=== PATIENT | male | born 1950 | race Caucasian/White ===

== ENCOUNTER 2020-12-05 15:38 | Outpatient (REF) | payer BC, SELFPAY ==
--- NOTE | ~2020-12-05 | XR_ITS ---
EXAMINATION: XR CERVICAL SPINE CLINICAL INFORMATION: Left neck pain COMPARISON: Previous x-ray chest x-ray September 2009 TECHNIQUE: 3 views of the cervical spine were obtained. FINDINGS: There is exaggerated cervical lordosis. There is slight curvature of the lower cervical spine to the right. Bone alignment is otherwise normal. No fracture or dislocation is seen. There is degenerative spondylosis and degenerative disc disease at C5-C6 and C6-C7. Prevertebral soft tissues are normal. There is soft tissue calcification in the nuchal ligament. There is question of a small 4 mm right apical nodule. This overlies the right anterior first rib and may be related to the bone. XR/XR cervical spine 3V IMPRESSION: Exaggerated cervical lordosis. Degenerative spondylosis and degenerative disc disease at C5-C6 and C6-C7. Question small right apical nodule.
== END 2020-12-05 15:39 | disposition home or self-care (01) ==
LOC: HO.XRAY 15:38
PROVIDERS: PCP Internal Medicine; Visit Provider Internal Medicine
DX: M54.2 Cervicalgia (principal)
CPT/HCPCS: 72040

== ENCOUNTER 2022-05-06 10:29 | Day surgery (SDC) | payer BC, SELFPAY ==
--- NOTE | 2022-05-05 10:52 | P.CONAN_ITS ---
Documented by User: Makayla Chase NP 05/05/22 10:52 HPI - Anesthesia Eval Consult details Narrative: 71yo M for Colonoscopy [facility] Past Medical History Medical History (Updated 05/01/22 @ 08:22 by Bree Veloz RN) BPH (benign prostatic hyperplasia) COPD (chronic obstructive pulmonary disease) GERD (gastroesophageal reflux disease) HTN (hypertension) Surgical History Surgical History (Updated 05/01/22 @ 08:22 by Bree Veloz RN) History of back surgery Hx of colonoscopy Hx of knee surgery Social History Social History Patient Tobacco Use Status: Current everyday Tobacco user Cigarettes Per Day: 8 Use of substances other than those prescribed or required for medical reasons: No Are you DNR?: No Advance Directives: No Advance Directives Information Provided: Yes Meds Allergies Allergy/AdvReac Type Severity Reaction Status Date / Time clarithromycin [Biaxin] Allergy Unknown nausea and Verified 05/01/22 08:23 vomiting Exam Exam Date and Time: May 05, 2022 1052 Assessment and Plan Assessment Anesthesia Assessment: Chart Reviewed Documented by User: Killian Dimas MD 05/06/22 16:51 [facility] Past Medical History Medical History (Updated 05/01/22 @ 08:22 by Bree Veloz RN) BPH (benign prostatic hyperplasia) COPD (chronic obstructive pulmonary disease) GERD (gastroesophageal reflux disease) HTN (hypertension) Functional capacity: independent ambulation Family History Family history of problems with anesthesia: No Surgical History Surgical History (Updated 05/01/22 @ 08:22 by Bree Veloz RN) History of back surgery Hx of colonoscopy Hx of knee surgery History of Problems with Anesthesia: No Social History Social History Patient Tobacco Use Status: Current everyday Tobacco user Cigarettes Per Day: 8 Use of substances other than those prescribed or required for medical reasons: No Are you DNR?: No Advance Directives: No Advance Directives Information Provided: Yes Meds Allergies Allergy/AdvReac Type Severity Reaction Status Date / Time clarithromycin [Biaxin] Allergy Unknown nausea and Verified 05/01/22 08:23 vomiting Exam Airway Mallampati Class: III TM Dist: >3cm Denture: Upper Loose/Missing/Broken Teeth: Yes Heart: S1,S2 Lungs: b/l breath sounds Assessment and Plan Assessment Anesthesia Assessment: Anesthesia Plan Discussed Final Anesthetic Review Family History of Problems with Anesthesia: No History of Problems with Anesthesia: No NPO: Yes ASA Class: II Final Preanesthetic Review: Meds/Allgs Chart Reviewed, Consent Obtained/Reviewed and Anes Risks/Benef Reviewed Patient Risk: Intermediate Procedure Risk: Intermediate Anesthetic Plan Anesthetic Plan: MAC: Disposition: Standard PACU
[2022-05-06 10:59] VITALS: BP 145/76; PULSE 91; RESP 18; TEMP 36.5; O2SAT 98; BMI 25.7
[2022-05-06] MEDS: Lactated Ringers 1,000 ML 100 ML IVCONT (11:11)
--- NOTE | 2022-05-06 11:18 | MHC.SHP ---
Pre-Procedural Eval Section A Date of Service: 05/06/22 The patient is an INPATIENT: No Changes since office visit: No Cold of Flu in the past 2 weeks, No New Medical Problems, No Changes in Medication and No Patient answered all questions The History & Physical has been completed within 30 days and I have reviewed it.: Yes Section B Chief Complaint: screening Allergies: Allergies Allergy/AdvReac Type Severity Reaction Status Date / Time clarithromycin [Biaxin] Allergy Unknown nausea and Verified 05/01/22 08:23 vomiting Plan I have reviewed the history and physical and performed a pertinent physical examination on my patient. No changes have occurred unless specified.
--- NOTE | 2022-05-06 11:57 | P.BOP_ITS ---
Brief Operative Note Date of Service: 05/06/22 Pre-op diagnosis: screening Post-op diagnosis: same Procedure: colonoscopy Surgeon: Levon Cabrera Anesthesia: MAC Was an Card Game Operator used for this Procedure?: No Estimated blood loss (mL): 0 Pathology: none sent Condition: stable Disposition: PACU
[2022-05-06 12:02] VITALS: BP 80/45; PULSE 70; RESP 16; TEMP 36.2; O2SAT 98
[2022-05-06 12:17] VITALS: BP 107/66; PULSE 78; RESP 18; TEMP 36.2; O2SAT 96
--- NOTE | 2022-05-06 22:59 | OP_ITS ---
SURGEON: Levon Cabrera MD INDICATIONS: Colon cancer screening. PREOPERATIVE DIAGNOSIS: POSTOPERATIVE DIAGNOSIS: PROCEDURE PERFORMED: Colonoscopy to the terminal ileum. ESTIMATED BLOOD LOSS: COMPLICATIONS: ANESTHESIA: ASSISTANTS: SPECIMENS: MEDICATIONS: Monitored anesthesia care. DESCRIPTION OF PROCEDURE: History and physical performed. The risks and benefits of the procedure were explained to the patient. Informed consent was obtained. The patient was placed in the left lateral decubitus position. A digital rectal exam was performed and was found to be normal. The Olympus pediatric video colonoscope was introduced into the rectum and advanced to the cecum without difficulty. The cecum was identified by transillumination, palpation, and identification of ileocecal valve. Examination was performed. The scope was removed. He tolerated the procedure well should recovery area in stable condition. FINDINGS: The terminal ileum was normal. The visualized colonic mucosa was normal. The quality of the prep was fair with some liquid stool coating the mucosa throughout the colon. This was washed and suctioned. No polyps were identified, although small flat polyps could have been missed. Retroflexed examination showed small internal hemorrhoids. IMPRESSION: Normal colonoscopy. RECOMMENDATIONS: 1. Follow up as needed. 2. Repeat colonoscopy is recommended in 10 years for average risk individuals. This is optional based on the patient's age. MD LE Huang/AMIEL / [id number]
== END 2022-05-06 12:40 | disposition home or self-care (01) ==
PROVIDERS: PCP Internal Medicine; Visit Provider Internal Medicine Gastroenterology
PROC: 0DJD8ZZ Inspection of Lower Intestinal Tract, Via Natural or Artificial Opening Endoscopic (ICD-10-PCS; CPT 45378; principal; 2022-05-06 11:30)
DX: Z12.11 Encounter for screening for malignant neoplasm of colon (principal); K64.8 Other hemorrhoids; K21.9 Gastro-esophageal reflux disease without esophagitis; N40.0 Benign prostatic hyperplasia without lower urinary tract symptoms; G47.00 Insomnia, unspecified; J44.9 Chronic obstructive pulmonary disease, unspecified; I10 Essential (primary) hypertension; F17.210 Nicotine dependence, cigarettes, uncomplicated; Z88.1 Allergy status to other antibiotic agents; H40.9 Unspecified glaucoma; Z79.899 Other long term (current) drug therapy; Z96.643 Presence of artificial hip joint, bilateral; Z96.651 Presence of right artificial knee joint
CPT/HCPCS: 45378

== ENCOUNTER 2022-07-25 12:18 | Outpatient (REF) | payer BC, SELFPAY ==
--- NOTE | ~2022-07-25 | XR_ITS ---
EXAMINATION: XR CHEST CLINICAL INFORMATION: COPD. Weight loss. COMPARISON: Previous chest x-ray September 2009 TECHNIQUE: 2 views of the chest were obtained. FINDINGS: The cardiac silhouette does not appear enlarged. The thoracic aorta is tortuous. Hilar and mediastinal contours are otherwise unremarkable. There is question of a left base pulmonary nodule measuring 1 cm versus overlapping bone and vascular structures, the left anterior sixth rib. The lungs are otherwise clear. There is no pleural effusion or pneumothorax. There are degenerative changes of the spine. XR/XR chest 2V IMPRESSION: Tortuous thoracic aorta. Question left base pulmonary nodule versus overlapping bone and vascular structures.
--- NOTE | ~2022-07-25 | US_ITS ---
EXAMINATION: NONINVASIVE ASSESSMENT OF THE ARTERIES OF LEFT LOWER EXTREMITY Flako Quinteros MD CLINICAL INFORMATION: Left calf pain TECHNIQUE: Left lower extremity duplex ultrasound was performed with velocity measurements and waveform analysis in the common femoral arteries, profunda femoris arteries, proximal mid and distal superficial femoral arteries, popliteal arteries and tibial vessels. This study was performed only at rest. COMPARISON: CT abdomen pelvis 01/05/2017 FINDINGS: Velocities in cm/sec and phasicity as well as the presence of plaque are reported below. LEFT LEG: Calcified plaque seen in the left common femoral artery. SFA at its origin with reconstitution distally with monophasic flow beyond that level. Monophasic flow is also noted in the common femoral and profunda femoris arteries suggesting inflow disease. Common Femoral: 154 Profunda Femoris: 225 Proximal SFA: Occluded Mid SFA: Occluded Distal SFA: 432 Popliteal: 86 Posterior tibial: 37 Peroneal: 17 US/US arterial duplex LE LT IMPRESSION: Hemodynamically significant left lower extremity disease with question of inflow disease in addition to SFA occlusion. Monophasic flow noted throughout.
== END 2022-07-25 12:19 | disposition home or self-care (01) ==
LOC: HO.US 12:18
PROVIDERS: PCP Internal Medicine; Visit Provider Internal Medicine
DX: M79.662 Pain in left lower leg (principal); J44.9 Chronic obstructive pulmonary disease, unspecified; R63.4 Abnormal weight loss
CPT/HCPCS: 71046; 93926

== ENCOUNTER → 2022-10-07 09:01 | Outpatient (BNVA) | payer BC, SELFPAY | PROVIDERS: PCP Internal Medicine; Visit Provider Surgery Vascular Surgery | DX: Z13.89 Encounter for screening for other disorder (principal) ==

== ENCOUNTER 2022-10-29 06:01 | Day surgery (SDC) | payer BC, SELFPAY ==
[2022-10-28 15:32] VITALS: BMI 25.0
[2022-10-29] VITALS (11 sets, daily range): BP systolic 107–134; BP diastolic 53–75; PULSE 61–90; RESP 16–18; TEMP 36.6–37.1; O2SAT 94–99
[2022-10-29] MEDS: 0.9 % Sodium Chloride 1,000 ML 100 ML IVCONT (06:20)
[2022-10-29 06:32] LABS: MANUAL DIFF FLAG NO
[2022-10-29 06:34] LABS: Basophils Percent Auto 0.7 % (0-2); Eosinophils Absolute Auto 0.3 X10*3/uL (0.0-0.4); Eosinophils Percent Auto 4.8 % (0-4); Hematocrit 39.6 % (42.0-52.0); Imm Gran Abs Auto 0.01 X10*3/uL (0.00-0.03); Imm Gran Pct Auto 0.2 % (0.0-0.4); Lymphocytes Absolute Auto 1.3 X10*3/uL (1.2-4.9); Lymphocytes Percent Auto 21.5 % (20-40); Mean Corpuscular HGB Conc 32.8 g/dl (31.0-36.0); Mean Corpuscular Hemoglobin 29.5 pg (27.0-33.0); Mean Platelet Volume 8.5 fL (9.4-12.4); Monocytes Absolute Auto 0.6 X10*3/uL (0.1-1.2); Monocytes Percent Auto 9.6 % (2-11); Neutrophils Absolute Auto 3.8 x10*3/uL (2.0-8.3); Neutrophils Percent Auto 63.2 % (45-73); Platelet Count 222 X10*3/uL (160-400); Red Cell Distribution Width 14.1 % (11.0-16.0)
[2022-10-29 06:50] LABS: Blood Urea Nitrogen 26 mg/dL (9-16); Estimated Glomerular Filt Rate 45
--- NOTE | 2022-10-29 09:14 | P.OP_ITS ---
Operative Note Operative Note Date of Service: 10/29/22 Narrative: Angiogram report from [facility] Preoperative diagnosis: Atherosclerosis of left lower extremity with activity limiting claudication Postoperative diagnosis: Same Procedure: 1. Ultrasound-guided right common femoral access 2. Aortogram with left lower extremity runoff Surgeon:Adria Albrecht M.D., FACS, RPVI Emulsion Coater:None Anesthesia: Local with moderate conscious sedation. Total intraservice mode rate sedation time was 33 minutes. I monitored the patient's level of consciousness and physiologic status continuously throughout the procedure. Specimens:none Drains:none Estimated blood loss: Less than 10 ml Implant: None Indications: Very pleasant 72-year-old gentleman presents for endovascular intervention. He had noninvasive testing which demonstrated SFA occlusion. He has activity limiting claudication. He now presents for intervention The patient has signed the informed consent after reviewing risks, complications, benefits, and alternatives previously discussed with the patient. The patient was given the opportunity to ask any additional questions or voice any concerns. All questions were answered to the patient's satisfaction. Procedure in detail: Patient was brought to the angiography suite prior to which a time-out was called for patient identification and site verification. Bilateral groins were prepped and draped in the standard surgical fashion. Under ultrasound guidance right common femoral was punctured with micro puncture needle and wire. Subsequently a precision 4 Macanese sheath was then placed. Bentson wire was advanced to the level of the aorta. 4 Macanese Flush catheter was brought up and parked at the level of the renal arteries. Aortogram was then undertaken. Catheter was brought down to the level of the iliac bifurcation. Iliacs were subsequently imaged. Catheter was then brought in up and over to the left side common femoral. Runoff study was then undertaken. No intervention was indicated catheter wire and sheath was removed. 10 minutes of direct pressure was held. Patient tolerated the procedure well. Interpretation of films: 1. Ultrasound demonstrates appropriate femoral puncture. Image of which was saved. 2. Aortogram demonstrates appropriate caliber aorta. Minimal disease. Appropriate take-off of the renals. 3. Iliac images demonstrate no significant disease, some tortuosity had to rotate around the common femorals as he did have prior hip prosthetics. 4. Left Leg Common femoral artery: No significant disease Profundus Femoris: No significant disease very dominant and provides a strong collateral Superficial femoral artery: Total occlusion Popliteal artery (p1,p2,p3): Reconstitutes at the above knee popliteal good flow all the way through P2 segment has a mild stenosis with a good collateral Anterior tibial artery: Patent and dominant Peroneal artery: Patent and diminutive Posterior tibial artery: Patent and dominant Dorsalis pedis/plantar arch: Complete Conclusion: 1. Successful diagnostic angiogram. Unable to perform intervention on total occlusion. If surgery is required he will require femoral to above knee popliteal bypass 2. Anticoagulation status: No change This note is constructed using voice recognition software. While every effort has been made to ensure accuracy, welder setter resistance machine errors may have been included. Thank you for allowing me to participate in the care of your patient. Yours sincerely, Adria Albrecht MD, FACS, R.P.V.I.
== END 2022-10-29 12:53 | disposition home or self-care (01) ==
PROVIDERS: PCP Internal Medicine; Visit Provider Surgery Vascular Surgery
DX: I70.212 Atherosclerosis of native arteries of extremities with intermittent claudication, left leg (principal); M79.662 Pain in left lower leg; R09.89 Other specified symptoms and signs involving the circulatory and respiratory systems; R20.0 Anesthesia of skin; R20.2 Paresthesia of skin; I10 Essential (primary) hypertension; J44.9 Chronic obstructive pulmonary disease, unspecified; F17.210 Nicotine dependence, cigarettes, uncomplicated
CPT/HCPCS: 36246; 36415; 75630; 76937; 82565; 84520; 85025; 99152; 99153; C1769; C1887; J1643; J2250; J3010; Q9967

== ENCOUNTER → 2022-11-13 10:39 | Outpatient (BNVA) | payer BC, SELFPAY | PROVIDERS: PCP Internal Medicine; Visit Provider Surgery Vascular Surgery | DX: Z13.89 Encounter for screening for other disorder (principal) ==

== ENCOUNTER → 2022-11-25 10:19 | Outpatient (BNVA) | payer BC, SELFPAY | PROVIDERS: PCP Internal Medicine; Visit Provider Internal Medicine Pulmonary Disease | DX: Z13.89 Encounter for screening for other disorder (principal) ==

== ENCOUNTER 2022-12-04 07:54 | Outpatient (REF) | payer BC, SELFPAY ==
--- NOTE | 2022-12-04 15:32 | PFT_ITS ---
Forced vital capacity 61%, FEV1 49%, FEV1/FVC ratio is 60. FHX95-22 33% and MVV 46%. Post bronchodilator therapy, there is a slight improvement in MTZ03-77 and MVV. Total lung capacity 84%. Residual volume 133%. Diffusion capacity 55% CONCLUSION: Moderately severe obstructive airway disorder. There is borderline or minimal improvement after bronchodilator therapy. Clinical correlation is recommended. MD DIONY Rea/SO / [id number]
== END 2022-12-04 07:55 | disposition home or self-care (01) ==
LOC: HO.RESP 07:54
PROVIDERS: PCP Internal Medicine; Visit Provider Internal Medicine Pulmonary Disease
DX: Z01.811 Encounter for preprocedural respiratory examination (principal); J44.9 Chronic obstructive pulmonary disease, unspecified
CPT/HCPCS: 94060; 94727; 94729

== ENCOUNTER 2022-12-29 06:07 | Inpatient (IN) | payer MEDICARE, BC, SELFPAY ==
[2022-12-22 11:43] VITALS: BP 137/74; PULSE 78; RESP 16; O2SAT 98; BMI 25.6
--- NOTE | 2022-12-22 12:25 | HO.ANESPROP2 ---
Documented by User: Makayla Chase NP 12/22/22 12:35 HPI - Anesthesia Eval Consult details Narrative: 72yo M for Left Femoral Popliteal Bypass Graft Cardiac cleared Pulmo cleared PMFSH Active Problems Active Problems: All Active Problems (Updated 12/22/22 @ 12:22 by Shefali Griffith RN) PAD (peripheral artery disease) (Acute) Preop pulmonary/respiratory exam (Acute) COPD (chronic obstructive pulmonary disease) (Acute) Past Medical History Medical History (Updated 12/22/22 @ 12:27 by Shefali Griffith RN) BPH (benign prostatic hyperplasia) COPD (chronic obstructive pulmonary disease) GERD (gastroesophageal reflux disease) Glaucoma History of femoral angiogram Family History Family history of problems with anesthesia: No Surgical History Surgical History (Updated 12/29/22 @ 14:41 by Kiran Hernandez MD) History of back surgery Hx of bilateral hip replacements Hx of colonoscopy Hx of knee surgery Hx of total knee replacement Status post right rotator cuff repair History of Problems with Anesthesia: No Social History Social History (Updated 12/22/22 @ 12:15 by Shefali Griffith RN) Household Members: None Housing: Condominium Are you a primary long term care phlebotomist to a significant other at home: No Do you presently have visiting nurse or other home services: No Patient Tobacco Use Status: Current everyday Tobacco user Tobacco use type: Cigarette Cigarettes Per Day: 4 Years Smoked: 50 Smoked in Last 30 Days: Yes Patient Interested in Nicotine Replacement: No Patient Given Instructions on How to Stop Smoking: Yes Date Education Initiated: 12/22/22 Second Hand Smoke Exposure: No Use of substances other than those prescribed or required for medical reasons: No Have you been hit, kicked, punched, or otherwise hurt by someone within the past year? If so, by whom?: No Do you feel safe in your current relationship?: No Current Relationship Is there a partner from a previous relationship who is making you feel unsafe now?: No Spiritual Healthcare Practices: none Taoism Healthcare Practices: none Cultural Healthcare Practices: none Are you DNR?: No Advance Directives: No (will bring dos) Advance Directives Information Provided: No Advance Directives on File: No Do you have thoughts of harming others: None Do you have a plan to hurt others: No Plan Recently lost weight without trying: Yes How much weight loss: 2-13 pounds Eating poorly because of decreased appetite: No Nutrition screen score: 3 Nutrition Risks: No Nutritional Risk Poor oral hygiene: No Narrative Narrative: No recent illnes No CP/SOB Meds Allergies Allergy/AdvReac Type Severity Reaction Status Date / Time No Known Allergies Allergy Verified 12/22/22 12:07 Home Medications Medication Instructions Recorded Confirmed Last Taken Type omeprazole 20 mg capsule,delayed 20 mg PO DAILY 10/07/22 12/19/22 10/28/22 History release tamsulosin 0.4 mg capsule 0.4 mg PO QPM 10/07/22 12/19/22 10/28/22 History trazodone 100 mg tablet 100 mg PO BEDTIME 10/07/22 12/19/22 10/28/22 History dorzolamide 22.3 mg-timolol 6.8 1 drp ophthalmic-Left BID 12/22/22 12/22/22 Unknown History mg/mL eye drops latanoprost 0.005 % eye drops 1 drp ophthalmic (eye) BEDTIME 12/22/22 12/22/22 Unknown History Exam Exam Date and Time: December 22, 2022 1225 Height,Weight and Vital Signs: Height 6 ft 1 in Weight 87.997 kg Last Vital Signs Pulse 78 12/22/22 11:43 Resp 16 12/22/22 11:43 BP 137/74 12/22/22 11:43 Pulse Ox 98 12/22/22 11:43 O2 Del Method 12/22/22 11:43 Narrative Narrative: EKG 11/2027 NSR @ 87 PFT 12/2022 Forced vital capacity 61%, FEV1 49%, FEV1/FVC ratio is 60.? NEN60-69 33% and MVV 46%. Post bronchodilator therapy, there is a slight improvement in IZN10-30 and MVV. Total lung capacity 84%.? Residual volume 133%. Diffusion capacity 55% ? CONCLUSION:? Moderately severe obstructive airway disorder. There is borderline or minimal improvement after bronchodilator therapy. Clinical correlation is recommended. Assessment and Plan Assessment Anesthesia Assessment: Anesthesia Plan Discussed and PAT Visit Final Anesthetic Review Family History of Problems with Anesthesia: No History of Problems with Anesthesia: No Documented by User: Killian Dimas MD 12/29/22 17:35 HPI - Anesthesia Eval Consult details Narrative: 72yo M for Left Femoral Popliteal Bypass Graft Cardiac cleared Pulmo cleared Will give Duo-neb pre-op PMFSH Past Medical History Medical History (Updated 12/22/22 @ 12:27 by Shefali Griffith RN) BPH (benign prostatic hyperplasia) COPD (chronic obstructive pulmonary disease) GERD (gastroesophageal reflux disease) Glaucoma History of femoral angiogram Functional capacity: independent ambulation Surgical History Surgical History (Updated 12/29/22 @ 14:41 by Kiran Hernandez MD) History of back surgery Hx of bilateral hip replacements Hx of colonoscopy Hx of knee surgery Hx of total knee replacement Status post right rotator cuff repair Social History Social History (Updated 12/22/22 @ 12:15 by Shefali Griffith RN) Household Members: None [facility] Are you a primary long term care phlebotomist to a significant other at home: No Do you presently have visiting nurse or other home services: No Patient Tobacco Use Status: Current everyday Tobacco user Tobacco use type: Cigarette Cigarettes Per Day: 4 Years Smoked: 50 Smoked in Last 30 Days: Yes Patient Interested in Nicotine Replacement: No Patient Given Instructions on How to Stop Smoking: Yes Date Education Initiated: 12/22/22 Second Hand Smoke Exposure: No Use of substances other than those prescribed or required for medical reasons: No Have you been hit, kicked, punched, or otherwise hurt by someone within the past year? If so, by whom?: No Do you feel safe in your current relationship?: No Current Relationship Is there a partner from a previous relationship who is making you feel unsafe now?: No Spiritual Healthcare Practices: none Taoism Healthcare Practices: none Cultural Healthcare Practices: none Are you DNR?: No Advance Directives: No (will bring dos) Advance Directives Information Provided: No Advance Directives on File: No Do you have thoughts of harming others: None Do you have a plan to hurt others: No Plan Recently lost weight without trying: Yes How much weight loss: 2-13 pounds Eating poorly because of decreased appetite: No Nutrition screen score: 3 Nutrition Risks: No Nutritional Risk Poor oral hygiene: No Meds Allergies Allergy/AdvReac Type Severity Reaction Status Date / Time No Known Allergies Allergy Verified 12/22/22 12:07 Home Medications Medication Instructions Recorded Confirmed Last Taken Type omeprazole 20 mg capsule,delayed 20 mg PO DAILY 10/07/22 12/19/22 10/28/22 History release tamsulosin 0.4 mg capsule 0.4 mg PO QPM 10/07/22 12/19/22 10/28/22 History trazodone 100 mg tablet 100 mg PO BEDTIME 10/07/22 12/19/22 10/28/22 History dorzolamide 22.3 mg-timolol 6.8 1 drp ophthalmic-Left BID 12/22/22 12/22/22 Unknown History mg/mL eye drops latanoprost 0.005 % eye drops 1 drp ophthalmic (eye) BEDTIME 12/22/22 12/22/22 Unknown History Exam Airway Mallampati Class: III Denture: Upper and Lower Loose/Missing/Broken Teeth: Yes Heart: S1,S2 Lungs: b/l breath sounds Assessment and Plan Assessment Anesthesia Assessment: Chart Reviewed Final Anesthetic Review NPO: Yes ASA Class: III Final Preanesthetic Review: Meds/Allgs Chart Reviewed, Consent Obtained/Reviewed and Anes Risks/Benef Reviewed Patient Risk: Intermediate Procedure Risk: Intermediate Anesthetic Plan Anesthetic Plan: GA Disposition: Inp. Admit - ICU
[2022-12-22 13:30] LABS: Hematocrit 40.9 % (42.0-52.0); Hemoglobin 13.1 g/dl (14.0-18.0); Mean Corpuscular Hemoglobin 29.6 pg (27.0-33.0); Mean Corpuscular Volume 92.5 fL (80.0-98.0); Mean Platelet Volume 9.4 fL (9.4-12.4); Platelet Count 190 X10*3/uL (160-400); Red Blood Count 4.42 X10*6/uL (4.60-5.80); White Blood Count 5.2 X10*3/uL (4.8-10.8)
[2022-12-22 13:39] LABS: Prothrombin Time 11.5 SEC (10.0-13.1)
[2022-12-22 13:42] LABS: Partial Thromboplastin Time 31.1 SEC (26.0-36.4)
[2022-12-22 13:55] LABS: Anion Gap 15 (12-20); Blood Urea Nitrogen 29 mg/dL (9-16); Calcium 9.6 mg/dL (8.4-10.2); Carbon Dioxide 29 mmol/L (22-29); Chloride 102 mmol/L (96-108); Creatinine Clr Calc Pharmacy 50.3; Estimated Glomerular Filt Rate 45; Glucose Random 74 mg/dL (60-115); Sodium 141 mmol/L (135-145)
[2022-12-29] VITALS (20 sets, daily range): BP systolic 103–136; BP diastolic 41–89; PULSE 51–92; RESP 12–18; TEMP 36.1–36.8; O2SAT 91–100
--- OUTSIDE RECORDS SUMMARY | 2022-12-29 06:15 | XMS_ITS ---
Author Name Levon Cabrera Jr Address [address] [place] [address] Organization [facility] Address [address] [place] [address] Care Team Providers Care Hog Ringer Name Role Phone Levon Cabrera Jr Unavailable PROBLEMS Type Condition ICD9-CM Code [id number]-BN Code Onset Dates Condition Status SNOMED Code Problem Encounter for other preprocedural examination Z01.818 Active 745626798 Problem Colon cancer screening Z12.11 Active [id number] ALLERGIES No Known Allergies ENCOUNTERS Encounter Location Date Diagnosis [facility] Outpatient [address] [place] [address] [id number] May, Colon cancer screening Z12.11 and Internal hemorrhoids K64.8 [facility] [address] [place] [phone] Apr, [facility] [address] [place] [phone] Apr, Colon cancer screening Z12.11 and Encounter for other preprocedural examination Z01.818 IMMUNIZATIONS No Known Immunizations SOCIAL HISTORY Qualifiers Date Current Smoker REASON FOR REFERRAL FUNCTIONAL STATUS PLAN OF CARE Activity Details VITAL SIGNS Weight 190 lbs 2022-04-09 Height 73 in 2022-04-09 BMI 25.06 kg/m2 2022-04-09 Temperature 97.8 degrees Fahrenheit Blood pressure systolic 000 mm Hg Blood pressure diastolic 00 mm Hg 2022-04 MEDICATIONS Medication Instructions Dosage Frequency Start Date End Date Duration Status Omeprazole 20 MG 90 Active Tamsulosin HCl 0.4 MG 30 Active traZODone HCl 100 MG 30 Active Latanoprost 0.005 % 56 Active MiraLax (colon prep) 17 GM/SCOOP Orally begin at 5:00 p.m. the day before the procedure mixed with Gatorade or Crystal Light Apr, 1 day Active Combigan 0.2-0.5 % 75 Active PROCEDURES Procedure Date Ordered Result Body Site DOC RSN FOR NOT SCREEN/REC F/U HBP April 09, 2022 Pt scrn tbco id as non user April 09, 2022 DOC MEDS VERIFIED W/PT OR RE April 09, 2022 COLORECTAL CA SCREEN DOC REV April 09, 2022 DIAGNOSTIC COLONOSCOPY May 06, 2022 RESULTS No Results REASON FOR VISIT screening, Please lock office visit note, Patient presents today for a COLON SCREENING Insurance Providers Health Insurance Type Health Plan Insurance Address Health Plan Insurance Phone Health Plan Insurance Name Health Plan Coverage Dates Member ID Patient Relationship to Subscriber Patient Address Patient Phone Patient Name Patient Date of Subscriber ID Subscriber Name Subscriber Date of Group No [employer] [address] [facility] [id number] [employer] self GERARDO OROZCO [id number]
[2022-12-29] MEDS: Lactated Ringers 1,000 ML 100 ML IVCONT (06:29)
[2022-12-29 06:49] LABS: COVID-19 Test Negative (Negative); IDNOW Serial# BCCEAD1C
[2022-12-29 06:50] LABS: Hemoglobin 13.7 g/dl (14.0-18.0); Mean Corpuscular HGB Conc 32.6 g/dl (31.0-36.0); Mean Corpuscular Hemoglobin 29.8 pg (27.0-33.0); Mean Corpuscular Volume 91.3 fL (80.0-98.0); Mean Platelet Volume 8.9 fL (9.4-12.4); Platelet Count 185 X10*3/uL (160-400); Red Cell Distribution Width 14.1 % (11.0-16.0); White Blood Count 5.5 X10*3/uL (4.8-10.8)
[2022-12-29 07:04] LABS: Prothrombin Time 10.9 SEC (10.0-13.1)
[2022-12-29 07:07] LABS: Partial Thromboplastin Time 31.4 SEC (26.0-36.4)
[2022-12-29 07:21] LABS: Anion Gap 11 (12-20); Blood Urea Nitrogen 21 mg/dL (9-16); Calcium 9.3 mg/dL (8.4-10.2); Carbon Dioxide 28 mmol/L (22-29); Chloride 106 mmol/L (96-108); Creatinine Clr Calc Pharmacy 54.6; Estimated Glomerular Filt Rate 50; Glucose Random 106 mg/dL (60-115); Potassium 4.2 mmol/L (3.3-5.1); Sodium 141 mmol/L (135-145)
--- NOTE | 2022-12-29 07:21 | PHA.MEDREC ---
Pharmacy Consult ? Medication Reconciliation Pharmacy has reviewed the medication reconciliation completed by nursing.
--- NOTE | 2022-12-29 07:40 | MHC.SHP ---
Pre-Procedural Eval Section A Date of Service: 12/29/22 Section B Chief Complaint: Postop Details of Present Illness: activity limiting claudicant Relevant Family History (Specify if Yes): No Relevant Social History: Tobacco Use Medical History: Significant History Allergies: Allergies Allergy/AdvReac Type Severity Reaction Status Date / Time No Known Allergies Allergy Verified 12/22/22 12:07 Review of Systems Sugical H&P ROS: Negative: Constitution, Cardiovascular, Respiratory and Musculoskeletal Exam Surgical H&P Exam: Normal: HEENT, Normal: Heart, Normal: Lungs, Normal: Abdomen, Normal: Skin and Normal: Neurological and Significant Findings: Extremities (dp signals bilat) Plan Diagnosis/Plan: Unchanged I have reviewed the history and physical and performed a pertinent physical examination on my patient. No changes have occurred unless specified. Time Spent With Patient Time: Total time managing care of this patient today ____ minutes.
--- NOTE | 2022-12-29 11:21 | W.PM.OPN ---
Operative Note Operative Note Date of Service: 12/29/22 Narrative: Operative note by [facility] Preoperative diagnosis:Left leg atherosclerotic disease with activity limiting claudication Postoperative diagnosis: same Procedure:1. left femoral endarterectomy with remote endarterectomy of profundus femoral 2. left femoral to above knee popliteal bypass 3. evacuation of distal thrombus Surgeon:Adria Albrecht M.D. Health Policy Manager: Dr. Colon Anesthesia: general Specimens: 1 Drains: none Estimated blood loss: 300 mL Indications: very pleasant 72-year-old gentleman with a history peripheral vascular disease was known to have a total occlusion on diagnostic angiogram. He now presents for fem-pop bypass. The patient has signed the informed consent after reviewing risks, complications, benefits, and alternatives previously discussed with the patient. The patient was given the opportunity to ask any additional questions or voice any concerns. All questions were answered to the patient's satisfaction. Procedure in detail: Patient was brought to the operating room prior to which a time-out was called for patient identification site verification. Left leg was prepped and draped in standard surgical fashion. First we made a longitudinal incision over the common femoral artery just at the level of the inguinal ligament. We dissected down to the common femoral profundus and SFA. These were encircled with silastic loops. We then did an above knee popliteal cutdown. This was done between the stories in vastus medialis. We went through the fashion was able to identify the popliteal artery under Doppler guidance. Once this was identified we encircled this with silastic loops as well. We then did a tunnel with an aortic clamp. And passed a umbilical tape through this tunnel. At this time we administered 5000 units of systemic heparin. After 5 minutes of circulation time We clamped off the common femoral artery. Once in we notice significant atherosclerotic plaque. We did a common femoral endarterectomy and we actually had to do remote endarterectomy of the profundus femorals to get good backbleeding. Once this was accomplishednwe then anastomosed a Buckner Propaten 6 x 50 graft. The proximal and was trimmed down appropriately and we circumferentially anastomosed this with a Buckner CV 5 suture. We flushed through the graft itself. Adequate hemostasis was achieved snow was then placed. We then brought the graft through the previously created tunnel. Once in appropriate position we then once again trimmed the graft. we then performed the popliteal arteriotomy. Thrombus was noted within. This was subsequently evacuated with right angles. We then flushed this area clean. We did have good back bleeding. We then circumferentially anastomosed in a similar manner the graft which had been trimmed down with a CV 6 Buckner suture. Prior to closure this was flushed clean. We then closed. Adequate hemostasis was achieved with interrupted 6 0 Prolene sutures. Once this was accomplished to seal sealant was then placed. Deep layer was reapproximated using 2 0 Polysorb superficial layer with 3-0 poly Sorb by skin with skin clips. Local was instilled prior to complete closure. Sterile dressings were applied. At the end of the case sponge needle instrument counts were correct. Patient tolerated the procedure well. Returned to recovery with stable vitals. This note is constructed using voice recognition software. While every effort has been made to ensure accuracy, user interface artist errors may have been included. Thank you for allowing me to participate in the care of your patient. Yours sincerely, Adria Albrecht MD, FACS, R.P.V.I.
[2022-12-29] MEDS: 0.9 % Sodium Chloride 1,000 ML 80 ML IVCONT ×2 (12:10→23:35)
[2022-12-29] MEDS: ceFAZolin Sodium/Dextrose,Iso 2 GM/50 ML PIGGYBACK IV (13:00)
[2022-12-29] MEDS: 0.9 % Sodium Chloride Flush 3 ML SYRINGE IVFLUSH ×2 (13:00→23:47)
[2022-12-29] MEDS: Morphine Sulfate 2 MG/ML CARTRIDGE IVPUSH (13:04)
[2022-12-29] MEDS: oxyCODONE HCl Immed Release 5 MG TABLET PO ×2 (13:42→19:51)
--- NOTE | 2022-12-29 14:37 | P.CONCC_ITS ---
History of Present Illness Data of Consult Service Date: 12/29/22 Requesting physician: Adria Albrecht Primary Care Provider: Bobby Deleon MD [facility] Reason for consult: status post femoral to popliteal bypass surgery 72-year-old former smoker with underlying COPD with peripheral vascular disease and progressive claudication now status post uneventful femoral popliteal bypass on the left with a 1+ palpable dorsalis pedis pulse on the left side with good skin color and no complication in normal sinus rhythm with EKG showing no evidence of ST-T abnormality and bedside echo showing globally normal systolic wall motion with 60% ejection fraction and no primary valve or pericardial disease without shortness of breath no wheezing Review of Systems Review of Systems: Yes all other systems are reviewed and are negative [facility] Past Medical History Medical History (Updated 12/22/22 @ 12:27 by Shefali Griffith RN) BPH (benign prostatic hyperplasia) COPD (chronic obstructive pulmonary disease) GERD (gastroesophageal reflux disease) Glaucoma History of femoral angiogram Functional capacity: independent ambulation Surgical History Surgical History (Updated 12/29/22 @ 14:41 by Kiran Hernandez MD) History of back surgery Hx of bilateral hip replacements Hx of colonoscopy Hx of knee surgery Hx of total knee replacement Status post right rotator cuff repair Social History Social History (Updated 12/22/22 @ 12:15 by Shefali Griffith RN) Household Members: None Housing: Condominium Are you a primary hospice patient care secretary to a significant other at home: No Do you presently have visiting nurse or other home services: No Patient Tobacco Use Status: Current everyday Tobacco user Tobacco use type: Cigarette Cigarettes Per Day: 4 Years Smoked: 50 Smoked in Last 30 Days: Yes Patient Interested in Nicotine Replacement: No Patient Given Instructions on How to Stop Smoking: Yes Date Education Initiated: 12/22/22 Second Hand Smoke Exposure: No Use of substances other than those prescribed or required for medical reasons: No Have you been hit, kicked, punched, or otherwise hurt by someone within the past year? If so, by whom?: No Do you feel safe in your current relationship?: No Current Relationship Is there a partner from a previous relationship who is making you feel unsafe now?: No Spiritual Healthcare Practices: none Jain Healthcare Practices: none Cultural Healthcare Practices: none Are you DNR?: No Advance Directives: No (will bring dos) Advance Directives Information Provided: No Advance Directives on File: No Do you have thoughts of harming others: None Do you have a plan to hurt others: No Plan Recently lost weight without trying: Yes How much weight loss: 2-13 pounds Eating poorly because of decreased appetite: No Nutrition screen score: 3 Nutrition Risks: No Nutritional Risk Poor oral hygiene: No Meds Allergies Allergy/AdvReac Type Severity Reaction Status Date / Time No Known Allergies Allergy Verified 12/22/22 12:07 Active Medications: Current Medications Acetaminophen (Acetaminophen 325 Mg Tablet) 650 mg PO Q6H PRN PRN Reason: Pain, Mild (Pain Scale 1-3) Dorzolamide/Timolol (Dorzolamide/Timolo 2.23%/0.68% 10 Ml Drbtl) 1 drop EYE- LEFT BID [facility] Sodium Chloride (Ns) 1,000 mls @ 80 mls/hr IVCONT .[id number] [facility] Last Admin: 12/29/22 12:10 Dose: 80 mls/hr Latanoprost (Latanoprost 0.005 % Ophth Rachell 2.5 Ml Drops) 1 drop EYE-BOTH BEDTIME [facility] Morphine Sulfate (Morphine Sulfate 2 Mg/Ml Cartridge) 2 mg IVPUSH Q4H PRN; Protocol PRN Reason: Pain, Severe (Pain Scale 7-10) Last Admin: 12/29/22 13:04 Dose: 2 mg Omeprazole (Omeprazole 20 Mg Capsule.Dr) 20 mg PO DAILY [facility] Oxycodone HCl (Oxycodone Hcl Immed Release 5 Mg Tablet) 5 mg PO Q4H PRN PRN Reason: Pain, Moderate (Pain Scale 4-6 Last Admin: 12/29/22 13:42 Dose: 5 mg Sodium Chloride (0.9 % Sodium Chloride Flush 3 Ml Syringe) 3 ml IVFLUSH QSHIFT [facility] Last Admin: 12/29/22 13:00 Dose: 3 ml Tamsulosin HCl (Tamsulosin Hcl 0.4 Mg Capsule) 0.4 mg PO BEDTIME [facility] Trazodone HCl (Trazodone Hcl 100 Mg Tablet) 100 mg PO BEDTIME [facility] Home Medications Medication Instructions Recorded Confirmed Last Taken Type omeprazole 20 mg capsule,delayed 20 mg PO DAILY 10/07/22 12/19/22 10/28/22 History release tamsulosin 0.4 mg capsule 0.4 mg PO QPM 10/07/22 12/19/22 10/28/22 History trazodone 100 mg tablet 100 mg PO BEDTIME 10/07/22 12/19/22 10/28/22 History dorzolamide 22.3 mg-timolol 6.8 1 drp ophthalmic-Left BID 12/22/22 12/22/22 Unknown History mg/mL eye drops latanoprost 0.005 % eye drops 1 drp ophthalmic (eye) BEDTIME 12/22/22 12/22/22 Unknown History Physical Exam Vital Signs: Vital Signs: Last Vital Signs Temp 97.0 F 12/29/22 11:45 Pulse 57 12/29/22 14:00 Resp 16 12/29/22 14:00 BP 126/56 L 12/29/22 14:00 Pulse Ox 94 12/29/22 14:00 O2 Del Method Nasal Cannula 12/29/22 14:00 O2 Flow Rate 2 12/29/22 14:00 BMI result Body Mass Index 25.6 awake and alert without complaint vital signs stable in sinus rhythm bedside echo with class 1 LV function chest without adventitious sounds good skin color and palpable dorsalis pedis pulse on the left side abdomen benign with no organomegaly Results Labs 12/29/22 06:39 12/29/22 06:39 Labs: Short CBC 12/29/22 Range/Units 06:39 WBC 5.5 (4.8-10.8) X10*3/uL Hgb 13.7 L (14.0-18.0) g/dl Hct 42.0 (42.0-52.0) % Plt Count 185 (160-400) X10*3/uL BMP 12/29/22 06:39 Sodium 141 Potassium 4.2 Chloride 106 Carbon Dioxide 28 BUN 21 H Creatinine 1.40 Calcium 9.3 Assessment and Plan (1) PAD (peripheral artery disease): Status: Acute (2) COPD (chronic obstructive pulmonary disease): Status: Acute (3) S/P femoral-popliteal bypass surgery: Status: Acute Plan arterial line remains in and simple observation at this point no intervention is required Time Spent With Patient Time: Total time managing care of this patient today 35____ minutes.
[2022-12-29] MEDS: Latanoprost 0.005 % Ophth Sol 2.5 ML DROPS 1 DROP EYE-BOTH (20:54)
[2022-12-29] MEDS: Tamsulosin HCL 0.4 MG CAPSULE PO (20:54)
[2022-12-29] MEDS: traZODone HCL 100 MG TABLET PO (20:54)
[2022-12-29] MEDS: Dorzolamide/Timolo 2.23%/0.68% 10 ML DRBTL 1 DROP EYE-LEFT (20:54)
[2022-12-30] VITALS (16 sets, daily range): BP systolic 102–135; BP diastolic 39–71; PULSE 47–87; RESP 12–22; TEMP 36.6–37.1; O2SAT 92–98; BMI 27.7
[2022-12-30] MEDS: oxyCODONE HCl Immed Release 5 MG TABLET PO ×3 (02:13→20:46)
[2022-12-30 04:49] LABS: MANUAL DIFF FLAG NO
[2022-12-30 04:54] LABS: Basophils Percent Auto 0.1 % (0-2); Eosinophils Percent Auto 0.3 % (0-4); Hemoglobin 10.6 g/dl (14.0-18.0); Imm Gran Abs Auto 0.04 X10*3/uL (0.00-0.03); Imm Gran Pct Auto 0.4 % (0.0-0.4); Lymphocytes Percent Auto 9.4 % (20-40); Mean Corpuscular HGB Conc 33.1 g/dl (31.0-36.0); Mean Corpuscular Hemoglobin 30.1 pg (27.0-33.0); Mean Corpuscular Volume 90.9 fL (80.0-98.0); Mean Platelet Volume 9.1 fL (9.4-12.4); Monocytes Absolute Auto 0.7 X10*3/uL (0.1-1.2); Monocytes Percent Auto 6.9 % (2-11); Neutrophils Percent Auto 82.9 % (45-73); Platelet Count 140 X10*3/uL (160-400); Red Blood Count 3.52 X10*6/uL (4.60-5.80); White Blood Count 10.8 X10*3/uL (4.8-10.8)
[2022-12-30 05:19] LABS: Anion Gap 11 (12-20); Blood Urea Nitrogen 23 mg/dL (9-16); Calcium 8.4 mg/dL (8.4-10.2); Carbon Dioxide 25 mmol/L (22-29); Chloride 106 mmol/L (96-108); Creatinine Clr Calc Pharmacy 65.4; Estimated Glomerular Filt Rate > 60; Glucose Random 119 mg/dL (60-115); Potassium 4.2 mmol/L (3.3-5.1); Sodium 138 mmol/L (135-145)
[2022-12-30] MEDS: Omeprazole 20 MG CAPSULE.DR PO (08:35)
[2022-12-30] MEDS: 0.9 % Sodium Chloride Flush 3 ML SYRINGE IVFLUSH (08:35)
--- NOTE | 2022-12-30 09:36 | HO.VASCPN ---
Subjective Subjective Date of Service: 12/30/22 Patient reports: no new complaints and feels better Interval history: In 72-year-old gentleman status post left-sided fem-pop bypass. Appears to be doing relatively well. No events overnight. Pain appears to be well controlled. He now presents routine postop follow-up. Physical Exam Vital Signs: Vital Signs: Last Vital Signs Temp 98 F 12/30/22 05:00 Pulse 72 12/30/22 09:00 Resp 17 12/30/22 09:00 BP 117/43 L 12/30/22 09:00 Pulse Ox 94 12/30/22 09:00 O2 Del Method Room Air 12/30/22 09:00 O2 Flow Rate 2 12/29/22 19:00 BMI result Body Mass Index 27.7 Const: General: cooperative, healthy appearing and no acute distress Orientation/consciousness: oriented to person, oriented to place and oriented to time HEENT: Head: Yes normal to inspection Neck: Carotids: no bruits Chest: Chest palpation & inspection: normal inspection of the chest Resp: Effort & Inspection: normal respiratory effort and able to speak in complete sentences Auscultation: clear to auscultation bilaterally Cardio: Other: Palpable left DP Rate: regular rate Heart sounds: S1 normal heart sound present and S2 normal heart sound present GI: Inspection: Yes normal to inspection Skin: General skin exam: no rashes or lesions noted Wounds: no wounds Neuro: General: oriented to person, oriented to place, oriented to time and CN's II-XI intact bilaterally Extrem: General: Yes normal to inspection, Yes full ROM and Yes no clubbing, cyanosis or edema Psych: Appearance: grossly normal and well kempt Speech and movement: Normal speech and movement present Affect: normal affect Progress Note: A&P Assessment and plan (1) S/P femoral-popliteal bypass surgery: Status: Acute Assessment and Plan: Stable status post fem-pop bypass. Will start subQ heparin. Will be out of bed to chair. BRANDYN A-[place] and Gloria. Stable for transfer out of the ICU Time Spent With Patient Time: Total time managing care of this patient today ____ minutes. Procedures Date of Service Date of Service: 12/30/22 Quality Stroke Does the patient have a stroke diagnosis?: No VTE Prior VTE?: No VTE Risk Level:: Surgical - moderate VTE Device Contraindication: N/A - Device Ordered VTE Drug Contraindication: N/A - Med Ordered
[2022-12-30] MEDS: 0.9 % Sodium Chloride 1,000 ML 40 ML IVCONT (11:22)
[2022-12-30] MEDS: Aspirin Enteric Coated 81 MG TABLET.DR PO (11:24)
[2022-12-30] MEDS: Heparin Sodium,Porcine 5,000 UNIT/ML VIAL 5000 UNIT SUBCUT (11:24)
[2022-12-30] MEDS: Dorzolamide/Timolo 2.23%/0.68% 10 ML DRBTL 1 DROP EYE-LEFT ×2 (11:25→22:13)
--- NOTE | 2022-12-30 14:18 | MHC.CM.PN ---
Met with pt to discuss d/c planning needs: pt resides alone, has no services or DME and is independent w/all care needs. Dtr / HCP can transport to home when ready. HCP on file, IMM in chart: Vax / boosted UTD. CM to follow for any changes in d/c plan.
--- NOTE | 2022-12-30 15:32 | HO.POSTANES ---
Post Anesthesia Evaluation Post Anesthesia Evaluation Vital Signs: Vital Signs Temp Pulse Resp BP Pulse Ox O2 Del Method 12/30/22 11:06 95 Room Air 12/30/22 12:00 72 15 113/52 L 12/30/22 11:00 65 14 135/71 96 Room Air 12/30/22 10:00 67 14 124/42 L 95 Room Air 12/30/22 09:00 72 17 117/43 L 94 Room Air 12/30/22 08:00 59 22 H 110/41 L 94 Room Air 12/30/22 07:00 70 18 120/53 L 97 Room Air 12/30/22 06:00 54 16 107/40 L 96 Room Air 12/30/22 05:00 98 F 56 14 117/47 L 96 Room Air 12/30/22 04:00 66 16 123/51 L 94 Room Air Anesthesia: General Endotracheal-GETA Mental Status: Awake Pain Control: Satisfactory Nausea/Vomiting: None Hydration: Adequate Anesthesia-Related Issues: No Anes. Related Issues
[2022-12-30] MEDS: Tamsulosin HCL 0.4 MG CAPSULE PO (20:42)
[2022-12-30] MEDS: traZODone HCL 100 MG TABLET PO (20:42)
[2022-12-30] MEDS: Latanoprost 0.005 % Ophth Sol 2.5 ML DROPS 1 DROP EYE-BOTH (22:13)
[2022-12-31] VITALS (8 sets, daily range): BP systolic 97–145; BP diastolic 52–70; PULSE 76–97; RESP 18–20; TEMP 34.4–37.3; O2SAT 92–95
[2022-12-31] MEDS: Heparin Sodium,Porcine 5,000 UNIT/ML VIAL 5000 UNIT SUBCUT ×3 (00:35→17:39)
[2022-12-31] MEDS: Aspirin Enteric Coated 81 MG TABLET.DR PO (08:11)
[2022-12-31] MEDS: 0.9 % Sodium Chloride Flush 3 ML SYRINGE IVFLUSH ×2 (08:11→21:12)
[2022-12-31] MEDS: Dorzolamide/Timolo 2.23%/0.68% 10 ML DRBTL 1 DROP EYE-LEFT ×2 (08:11→21:08)
[2022-12-31] MEDS: Omeprazole 20 MG CAPSULE.DR PO (08:11)
--- NOTE | 2022-12-31 10:47 | HO.VASCPN ---
Subjective Subjective Date of Service: 12/31/22 Patient reports: no new complaints and feels better Interval history: Patient seen and examined. No significant events overnight. Doing well on a floor bed. Still some pain and discomfort on the left leg. He does feel a little unsteady. He is now for postoperative follow-up. Physical Exam Vital Signs: Vital Signs: Last Vital Signs Temp 94 F L 12/31/22 07:46 Pulse 97 12/31/22 07:46 Resp 18 12/31/22 07:46 BP 115/59 L 12/31/22 07:46 Pulse Ox 92 12/31/22 07:46 O2 Del Method Room Air 12/31/22 04:00 O2 Flow Rate 2 12/29/22 19:00 BMI result Body Mass Index 27.7 Const: General: cooperative, healthy appearing and no acute distress Orientation/consciousness: oriented to person, oriented to place and oriented to time HEENT: Head: Yes normal to inspection Neck: Carotids: no bruits Chest: Chest palpation & inspection: normal inspection of the chest Resp: Effort & Inspection: normal respiratory effort and able to speak in complete sentences Auscultation: clear to auscultation bilaterally Cardio: Other: Left side palpable DP Rate: regular rate Heart sounds: S1 normal heart sound present and S2 normal heart sound present GI: Inspection: Yes normal to inspection Skin: General skin exam: no rashes or lesions noted Wounds: no wounds Neuro: General: oriented to person, oriented to place, oriented to time and CN's II-XI intact bilaterally Extrem: General: Yes normal to inspection, Yes full ROM and Yes no clubbing, cyanosis or edema Psych: Appearance: grossly normal and well kempt Speech and movement: Normal speech and movement present Affect: normal affect Progress Note: A&P Assessment and plan (1) S/P femoral-popliteal bypass surgery: Status: Acute Assessment and Plan: In short patient is doing extremely well status post fem-pop bypass. We will get him out of bed to chair today. In addition we will have Physical therapy assess. Should he be stable and have enough strength would anticipate discharge tomorrow. Time Spent With Patient Time: Total time managing care of this patient today ____ minutes. Procedures Date of Service Date of Service: 12/31/22 Quality Stroke Does the patient have a stroke diagnosis?: No VTE Prior VTE?: No VTE Risk Level:: Surgical - moderate VTE Device Contraindication: N/A - Device Ordered VTE Drug Contraindication: N/A - Med Ordered
[2022-12-31] MEDS: oxyCODONE HCl Immed Release 5 MG TABLET PO ×2 (13:05→21:05)
[2022-12-31] MEDS: Acetaminophen 325 MG TABLET 650 MG PO (13:06)
--- NOTE | 2022-12-31 13:47 | MHC.CM.PN ---
EMR REVIEWED. P.T. IS RECOMMENDING ACUTE REHAB. REFERRALS SENT AND AWAITING RESPONSES.
[2022-12-31] MEDS: traZODone HCL 100 MG TABLET PO (21:05)
[2022-12-31] MEDS: Tamsulosin HCL 0.4 MG CAPSULE PO (21:06)
[2022-12-31] MEDS: Latanoprost 0.005 % Ophth Sol 2.5 ML DROPS 1 DROP EYE-BOTH (21:07)
[2023-01-01] MEDS: Heparin Sodium,Porcine 5,000 UNIT/ML VIAL 5000 UNIT SUBCUT ×2 (02:39→08:06)
[2023-01-01 04:00] VITALS: BP 111/58; PULSE 82; RESP 20; TEMP 37.2; O2SAT 98
[2023-01-01 07:38] VITALS: BP 100/57; PULSE 85; RESP 20; TEMP 37.1; O2SAT 92
[2023-01-01] MEDS: Acetaminophen 325 MG TABLET 650 MG PO (07:57)
[2023-01-01] MEDS: Omeprazole 20 MG CAPSULE.DR PO (07:59)
[2023-01-01] MEDS: 0.9 % Sodium Chloride Flush 3 ML SYRINGE IVFLUSH (07:59)
[2023-01-01] MEDS: Aspirin Enteric Coated 81 MG TABLET.DR PO (07:59)
[2023-01-01] MEDS: Dorzolamide/Timolo 2.23%/0.68% 10 ML DRBTL 1 DROP EYE-LEFT (08:06)
--- NOTE | 2023-01-01 08:28 | MHC.CM.PN ---
Addendum entered by Chelsea Razo 01/01/23 12:57: CM RECEIVED A MESSAGE FROM [facility] WHO IS ALSO OFFERING A BED, HOWEVER AFTER DISCUSSION WITH PT, [facility] IS PREFERRED FACILITY Original Note: CM RECEIVED A MESSAGE FROM PTS DAUGHTER/HCP, NEO REQUESTING A RETURN CALL AT HER WORK NUMBER [phone] TO DISCUSS PTS DC PLAN. EWELINA CALLED NEO AND INFORMED HER ACUTE REHAB HAS BEEN RECOMMENDED AND AT THIS TIME [facility] IS OFFERING A BED SHE IS AWARE PT MAY DC TODAY AND HOPES THAT HE CAN BE TRANSFERRED EARLIER IN THE DAY SO THAT SHE CAN GO STRAIGHT TO [facility] AFTER LEAVING WORK IN [place]. EWELINA INFORMED HER AN ATTEMPT WOULD BE MADE TO DC PT BY 1300 HOURS HOWEVER THIS MAY CHANGE PENDING MD UPDATES. EWELINA WILL CALL HER BACK IF PLAN CHANGES/PT IS NOT DC TODAY.
[2023-01-01 11:00] VITALS: O2SAT 92
[2023-01-01 11:40] VITALS: BP 99/54; PULSE 81; RESP 20; TEMP 36.8; O2SAT 93
--- NOTE | 2023-01-01 12:32 | PM.DS ---
DS: Providers Provider Date of Service: 01/01/23 Date of admission: 12/29/22 06:07 Primary care physician: Bobby Deleon MD DS: Diagnosis Discharge Diagnosis (1) S/P femoral-popliteal bypass surgery: Status: Acute DS: Summary Hospital Course Hospital Course: Pt. underwent fem-pop. Was observed in ICU for one night. Doing much better on floor. Some weakness. Was seen by PT and now for transfer to be rehab. Has palp DP Time Spent with Patient Time attestation: Total time managing care of this patient today ____ minutes. Discharge coordination time: Greater than 30 minutes Quality: Safe Use of Opioids Does Pt have an Active Cancer Diagnosis on the Problem List?: No Quality: Stroke Does the patient have a stroke diagnosis?: No Physical Exam Vital Signs: Vital Signs: Last Vital Signs Temp 98.3 F 01/01/23 11:40 Pulse 81 01/01/23 11:40 Resp 20 01/01/23 11:40 BP 99/54 L 01/01/23 11:40 Pulse Ox 93 01/01/23 11:40 O2 Del Method Room Air 01/01/23 11:40 O2 Flow Rate 2 12/29/22 19:00 BMI result Body Mass Index 27.7 Const: General: cooperative, healthy appearing and no acute distress Orientation/consciousness: oriented to person, oriented to place and oriented to time HEENT: Head: Yes normal to inspection Neck: Carotids: no bruits Chest: Chest palpation & inspection: normal inspection of the chest Resp: Effort & Inspection: normal respiratory effort and able to speak in complete sentences Auscultation: clear to auscultation bilaterally Cardio: Rate: regular rate Heart sounds: S1 normal heart sound present and S2 normal heart sound present GI: Inspection: Yes normal to inspection Skin: Other: incision well healed General skin exam: no rashes or lesions noted Wounds: no wounds Neuro: General: oriented to person, oriented to place, oriented to time and CN's II-XI intact bilaterally Extrem: General: Yes normal to inspection, Yes full ROM and Yes no clubbing, cyanosis or edema Psych: Appearance: grossly normal and well kempt Speech and movement: Normal speech and movement present Affect: normal affect DS: Data Data Completed and Pending Completed studies during hospitalization [Text1]: Pending at discharge 12/29/22 09:55 Surgical [PTH] Routine Discharge Plan Discharge Anticipated Discharge Date/Time: 01/01/23 12:27 Patient Disposition: Xfer Inpatient Rehab Fac Discharge Diagnosis: s/p fem pop bypass Referrals: Bobby Deleon MD [Primary Care Provider] - 1 Week Discharge Medications: New oxycodone-acetaminophen [Percocet] 5-325 mg tablet 1 tab PO Q8H PRN (Reason: pain) Qty: 10 0RF Rx Instructions: Partial Fill upon patient request. Continued latanoprost 0.005 % drops 1 drp ophthalmic (eye) BEDTIME Patient Comments: one drop each eye at bedtime dorzolamide-timolol 22.3-6.8 mg/mL Drops 1 drp ophthalmic-Left BID tamsulosin 0.4 mg capsule 0.4 mg PO QPM trazodone 100 mg tablet 100 mg PO BEDTIME omeprazole 20 mg capsule,delayed release(DR/EC) 20 mg PO DAILY Patient Comments: not taken daily, usually only every 3-4 days Discharge Orders: Discharge Order (Routine); Ordered 01/01/23 Ordered By: Adria Albrecht Diet: Advance to usual diet Activity on Discharge: As tolerated Stand Alone Forms: Patient Portal Discharge page Activity Restrictions/Additional Instructions: Cover incisions with dry dressings may shower as needed Full weight bearing Care Plan Goals: Walk better Health Concerns: PAD Plan of Treatment: surveilence f/u Assessment: s/ fem pop bvpass
[2023-01-01 12:58] LABS: COVID-19 Test Negative (Negative); IDNOW Serial# 08D9AD1C
--- NOTE | 2023-01-01 13:04 | PC.NURSE ---
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 Surgical site dressings intact. Pt due for discharge today, report called to receiving facility. Pt updated on plan. Safety precautions remain in place, call hernandez within reach.
== END 2023-01-01 15:27 | DRG 254 ==
LOC: HO.SSSA 06:14 → HO.ICU 10:39 → HO.IMC 12-30 13:38
PROVIDERS: Nurse Practitioner; Admitting Provider Surgery Vascular Surgery; PCP Internal Medicine; Visit Provider Surgery Vascular Surgery
PROC: 041L0ZL Bypass Left Femoral Artery to Popliteal Artery, Open Approach (ICD-10-PCS; principal; 2022-12-29 07:30)
DX: I70.212 Atherosclerosis of native arteries of extremities with intermittent claudication, left leg (principal); N40.0 Benign prostatic hyperplasia without lower urinary tract symptoms; J44.9 Chronic obstructive pulmonary disease, unspecified; K21.9 Gastro-esophageal reflux disease without esophagitis; F17.210 Nicotine dependence, cigarettes, uncomplicated; Z20.822 Contact with and (suspected) exposure to COVID-19; Z71.6 Tobacco abuse counseling; Z79.899 Other long term (current) drug therapy
CPT/HCPCS: 36415; 80048; 85025; 85027; 85610; 85730; 86850; 86900; 86901; 87635; 88304; 88311; 97162; C1758; C1768; J0690; J1100; J1170; J1643; J2250; J2270; J2370; J2405; J2795; J3010

== ENCOUNTER → 2023-01-13 09:56 | Outpatient (BNVA) | payer BC, SELFPAY | PROVIDERS: PCP Internal Medicine; Visit Provider Surgery Vascular Surgery | DX: I73.9 Peripheral vascular disease, unspecified (principal); Z95.828 Presence of other vascular implants and grafts | CPT/HCPCS: 99212 ==

== ENCOUNTER 2023-02-13 13:18 | Outpatient (REF) | payer BC, SELFPAY ==
--- NOTE | ~2023-02-13 | US_ITS ---
EXAMINATION: ARTERIAL DUPLEX BILATERAL LEGS CLINICAL INFORMATION: Peripheral vascular disease. COMPARISON: 07/25/2022. TECHNIQUE: Duplex Doppler of the bilateral lower extremity arterial systems was performed. FINDINGS: RIGHT: Common femoral: PSV 136 cm/s. Triphasic waveform. Deep femoral: PSV 129 cm/s. Triphasic waveform. Proximal superficial femoral: PSV 88 cm/s. Triphasic waveform. Mid superficial femoral: PSV 112 cm/s. Triphasic waveform. Distal superficial femoral: PSV 86 cm/s. Triphasic waveform. Popliteal: PSV 79 cm/s. Biphasic waveform. Posterior tibial: PSV 105 cm/s. Triphasic waveform. Peroneal: PSV 67 cm/s. Triphasic waveform. LEFT: Common femoral: PSV 119 cm/s. High flow monophasic waveform. Deep femoral: PSV 42 cm/s. Triphasic waveform. Proximal superficial femoral: Occluded. Mid superficial femoral: Occluded. Distal superficial femoral: Occluded. Femoral graft inflow: PSV 119 cm/s. Monophasic waveform. Proximal anastomosis: PSV 51 cm/s. Monophasic waveform. Proximal graft: Occluded. Mid graft: Occluded. Distal graft: Occluded. Distal anastomosis: Occluded. Popliteal: PSV 38 cm/s. Monophasic waveform. Posterior tibial: PSV 32 cm/s. Monophasic waveform. Peroneal: PSV 28 cm/s. Monophasic waveform. There is a 2.9 x 1.7 x 2.2 cm fluid collection with internal debris in the left groin. There is no internal Doppler flow. US/US arterial duplex LE BI IMPRESSION: Occluded left [place] superficial femoral artery. Occluded left femoral bypass graft. 2.9 cm avascular mildly complex fluid collection in the left groin. This may be a seroma, resolving hematoma, or resolving thrombosed pseudoaneurysm. No evidence of patent pseudoaneurysm. The technologist called the results to Mouna in Dr. Albrecht's office at [phone] 02/13/2023. We were advised not to perform ankle-brachial indices.
== END 2023-02-13 13:19 | disposition home or self-care (01) ==
LOC: HO.US 13:18
PROVIDERS: PCP Internal Medicine; Visit Provider Surgery Vascular Surgery
DX: I70.213 Atherosclerosis of native arteries of extremities with intermittent claudication, bilateral legs (principal)
CPT/HCPCS: 93925

== ENCOUNTER → 2023-02-16 10:22 | Outpatient (BNVA) | payer MEDICARE, BC, SELFPAY | PROVIDERS: PCP Internal Medicine; Visit Provider Surgery Vascular Surgery | DX: I73.9 Peripheral vascular disease, unspecified (principal) | CPT/HCPCS: 99212 ==

== ENCOUNTER 2023-02-17 11:01 | Inpatient (IN) | payer MEDICARE, BC, SELFPAY ==
[2023-02-17] VITALS (17 sets, daily range): BP systolic 111–147; BP diastolic 53–99; PULSE 55–91; RESP 13–23; TEMP 36.6–37.4; O2SAT 92–99; BMI 25.6; BMI 26.9
--- OUTSIDE RECORDS SUMMARY | 2023-02-17 06:08 | XMS_ITS ---
Author Name Levon Cabrera Jr Address [address] [place] [address] Organization [facility] Address [address] [place] [address] Care Team Providers Care Shipping Track Supervisor Name Role Phone Levon Cabrera Jr Unavailable [phone] PROBLEMS Type Condition ICD9-CM Code [id number] Code Onset Dates Condition Status SNOMED Code Problem Encounter for other preprocedural examination Z01.818 Active 518039994 Problem Colon cancer screening Z12.11 Active [id number] ALLERGIES No Known Allergies ENCOUNTERS Encounter Location Date Diagnosis [facility] [address] [place] [address] [id number] May, Colon cancer screening Z12.11 and Internal hemorrhoids K64.8 [facility] [address] [place] [id number] Apr, [facility] [address] [place] [id number] Apr, Colon cancer screening Z12.11 and Encounter [...] [employer] [place] [address] [facility] [address] [employer] [place] self GERARDO OROZCO [id number]
[2023-02-17] MEDS: 0.9 % Sodium Chloride 1,000 ML 100 ML IVCONT ×2 (06:38→16:26)
[2023-02-17 06:45] LABS: MANUAL DIFF FLAG NO
[2023-02-17 06:47] LABS: Basophils Percent Auto 0.5 % (0-2); Eosinophils Absolute Auto 0.2 X10*3/uL (0.0-0.4); Eosinophils Percent Auto 3.9 % (0-4); Hematocrit 38.9 % (42.0-52.0); Hemoglobin 12.7 g/dl (14.0-18.0); Imm Gran Abs Auto 0.02 X10*3/uL (0.00-0.03); Imm Gran Pct Auto 0.3 % (0.0-0.4); Lymphocytes Absolute Auto 0.9 X10*3/uL (1.2-4.9); Lymphocytes Percent Auto 15.9 % (20-40); Mean Corpuscular HGB Conc 32.6 g/dl (31.0-36.0); Mean Corpuscular Hemoglobin 29.7 pg (27.0-33.0); Mean Corpuscular Volume 91.1 fL (80.0-98.0); Mean Platelet Volume 8.5 fL (9.4-12.4); Monocytes Absolute Auto 0.5 X10*3/uL (0.1-1.2); Monocytes Percent Auto 8.5 % (2-11); Neutrophils Absolute Auto 4.2 x10*3/uL (2.0-8.3); Neutrophils Percent Auto 70.9 % (45-73); Platelet Count 179 X10*3/uL (160-400); Red Blood Count 4.27 X10*6/uL (4.60-5.80); Red Cell Distribution Width 14.2 % (11.0-16.0); White Blood Count 5.9 X10*3/uL (4.8-10.8)
[2023-02-17 06:54] LABS: Prothrombin Time 11.4 SEC (10.0-13.1)
[2023-02-17 06:56] LABS: Partial Thromboplastin Time 32.6 SEC (26.0-36.4)
[2023-02-17 07:14] LABS: Anion Gap 13 (12-20); Blood Urea Nitrogen 27 mg/dL (9-16); Calcium 9.3 mg/dL (8.4-10.2); Carbon Dioxide 27 mmol/L (22-29); Chloride 105 mmol/L (96-108); Creatinine Clr Calc Pharmacy 51.3; Estimated Glomerular Filt Rate 46; Glucose Random 100 mg/dL (60-115); Potassium 4.5 mmol/L (3.3-5.1); Sodium 140 mmol/L (135-145)
[2023-02-17] MEDS: Lidocaine HCl 1 % 20 ML VIAL 10 ML SUBCUT (08:59)
[2023-02-17] MEDS: Alteplase Cath Clear 5 MG in 0.9 % Sodium Chloride 495 ML 50 MG INTRAPLEUR ×2 (09:00→17:41)
[2023-02-17] MEDS: Heparin Sodium,Porcine/1/2NS 25,000 UNIT/250 ML IV.SOLN 5 UNIT INTRAARTCO (09:00)
--- NOTE | 2023-02-17 09:48 | W.PM.OPN ---
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 Ultrasound-guided right common femoral access 2. Aortogram with left lower extremity runoff 3. Insertion of thrombolysis catheter Surgeon:Adria Albrecht M.D., FACS, RPVI Head Athletic Trainer:None Anesthesia: Local with moderate conscious sedation. Total intraservice moderate sedation time was 61 minutes. I monitored the patient's level of consciousness and physiologic status continuously throughout the procedure. Specimens:none Drains:none Estimated blood loss: Less than 10 ml Implant: none Indications: 72-year-old gentleman with prior history of left lower extremity fem-pop bypass. The patient has signed the informed consent after reviewing risks, complications, benefits, and alternatives previously discussed with the patient. The patient was given the opportunity to ask any additional questions or voice any concerns. All questions were answered to the patient's satisfaction. Procedure in detail: Patient was brought to the angiography suite prior to which a time-out was called for patient identification and site verification. Bilateral groins were prepped and draped in the standard surgical fashion. Under ultrasound guidance right common femoral was punctured with micro puncture needle and wire. Subsequently a precision 4 Angolan sheath was then placed. KLab wire was advanced to the level of the aorta. 4 Angolan Flush catheter was brought up and parked at the level of the renal arteries. Aortogram was then undertaken. Catheter was brought down to the level of the iliac bifurcation. Iliacs were subsequently imaged. Catheter was then brought in up and over to the left side SFA. Runoff study was then undertaken. They occluded fem-pop bypass was identified. We were able to advance an 035 glidewire Advantage across this. Once across we administered 3000 units of systemic heparin. We then placed a short 6 Angolan sheath. We were able to traverse the entire length of the graft with a sizing catheter. We did confirmed true lumen entry. Once this was across we E advanced a up and over 6 Angolan Balkin catheter. We then inserted a Mainstream EnergyNamara 50 cm multi side-hole catheter. We confirmed appropriate positioning. Once this was in appropriate position through these side sheath we administered heparin and 500 units an hour and through the main catheter tPA was being infused at 0.5 mg per hour. Sterile dressing was applied. Patient tolerated the procedure well Interpretation of films: 1. Ultrasound demonstrates appropriate femoral puncture. Image of which was saved. 2. Aortogram demonstrates appropriate caliber aorta. Minimal disease. Appropriate take-off of the renals. 3. Iliac images demonstrate no significant disease some mild tortuosity 4. Left Leg Common femoral artery: No significant disease Profundus Femoris: No significant disease Fem-pop bypass was occluded Popliteal did reconstitute Conclusion: 1. Successful placement of thrombolysis catheter 2. Anticoagulation status: No change for [place] follow-up tomorrow This note is constructed using voice recognition software. While every effort has been made to ensure accuracy, horticultural specialty grower inside errors may have been included. Thank you for allowing me to participate in the care of your patient. Yours sincerely, Adria Albrecht MD, FACS, R.P.V.I.
--- OUTSIDE RECORDS SUMMARY | 2023-02-17 11:03 | XMS_ITS ---
Author Name Levon Cabrera Jr Address [address] [place] [id number] Organization [facility] Address [address] [place] [address] Care Team Providers Care Glazier Apprentice Name Role Phone Levon Cabrera Jr Unavailable PROBLEMS ALLERGIES No Known Allergies ENCOUNTERS IMMUNIZATIONS No Known Immunizations SOCIAL HISTORY REASON FOR REFERRAL FUNCTIONAL STATUS PLAN OF CARE VITAL SIGNS MEDICATIONS PROCEDURES RESULTS No Results REASON FOR VISIT Insurance Providers
[2023-02-17 13:23] LABS: Fibrinogen 609 MG/DL (259-690)
--- NOTE | 2023-02-17 14:42 | PC.NURSE ---
Admit received from PACU at approx noon to 259. Patient alert and oriented. Denies pain. Issues initially with heparin drip running into right fem catheter. Dr Albrecht came to bedside at approx 1240 and flushed line. Heparin & TPA running without issue. pulses confirmed via doppler. Vitals stable. Denies pain or tingling to lower extremities. Right groin dressing reinforced from PACU. Plan to keep heparin & alteplase drip running for 24 hours (started at approx 0900). Then go back for procedure with Dr albrecht tomorrow morning at approx 0900. Tolerated diet for lunch. [address] Albrecht.
--- NOTE | 2023-02-17 14:43 | P.HPCC_ITS ---
History of Present Illness Date of Service: 02/17/23 Chief Complaint: Status post placement of thrombolysis catheters for occluded left fem-pop 72-year-old gentleman with underlying history of COPD, hypertension, BPH, pet, status post left fem-pop bypass on 12/29/2022, now postop day 0 after an elective placement of thrombolysis catheters for occluded left fem-pop with thrombolytics running, being monitored in the intensive care unit. Review of Systems Constitutional: Constitutional: Denies daytime sleepiness, Denies excessive sweating, Denies fatigue, Denies fever(s), Denies lethargy, Denies malaise, Denies night sweats, Denies snoring and Denies weight loss Eyes: Eyes: Denies blurry vision ENT: Denies nasal congestion, Denies post nasal drip, Denies sinus pain, Denies sinus pressure and Denies other ( Thrush) Cardiovascular: Cardiovascular: Denies chest pain, Denies pedal edema, Denies dyspnea, Denies orthopnea and Denies paroxysmal nocturnal dyspnea Respiratory: Respiratory: Denies cough, Denies hemoptysis, Denies excessive phlegm production, Denies dyspnea and Denies snoring Gastrointestinal: Gastrointestinal: Denies abdominal pain and Denies heartburn Integumentary/Breasts: Skin/Breast: Denies rash Neurologic: Denies memory loss and Denies seizure-like activity Psychiatric: Psychiatric: Denies abnormal sleep pattern, Denies anxiety and Denies memory loss Endocrine: Endocrine: Denies excessive sweating, Denies fatigue and Denies heat intolerance Hematologic/Lymphatic: Hematologic/Lymphatic: Denies easy bruising PMFSH Past Medical History Medical History BPH (benign prostatic hyperplasia) COPD (chronic obstructive pulmonary disease) GERD (gastroesophageal reflux disease) Glaucoma History of femoral angiogram Surgical History Surgical History History of back surgery Hx of bilateral hip replacements Hx of colonoscopy Hx of knee surgery Hx of total knee replacement Status post right rotator cuff repair Social History Social History Household Members: None Housing: Condominium Are you a primary healthcare representative to a significant other at home: No Do you presently have visiting nurse or other home services: No Patient Tobacco Use Status: Former Tobacco user Tobacco use type: Cigarette Cigarettes Per Day: 4 Years Smoked: 50 Second Hand Smoke Exposure: No Use of substances other than those prescribed or required for medical reasons: No Have you been hit, kicked, punched, or otherwise hurt by someone within the past year? If so, by whom?: No Do you feel safe in your current relationship?: No Current Relationship Is there a partner from a previous relationship who is making you feel unsafe now?: No Are you made to feel afraid or neglected: No Spiritual Healthcare Practices: NO ISSUES Latter Day Healthcare Practices: NO ISSUES Cultural Healthcare Practices: NO ISSUES Advance Directives: No Advance Directives Information Provided: Yes Do you have thoughts of harming others: None Do you have a plan to hurt others: No Plan Recently lost weight without trying: No Nutrition Risks: No Nutritional Risk Poor oral hygiene: No service: No Current occupational status: unemployed Meds Allergies Allergy/AdvReac Type Severity Reaction Status Date / Time No Known Allergies Allergy Verified 02/16/23 10:32 Active Medications: Current Medications Acetaminophen (Acetaminophen 325 Mg Tablet) 650 mg PO Q6H PRN PRN Reason: Pain, Mild (Pain Scale 1-3) Sodium Chloride (Ns) 1,000 mls @ 100 mls/hr IVCONT .Q10H [facility] Last Admin: 02/17/23 06:38 Dose: 100 mls/hr Alteplase, Recombinant 5 mg/ (Sodium Chloride) 500 mls @ 50 mls/hr INTRAPLEUR .Q10H [facility] Stop: 02/18/23 09:00 Last Admin: 02/17/23 09:00 Dose: 0.5 mg/hr, 50 mls/hr Heparin Sodium/Sodium Chloride (Heparin Sodium,Porcine/1/2ns) 25,000 unit in 250 mls @ 5 mls/hr INTRAARTCO .Q24H [facility] Last Admin: 02/17/23 09:00 Dose: 500 unit/hr, 5 mls/hr Morphine Sulfate (Morphine Sulfate 2 Mg/Ml Cartridge) 2 mg IVPUSH Q4H PRN; Protocol PRN Reason: Pain, Severe (Pain Scale 7-10) Oxycodone HCl (Oxycodone Hcl Immed Release 5 Mg Tablet) 5 mg PO Q4H PRN PRN Reason: Pain, Moderate(Pain Scale 4-6) Sodium Chloride (0.9 % Sodium Chloride Flush 3 Ml Syringe) [facility] Medications Medication Instructions Recorded Confirmed Last Taken Type omeprazole 20 mg capsule,delayed 20 mg PO DAILY 10/07/22 02/17/23 10/28/22 History release tamsulosin 0.4 mg capsule 0.4 mg PO QPM 10/07/22 02/17/23 10/28/22 History trazodone 100 mg tablet 100 mg PO BEDTIME 10/07/22 02/17/23 10/28/22 History dorzolamide 22.3 mg-timolol 6.8 1 drp ophthalmic-Left BID 12/22/22 02/17/23 Unknown History mg/mL eye drops latanoprost 0.005 % eye drops 1 drp ophthalmic (eye) BEDTIME 12/22/22 02/17/23 Unknown History Physical Exam Vital Signs: Vital Signs: Last Vital Signs Temp 98.3 F 02/17/23 11:20 Pulse 55 02/17/23 14:00 Resp 13 02/17/23 14:00 BP 111/59 L 02/17/23 14:00 Pulse Ox 93 02/17/23 14:00 O2 Del Method Room Air 02/17/23 14:00 BMI result Body Mass Index 25.6 Const: General: no acute distress and alert Nutritional Appearance: not obese Orientation/consciousness: Other orientation findings ( oriented) HEENT: Head: Yes atraumatic Eyes: General: appearance normal, both eyes and all related structures Sclerae: sclerae normal EOM: EOMs intact bilaterally Neck: Neck: Yes supple Lymphatic: no lymphadenopathy noted Resp: Effort & Inspection: normal respiratory effort and no use of accessory muscles Auscultation: clear to auscultation bilaterally Cardio: Rate: regular rate Rhythm: regular rhythm Heart sounds: no gall ops, no murmurs and no rubs GI: Palpation (GI): Soft to palpation and Other GI palpation findings present ( nontender) Skin: General skin exam: other ( warm) Rashes: no rashes Extrem: General: No clubbing, No cyanosis and Yes other ( Right femoral access site with no hematoma) Results Labs 02/17/23 06:36 02/17/23 06:36 Labs: Laboratory Results - last 24 hr 02/17/23 02/17/23 02/17/23 06:36 06:36 06:36 MCV 91.1 MCH 29.7 MCHC 32.6 RDW 14.2 Plt Count 179 D MPV 8.5 L Immature Gran % (Auto) 0.3 Neut % (Auto) 70.9 Lymph % (Auto) 15.9 L [place] % (Auto) 8.5 Eos % (Auto) 3.9 Baso % (Auto) 0.5 Lymph # (Auto) 0.9 L [place] # (Auto) 0.5 Eos # (Auto) 0.2 Baso # (Auto) 0.0 Abs Immat Gran (auto) 0.02 Absolute Neuts (auto) 4.2 Absolute Nucleated RBC 0.000 Nucleated RBC % (auto) 0.0 PT 11.4 INR 1.0 APTT 32.6 Fibrinogen Anion Gap 13 Estim Creat Clear Calc 51.3 Estimated GFR 46 Random Glucose 100 Calcium 9.3 D 02/17/23 13:10 MCV MCH MCHC RDW Plt Count MPV Immature Gran % (Auto) Neut % (Auto) Lymph % (Auto) [place] % (Auto) Eos % (Auto) Baso % (Auto) Lymph # (Auto) [place] # (Auto) Eos # (Auto) Baso # (Auto) Abs Immat Gran (auto) Absolute Neuts (auto) Absolute Nucleated RBC Nucleated RBC % (auto) PT INR APTT Fibrinogen 609 Anion Gap Estim Creat Clear Calc Estimated GFR Random Glucose Calcium Assessment and Plan (1) S/P femoral-popliteal bypass surgery: Status: Acute (2) PAD (peripheral artery disease): Status: Acute (3) COPD (chronic obstructive pulmonary disease): Status: Acute Plan Assessment: 72-year-old gentleman postop day 0 after an elective placement of thrombolysis catheters for occluded left fem-pop with tPA/heparin running Plan: Neuro: No acute issues. Cardiovascular: postop day 0 after an elective placement of thrombolysis catheters for occluded left fem-pop with tPA/heparin running. Vascular surgery service care appreciated. Planned for another angiogram in a.m.. Pulmonary: No acute issues. Renal: No acute issues. Endo: No acute issues. GI: No acute issues. ID: No acute issues Heme/Onc: No acute issues. Psych: No acute issues. Miscellaneous: No acute issues. Prophylaxis: Heparin Diet: per vascular surgery Time Spent With Patient Time: Total time managing care of this patient today ____ minutes.
[2023-02-17] MEDS: 0.9 % Sodium Chloride Flush 3 ML SYRINGE IVFLUSH (16:26)
[2023-02-17 17:26] LABS: Fibrinogen 606 MG/DL (259-690)
[2023-02-17 17:28] LABS: Partial Thromboplastin Time 31.4 SEC (26.0-36.4)
[2023-02-17] MEDS: Tamsulosin HCL 0.4 MG CAPSULE PO (20:48)
[2023-02-17] MEDS: traZODone HCL 100 MG TABLET PO (20:48)
[2023-02-18] VITALS (24 sets, daily range): BP systolic 104–148; BP diastolic 57–78; PULSE 71–96; RESP 13–26; TEMP 36.1–37.1; O2SAT 91–97; BMI 26.9; BMI 27.3
[2023-02-18] MEDS: 0.9 % Sodium Chloride 1,000 ML 100 ML IVCONT ×2 (01:46→17:26)
[2023-02-18] MEDS: Alteplase Cath Clear 5 MG in 0.9 % Sodium Chloride 495 ML 50 MG INTRAPLEUR (02:31)
[2023-02-18 05:02] LABS: VBG Base Excess 6.2 mmol/L; VBG HCO3 30 mmol/L (22-26); VBG pCO2 43 mmHg; VBG pH 7.45 (7.32-7.43); VBG pO2 52 mmHg
[2023-02-18 05:16] LABS: MANUAL DIFF FLAG NO
[2023-02-18 05:26] LABS: Basophils Percent Auto 0.3 % (0-2); Eosinophils Absolute Auto 0.1 X10*3/uL (0.0-0.4); Eosinophils Percent Auto 1.9 % (0-4); Hematocrit 36.1 % (42.0-52.0); Hemoglobin 11.7 g/dl (14.0-18.0); Imm Gran Abs Auto 0.02 X10*3/uL (0.00-0.03); Imm Gran Pct Auto 0.3 % (0.0-0.4); Lymphocytes Percent Auto 15.4 % (20-40); Mean Corpuscular HGB Conc 32.4 g/dl (31.0-36.0); Mean Corpuscular Hemoglobin 29.2 pg (27.0-33.0); Mean Platelet Volume 9.1 fL (9.4-12.4); Monocytes Absolute Auto 0.7 X10*3/uL (0.1-1.2); Monocytes Percent Auto 10.3 % (2-11); Neutrophils Absolute Auto 4.8 x10*3/uL (2.0-8.3); Neutrophils Percent Auto 71.8 % (45-73); Platelet Count 158 X10*3/uL (160-400); Red Blood Count 4.01 X10*6/uL (4.60-5.80); White Blood Count 6.7 X10*3/uL (4.8-10.8)
[2023-02-18 05:32] LABS: Prothrombin Time 11.7 SEC (10.0-13.1)
[2023-02-18 05:43] LABS: Albumin Level 3.2 g/dL (3.5-5.0); Anion Gap 11 (12-20); Blood Urea Nitrogen 17 mg/dL (9-16); Calcium 8.6 mg/dL (8.4-10.2); Carbon Dioxide 25 mmol/L (22-29); Chloride 109 mmol/L (96-108); Creatinine Clr Calc Pharmacy 64.3; Estimated Glomerular Filt Rate > 60; Glucose Random 96 mg/dL (60-115); Magnesium 1.7 mg/dL (1.6-2.6); Potassium 4.2 mmol/L (3.3-5.1); Sodium 141 mmol/L (135-145)
[2023-02-18 07:09] LABS: Venous Blood Gas Refer to POC result
--- NOTE | 2023-02-18 07:16 | PC.NURSE ---
Late Entry: Patient a&ox3 pupils uneven per baseline speech clear ate 100% pm meal. Angio cath remains in right fem dsg D&I. Altaplase and heparin infusing w/o diff. + palpable pulses to right leg and + Doppler pulses to left leg. Patient denies pain. Continue to monitor.
--- NOTE | 2023-02-18 09:54 | MHC.CM.PN ---
CM unable to meet with patient- returned to OR. Will attempt at later time.
--- NOTE | 2023-02-18 11:20 | PM.CCPN ---
Subjective Subjective Date of Service: 02/18/23 Interval History: 72-year-old gentleman with underlying history of COPD, hypertension, BPH, pet, status post left fem-pop bypass on 12/29/2022, now postop day 1 after an elective placement of thrombolysis catheters for occluded left fem-pop with thrombolytics running, being monitored in the intensive care unit. No events overnight. Critical Care Time (minutes): 0 Physical Exam Vital Signs: Vital Signs: Last Vital Signs Temp 97.3 F 02/18/23 07:00 Pulse 79 02/18/23 09:00 Resp 18 02/18/23 09:00 BP 129/78 02/18/23 09:00 Pulse Ox 93 02/18/23 09:00 O2 Del Method Room Air 02/18/23 11:00 BMI result Body Mass Index 26.9 Const: General: no acute distress, alert and awake Eyes: Sclerae: sclerae normal EOM: EOMs intact bilaterally Neck: Neck: Yes no lymphadenopathy, Yes trachea midline and Yes supple Resp: Effort & Inspection: normal respiratory effort and no respiratory distress Auscultation: clear to auscultation bilaterally Cardio: Rate: regular rate Rhythm: regular rhythm Heart sounds: no gallops, no murmurs and no rubs GI: Palpation (GI): Soft to palpation and Other GI palpation findings present ( Nontender) Auscultation: normal bowel sounds Extrem: General: No clubbing, No cyanosis and Yes other ( Right femoral access site without hematoma) Objective Data Labs 02/18/23 04:58 02/18/23 04:58 Labs: Laboratory Results - last 24 hr 02/17/23 02/17/23 02/18/23 13:10 16:56 04:54 WBC RBC Hgb Hct MCV MCH MCHC RDW Plt Count MPV Immature Gran % (Auto) Neut % (Auto) Lymph % (Auto) [place] % (Auto) Eos % (Auto) Baso % (Auto) Lymph # (Auto) [place] # (Auto) Eos # (Auto) Baso # (Auto) Abs Immat Gran (auto) Absolute Neuts (auto) Absolute Nucleated RBC Nucleated RBC % (auto) PT INR APTT 31.4 Fibrinogen 609 606 VBG pH 7.45 H VBG pCO2 43 VBG pO2 52 VBG HCO3 30 H VBG O2 Saturation 85.0 VBG Base Excess 6.2 Sodium Potassium Chloride Carbon Dioxide Anion Gap BUN Creatinine Estim Creat Clear Calc Estimated GFR Random Glucose Calcium Phosphorus Magnesium Albumin 02/18/23 02/18/23 02/18/23 04:58 04:58 04:58 WBC 6.7 RBC 4.01 L Hgb 11.7 L Hct 36.1 L MCV 90.0 MCH 29.2 MCHC 32.4 RDW 14.0 Plt Count 158 L MPV 9.1 L Immature Gran % (Auto) 0.3 Neut % (Auto) 71.8 Lymph % (Auto) 15.4 L [place] % (Auto) 10.3 Eos % (Auto) 1.9 Baso % (Auto) 0.3 Lymph # (Auto) 1.0 L [place] # (Auto) 0.7 Eos # (Auto) 0.1 Baso # (Auto) 0.0 Abs Immat Gran (auto) 0.02 Absolute Neuts (auto) 4.8 Absolute Nucleated RBC 0.000 Nucleated RBC % (auto) 0.0 PT 11.7 INR 1.0 APTT Fibrinogen VBG pH VBG pCO2 VBG pO2 VBG HCO3 VBG O2 Saturation VBG Base Excess Sodium 141 Potassium 4.2 Chloride 109 H Carbon Dioxide 25 Anion Gap 11 L BUN 17 H Creatinine 1.19 Estim Creat Clear Calc 64.3 Estimated GFR > 60 Random Glucose 96 Calcium 8.6 D Phosphorus 3.0 Magnesium 1.7 Albumin 3.2 L Progress Note: A&P Assessment and plan (1) S/P femoral-popliteal bypass surgery: Status: Acute (2) PAD (peripheral artery disease): Status: Acute (3) COPD (chronic obstructive pulmonary disease): Status: Acute Plan Assessment: 72-year-old gentleman postop day 1 after an elective placement of thrombolysis catheters for occluded left fem-pop with tPA/heparin running Plan: Neuro: No acute issues. Cardiovascular: postop day 1 after an elective placement of thrombolysis catheters for occluded left fem-pop with tPA/heparin running. Vascular surgery service care appreciated. Angiogram today. Pulmonary: No acute issues. Renal: No acute issues. Endo: No acute issues. GI: No acute issues. ID: No acute issues Heme/Onc: No acute issues. Psych: No acute issues. Miscellaneous: No acute issues. Prophylaxis: Heparin Diet: per vascular surgery Quality Stroke Does the patient have a stroke diagnosis?: No VTE Prior VTE?: No VTE Risk Level:: Medical - moderate - high VTE Device Contraindication: Treatment Not Indicated VTE Drug Contraindication: N/A - Med Ordered
--- NOTE | 2023-02-18 12:04 | P.OP_ITS ---
Operative Note Operative Note Date of Service: 02/18/23 Narrative: Angiogram report from [facility] Preoperative diagnosis: Atherosclerosis of left lower extremity with occluded fem-pop bypass Postoperative diagnosis: Same Procedure: 1. Thrombolysis angiogram follow-up imaging 2. Mechanical aspiration thrombectomy of common femoral and popliteal 3. Plasty of common femoral 4. Plasty of popliteal artery Surgeon:Adria Albrecht M.D., FACS, RPVI Executive Chef:None Anesthesia: Local with moderate conscious sedation. Total intraservice moderate sedation time was 95 minutes. I monitored the patient's level of consciousness and physiologic status continuously throughout the procedure. Specimens:none Drains:none Estimated blood loss: Less than 10 ml Implant: Medtronic Impact DCB 6 x 40 and 5 x 120 Indications: Very pleasant 72-year-old gentleman with a prior history of fem- pop bypass. It acutely occluded. Thrombolysis catheter was placed yesterday. He is now for follow-up. The patient has signed the informed consent after reviewing risks, complications, benefits, and alternatives previously discussed with the patient. The patient was given the opportunity to ask any additional questions or voice any concerns. All questions were answered to the patient's satisfaction. Please note this was an acute occlusion of the graft and he was an emergent procedure which required use of specialty quit Min inclusive of a Bard Aspirex catheter Procedure in detail: Patient was brought to the angiography suite prior to which a time-out was called for patient identification and site verification. Bilateral groins were prepped and draped in the standard surgical fashion. The right femoral Cr[place] Pepito catheter was removed over a 035 glidewire Advantage. Once this was accomplished we exchanged out the bulk in sheath for 6 [place]ian up [place] destination sheath. At this time 3000 units of systemic heparin was administered. Please note at 1/2 hour intervals an additional 1000 units of heparin was administered for a total of 5000 units of heparin given intraprocedure. Once this was accomplished we recognize there was residual thrombus at the proximal portion of the graft and distal near the popliteal anastomosis. We then exchanged out for a 018 wire. Over this we used a Bard aspiratex mechanical aspiration thrombectomy system. This was a 6 [place] system on I 135 shaft. We 1st addressed the more proximal thrombosis. We made multiple unidirectional passes approximately 4 cm in length. Multiple small bites were taken to remove the clot. In a similar fashion we turned our attention to the distal anastomosis. We did multiple unidirectional passes. With small bites to resolve clot. Once this was all accomplished completion angiogram demonstrated reasonable results. There was concern at the distal aspect of popliteal stenosis. We then turned our attention to the popliteal in to the distal graft. We plasty this with a 5 x 100 balloon. Subsequent to this we then plasty did this with a 5 x 120 drug coated balloon. This was brought into position in under 3 minutes and insufflated for a total of 3 minutes in duration. In a similar fashion we turned our attention more proximally to the proximal anastomosis which appeared to have thrombus in a stenosis as well. We plasty this area with a 6 x 20 balloon initially. We subsequently used a 6 x 40 drug coated balloon. This was brought into position in under 3 minutes and insufflated for a total of 3 minutes in duration. Once this was all accomplished completion angiogram demonstrated excellent result. We removed catheter wire. We brought the sheath back to the ipsilateral side. We did a angiogram that demonstrated appropriate puncture. StarClose closure device was deployed. Adequate hemostasis was achieved. Patient was then transferred to recovery with stable vitals. Interpretation of films: 1. Aortogram demonstrates appropriate caliber aorta. Minimal disease. Appropriate take-off of the renals. 2. Iliac images demonstrate no significant disease 4. Left Leg Common femoral artery: No significant disease Profundus Femoris: No significant disease Superficial femoral artery: [place] occluded; fem-pop bypass graft initially demonstrate proximal and distal thrombus with stenosis. Completion demonstrated excellent flow through the proximal and distal anastomosis. Popliteal artery (p1,p2,p3): Multiple moderate stenosis throughout the pop liteal Anterior tibial artery: No significant disease Peroneal artery: Occludes proximal 3rd Posterior tibial artery: No significant disease Dorsalis pedis/plantar arch: Incomplete Conclusion: 1. Successful thrombolysis and plasty of bypass graft. 2. Anticoagulation status: The patient will be placed on aspirin and Eliquis for long-term anticoagulation. This note is constructed using voice recognition software. While every effort has been made to ensure accuracy, environmental field technician errors may have been included. Thank you for allowing me to participate in the care of your patient. Yours sincerely, Adria Albrecht MD, FACS, R.P.V.I.
--- NOTE | 2023-02-18 12:38 | PC.NURSE ---
Pt's IV Heparin and IV Alteplase paused per Dr. Albrecht's request at 0905 and 0900 respectively. Pt's catheter and dressing over it CDI. Pt brought down to the IR at approximately 0930 with NS infusing at 100cc/hr. Pt recovering in PACU and plan to downgrade to Med Surg after. Daughter called and updated.
[2023-02-18] MEDS: Heparin Sodium,Porcine/1/2NS 25,000 UNIT/250 ML IV.SOLN 10 UNIT IVCONT (12:47)
[2023-02-18 14:57] LABS: PTT Heparin Drip 86.5 SEC (53-77.9)
--- NOTE | 2023-02-18 19:59 | PC.NURSE ---
pedal pulses palpable bilaterally
--- NOTE | 2023-02-18 21:07 | PC.NURSE ---
right groin demabond drsg CDI,no redness,no swelling,no bleeding noted
[2023-02-18] MEDS: traZODone HCL 100 MG TABLET PO (21:13)
[2023-02-18] MEDS: Tamsulosin HCL 0.4 MG CAPSULE PO (21:13)
[2023-02-19] VITALS (9 sets, daily range): BP systolic 92–139; BP diastolic 49–68; PULSE 65–102; RESP 16–20; TEMP 36–37.2; O2SAT 92–96; BMI 22.1
[2023-02-19 01:25] LABS: PTT Heparin Drip 85.6 SEC (53-77.9)
[2023-02-19] MEDS: 0.9 % Sodium Chloride 1,000 ML 100 ML IVCONT (05:13)
[2023-02-19 08:06] LABS: MANUAL DIFF FLAG NO
[2023-02-19 08:09] LABS: Basophils Percent Auto 0.5 % (0-2); Eosinophils Absolute Auto 0.1 X10*3/uL (0.0-0.4); Eosinophils Percent Auto 2.2 % (0-4); Hematocrit 28.8 % (42.0-52.0); Hemoglobin 9.5 g/dl (14.0-18.0); Imm Gran Abs Auto 0.02 X10*3/uL (0.00-0.03); Imm Gran Pct Auto 0.3 % (0.0-0.4); Lymphocytes Percent Auto 16.8 % (20-40); Mean Corpuscular Hemoglobin 30.1 pg (27.0-33.0); Mean Corpuscular Volume 91.1 fL (80.0-98.0); Monocytes Absolute Auto 0.6 X10*3/uL (0.1-1.2); Monocytes Percent Auto 10.8 % (2-11); Neutrophils Absolute Auto 4.1 x10*3/uL (2.0-8.3); Neutrophils Percent Auto 69.4 % (45-73); Platelet Count 157 X10*3/uL (160-400); Red Blood Count 3.16 X10*6/uL (4.60-5.80); Red Cell Distribution Width 14.1 % (11.0-16.0); White Blood Count 5.9 X10*3/uL (4.8-10.8)
[2023-02-19 08:37] LABS: Albumin Level 2.9 g/dL (3.5-5.0); Anion Gap 9 (12-20); Blood Urea Nitrogen 16 mg/dL (9-16); Calcium 8.4 mg/dL (8.4-10.2); Carbon Dioxide 28 mmol/L (22-29); Chloride 107 mmol/L (96-108); Estimated Glomerular Filt Rate 54; Glucose Random 106 mg/dL (60-115); Magnesium 1.7 mg/dL (1.6-2.6); Phosphorus 3.3 mg/dL (2.7-4.5); Potassium 4.2 mmol/L (3.3-5.1); Sodium 140 mmol/L (135-145)
[2023-02-19] MEDS: oxyCODONE HCl Immed Release 5 MG TABLET PO ×2 (08:55→18:28)
--- NOTE | 2023-02-19 09:34 | MHC.CM.PN ---
Addendum entered by Jasmin Ferguson 02/19/23 09:42: +HCP ON FILE AND VERIFIED Original Note: [facility] DELIVERED PT LIVES ALONE IN A [facility]. INDEPENDENT AT BASELINE. +HCP, COPY REQUESTED + COVID VAX X3 PCP DR. DIAZ DP: HOME, NO SERVICES ANTICIPATED. DAUGHTER WILL TRANSPORT AT DC. CM WILL CONTINUE TO FOLLOW FOR ANY CHANGE IN PLAN
[2023-02-19] MEDS: Morphine Sulfate 4 MG/ML CARTRIDGE IVPUSH ×2 (10:59→16:43)
--- NOTE | 2023-02-19 11:03 | HO.VASCPN ---
Subjective Subjective Date of Service: 02/19/23 Patient reports: no new complaints and feels better Interval history: Patient is postop day 1 status post thrombolysis. Patient complains of left leg pain. Overall motor and sensation intact and reports that he is leg does feel warmer. He is just concerned that his hip and knee have been a source of discomfort for him. Tolerating a diet. Currently on a heparin drip. Physical Exam Vital Signs: Vital Signs: Last Vital Signs Temp 97.6 F 02/19/23 08:00 Pulse 90 02/19/23 08:00 Resp 18 02/19/23 08:00 BP 120/58 L 02/19/23 08:00 Pulse Ox 92 02/19/23 08:00 O2 Del Method Room Air 02/19/23 08:00 BMI result Body Mass Index 22.1 Const: General: cooperative, healthy appearing and no acute distress Orientation/consciousness: oriented to person, oriented to place and oriented to time HEENT: Head: Yes normal to inspection Neck: Carotids: no bruits Chest: Chest palpation & inspection: normal inspection of the chest Resp: Effort & Inspection: normal respiratory effort and able to speak in complete sentences Auscultation: clear to auscultation bilaterally Cardio: Other: Palpable left DP Rate: regular rate Heart sounds: S1 normal heart sound present and S2 normal heart sound present Peripheral pulses: dorsalis pedis present GI: Inspection: Yes normal to inspection Skin: General skin exam: no rashes or lesions noted Wounds: no wounds Neuro: General: oriented to person, oriented to place, oriented to time and CN's II-XI intact bilaterally Extrem: General: Yes normal to inspection, Yes full ROM and Yes no clubbing, cyanosis or edema Psych: Appearance: grossly normal and well kempt Speech and movement: Normal speech and movement present Affect: normal affect Progress Note: A&P Assessment and plan (1) PAD (peripheral artery disease): Status: Acute Assessment and Plan: Patient is status post thrombolysis of left fem-pop bypass. It is functioning and patent and he has a palpable pulse. Concern here is that he has left thigh and knee pain. Will start physical therapy. Eventually will transition heparin to Eliquis. Will require inpatient hospital stay until ambulatory. Will obtain hospitalists evaluation as well. Time Spent With Patient Time: Total time managing care of this patient today ____ minutes. Procedures Date of Service Date of Service: 02/19/23 Quality Stroke Does the patient have a stroke diagnosis?: No VTE Prior VTE?: No VTE Risk Level:: Medical - moderate - high VTE Device Contraindication: Treatment Not Indicated VTE Drug Contraindication: N/A - Med Ordered
[2023-02-19] MEDS: Aspirin 81 MG TAB.CHEW PO (11:39)
--- NOTE | 2023-02-19 11:44 | P.CONHOSP_ITS ---
patient with urinary symptoms including urgency, frequency, dysuria as well as found to have an episode of hypotension, will start him on IV antibiotics, patient was also given 2 L of IV fluids, follow cultures History of Present Illness Data of Consult Service Date: 02/19/23 Primary Care Provider: Bobby Deleon MD [facility] Reason for consult: Medical management Patient is a 72-year-old male with a PMH significant for COPD, HTN, BPH, PAD s/p left fem-pop bypass on 12/29/2022, currently admitted to the hospital on postop day 1 after an elective placement of thrombolysis catheters for occluded left fe m-pop. Patient was initially in the ICU being monitored while being treated with tPA/heparin thrombolytics. Hospitalist consult for medical management. Patient currently complaining of inability to urinate despite the urge. Patient states that he had been urinating normally up until 11:00 o'clock this morning when his pain medication was changed from oxycodone to morphine. Patient notes that he has felt the urge to urinate but and able to produce more than a few drops after starting morphine. Patient has since been moved back to oxycodone. Patient with a history of BPH on tamsulosin, says he has not experienced something similar before. Patient otherwise not experiencing any acute medical complaints. Says pain in his left leg is currently well managed. Denies numbness or tingling in extremities. No fever, chills, nausea, vomiting, diarrhea, abdominal pain. Denies chest pain/pressure, palpitations. No shortness of breath. Denies headache, vision changes. Review of Systems Review of Systems: Urinary retention Mild left leg pain No other acute medical complaints at this time Yes all other systems are reviewed and are negative [facility] Medical History BPH (benign prostatic hyperplasia) COPD (chronic obstructive pulmonary disease) GERD (gastroesophageal reflux disease) Glaucoma History of femoral angiogram Surgical History History of back surgery Hx of bilateral hip replacements Hx of colonoscopy Hx of knee surgery Hx of total knee replacement Status post right rotator cuff repair Social History Household Members: None Housing: Condominium Are you a primary caretaker resort to a significant other at home: No Do you presently have visiting nurse or other home services: No Patient Tobacco Use Status: Former Tobacco user Tobacco use type: Cigarette Cigarettes Per Day: 4 Years Smoked: 50 Second Hand Smoke Exposure: No Use of substances other than those prescribed or required for medical reasons: No Currently Displaying Signs/Symptoms of Drug Intoxication Withdrawal: No Have you been hit, kicked, punched, or otherwise hurt by someone within the past year? If so, by whom?: No Do you feel safe in your current relationship?: No Current Relationship Is there a partner from a previous relationship who is making you feel unsafe now?: No Are you made to feel afraid or neglected: No Spiritual Healthcare Practices: NO ISSUES Adventism Healthcare Practices: NO ISSUES Cultural Healthcare Practices: NO ISSUES Advance Directives: No Advance Directives Information Provided: Yes Do you have thoughts of harming others: None Do you have a plan to hurt others: No Plan Recently lost weight without trying: No Nutrition Risks: No Nutritional Risk Poor oral hygiene: No service: No Current occupational status: unemployed Meds Allergies Allergy/AdvReac Type Severity Reaction Status Date / Time No Known Allergies Allergy Verified 02/16/23 10:32 Active Medications: Current Medications Acetaminophen (Acetaminophen 325 Mg Tablet) 650 mg PO Q6H PRN PRN Reason: Pain, Mild (Pain Scale 1-3) Aspirin (Aspirin 81 Mg Tab.Chew) 81 mg PO DAILY [facility] Last Admin: 02/19/23 11:39 Dose: 81 mg Heparin Sodium (Porcine) (Heparin Sodium,Porcine 5,000 Unit/Ml Vial) 3,800 unit 40 unit/kg (3800 unit) IVPUSH PROTOCOL BOLUS PRN; Protocol PRN Reason: 40 unit/kg - Heparin Protocol Heparin Sodium (Porcine) (Heparin Sodium,Porcine 5,000 Unit/Ml Vial) 7,500 unit 80 unit/kg (7500 unit) IVPUSH PROTOCOL BOLUS PRN; Protocol PRN Reason: 80 unit/kg - Heparin Protocol Heparin Sodium/Sodium Chloride (Heparin Sodium,Porcine/1/2ns) 25,000 unit in 250 mls @ 0 mls/hr IVCONT .Q0M [facility]; Protocol Last Titration: 02/19/23 08:47 Dose: 8.65 units/kg/hr, 8.12 mls/hr Morphine Sulfate (Morphine Sulfate 4 Mg/Ml Cartridge) 4 mg IVPUSH Q2H PRN; Protocol PRN Reason: Pain, Severe (Pain Scale 7-10) Last Admin: 02/19/23 10:59 Dose: 4 mg Oxycodone HCl (Oxycodone Hcl Immed Release 5 Mg Tablet) 5 mg PO Q4H PRN PRN Reason: Pain, Moderate(Pain Scale 4-6) Last Admin: 02/19/23 08:55 Dose: 5 mg Sodium Chloride (0.9 % Sodium Chloride Flush 3 Ml Syringe) 3 ml IVFLUSH QSHIFT [facility] Last Admin: 02/19/23 07:34 Dose: Not Given Tamsulosin HCl (Tamsulosin Hcl 0.4 Mg Capsule) 0.4 mg PO BEDTIME [facility] Last Admin: 02/18/23 21:13 Dose: 0.4 mg Trazodone HCl (Trazodone Hcl 100 Mg Tablet) 100 mg PO BEDTIME [facility] Last Admin: 02/18/23 21:13 Dose: 100 mg Home Medications Medication Instructions Recorded Confirmed Last Taken Type omeprazole 20 mg capsule,delayed 20 mg PO DAILY 10/07/22 02/17/23 10/28/22 History release tamsulosin 0.4 mg capsule 0.4 mg PO QPM 10/07/22 02/17/23 10/28/22 History trazodone 100 mg tablet 100 mg PO BEDTIME 10/07/22 02/17/23 10/28/22 History dorzolamide 22.3 mg-timolol 6.8 1 drp ophthalmic-Left BID 12/22/22 02/17/23 Unknown History mg/mL eye drops latanoprost 0.005 % eye drops 1 drp ophthalmic (eye) BEDTIME 12/22/22 02/17/23 Unknown History Physical Exam Vital Signs and Narrative: Vital Signs: Last Vital Signs Temp 97.6 F 02/19/23 08:00 Pulse 90 02/19/23 08:00 Resp 18 02/19/23 08:00 BP 120/58 L 02/19/23 08:00 Pulse Ox 92 02/19/23 08:00 O2 Del Method Room Air 02/19/23 08:00 BMI result Body Mass Index 22.1 General: AOx3, no acute distress Resp: CTA bilaterally CVS: S1, S2, RRR, pedal pulses intact bilaterally GI: +BS, NT, no distention Skin: No rash Neuro: Cranial nerves II-XII grossly intact bilaterally. Motor grossly intact bilaterally. Sensation to light touch intact bilaterally of lower extremities Extremities: No edema Psych: Appropriate affect Results Labs 02/19/23 07:43 02/19/23 07:43 Labs: Laboratory Results - last 24 hr 02/18/23 02/18/23 02/19/23 14:37 19:03 01:08 MCV MCH MCHC RDW Plt Count MPV Immature Gran % (Auto) Neut % (Auto) Lymph % (Auto) [place] % (Auto) Eos % (Auto) Baso % (Auto) Lymph # (Auto) [place] # (Auto) Eos # (Auto) Baso # (Auto) Abs Immat Gran (auto) Absolute Neuts (auto) Absolute Nucleated RBC Nucleated RBC % (auto) aPTT Heparin Protocol 86.5 H 71.0 85.6 H D Anion Gap Estim Creat Clear Calc Estimated GFR Random Glucose Calcium Phosphorus Magnesium Albumin 02/19/23 02/19/23 02/19/23 07:43 07:43 07:43 MCV 91.1 MCH 30.1 MCHC 33.0 RDW 14.1 Plt Count 157 L MPV 9.0 L Immature Gran % (Auto) 0.3 Neut % (Auto) 69.4 Lymph % (Auto) 16.8 L [place] % (Auto) 10.8 Eos % (Auto) 2.2 Baso % (Auto) 0.5 Lymph # (Auto) 1.0 L [place] # (Auto) 0.6 Eos # (Auto) 0.1 Baso # (Auto) 0.0 Abs Immat Gran (auto) 0.02 Absolute Neuts (auto) 4.1 Absolute Nucleated RBC 0.000 Nucleated RBC % (auto) 0.0 aPTT Heparin Protocol 63.0 D Anion Gap 9 L Estim Creat Clear Calc 56.0 Estimated GFR 54 Random Glucose 106 Calcium 8.4 Phosphorus 3.3 Magnesium 1.7 Albumin 2.9 L Assessment and Plan (1) S/P femoral-popliteal bypass surgery: Status: Acute (2) PAD (peripheral artery disease): Status: Acute Plan Patient is a 72-year-old male with a PMH significant for COPD, HTN, BPH, PAD s/p left fem-pop bypass on 12/29/2022, currently admitted to the hospital on postop day 1 after an elective placement of thrombolysis catheters for occluded left fem-pop. Patient was initially in the ICU being monitored while being treated with tPA/heparin thrombolytics. Hospitalist consult for medical management. Catheter directed thrombolysis Plan as per vascular surgery Urinary retention Patient complaining of inability to fully empty his bladder since 11:00 when his pain management was switched to morphine Morphine induced vs postsurgical complication Morphine has been stopped and patient placed back on oxycodone Bladder scan per shift Straight catheterization if bladder scan shows >350 ml UA to check for UTI BPH Continue tamsulosin GERD Continue omeprazole Glaucoma Continue home eye drops Thank you for allowing us to participate in the care of this patient. Will continue to follow at this time. Please let us know if there are any acute complaints or questions. Time Spent With Patient Time: Total time managing care of this patient today ____ minutes.
[2023-02-19] MEDS: Heparin Sodium,Porcine/1/2NS 25,000 UNIT/250 ML IV.SOLN 8.12 UNIT IVCONT (13:36)
[2023-02-19 14:39] LABS: PTT Heparin Drip 55.4 SEC (53-77.9)
[2023-02-19] MEDS: 0.9 % Sodium Chloride Flush 3 ML SYRINGE IVFLUSH (16:43)
[2023-02-19] MEDS: Acetaminophen 325 MG TABLET 650 MG PO (18:29)
[2023-02-19] MEDS: Tamsulosin HCL 0.4 MG CAPSULE PO (21:06)
[2023-02-19] MEDS: traZODone HCL 100 MG TABLET PO (21:06)
[2023-02-20] VITALS (11 sets, daily range): BP systolic 90–124; BP diastolic 46–63; PULSE 100–115; RESP 16–20; TEMP 36.4–38.1; O2SAT 92–99; BMI 26.9
--- NOTE | 2023-02-20 05:13 | PC.NURSE ---
As reported by previous RN, pt has been having difficulty initiating urine, no abdl distention noted, cold towel applied to lower abd, faucet put on, med given, instructed pt to try to void, later voided 200ml with relief, and has been voiding in urinal throughout the night, post void bladder scan at 5am done= 64 ml.
[2023-02-20] MEDS: Aspirin 81 MG TAB.CHEW PO (07:56)
[2023-02-20] MEDS: oxyCODONE HCl Immed Release 5 MG TABLET PO ×3 (08:28→18:12)
[2023-02-20 08:30] LABS: Appearance Urine Cloudy; Color Urine Dark Yellow; Glucose Urine UA Negative (Negative); Leukocyte Esterase Urine Moderate (2+) (Negative); Nitrite Urine Positive (Negative); PH 5.5 (5.0-9.0); UMIC TRIGGER UA YES; Urine Blood Negative (Negative); Urine Ketones Negative (Negative); Urine Protein Negative (Neg-Trace)
[2023-02-20 08:48] LABS: Bacteria Urine 4+ (None Seen); RBC Urine 0-2 /HPF (0-2); WBC Urine >50 /HPF (0-5)
[2023-02-20 08:49] LABS: Hyaline Casts Urine 0-2 /LPF (0-2)
--- NOTE | 2023-02-20 09:36 | HO.VASCPN ---
Subjective Subjective Date of Service: 02/20/23 Patient reports: no new complaints and still having pain Interval history: 72-year-old gentleman status post thrombolysis of fem-pop bypass graft. Appears to be doing relatively the same. Continues to complain of pain especially in the hip and knee. Has been tolerating heparin GTT. Urinary retention appears to have resolved. He is voiding freely. Physical Exam Vital Signs: Vital Signs: Last Vital Signs Temp 99.8 F 02/20/23 07:01 Pulse 100 02/20/23 07:01 Resp 20 02/20/23 07:01 BP 124/55 L 02/20/23 07:01 Pulse Ox 95 02/20/23 07:01 O2 Del Method Room Air 02/20/23 07:01 BMI result Body Mass Index 26.9 Const: General: cooperative, healthy appearing and no acute distress Orientation/consciousness: oriented to person, oriented to place and oriented to time HEENT: Head: Yes normal to inspection Neck: Carotids: no bruits Chest: Chest palpation & inspection: normal inspection of the chest Resp: Effort & Inspection: normal respiratory effort and able to speak in complete sentences Auscultation: clear to auscultation bilaterally Cardio: Other: Left leg palpable dorsalis pedis pulse Rate: regular rate Heart sounds: S1 normal heart sound present and S2 normal heart sound present GI: Inspection: Yes normal to inspection Skin: General skin exam: no rashes or lesions noted Wounds: no wounds Neuro: General: oriented to person, oriented to place, oriented to time and CN's II-XI intact bilaterally Extrem: General: Yes normal to inspection, Yes full ROM and Yes no clubbing, cyanosis or edema Psych: Appearance: grossly normal and well kempt Speech and movement: Normal speech and movement present Affect: normal affect Progress Note: A&P Assessment and plan (1) PAD (peripheral artery disease): Status: Acute Assessment and Plan: In short patient is doing relatively well status post thrombolysis. I do believe that he does have some musculoskeletal issues. He has seen physical therapy and they are recommending short-term acute rehab. This was discussed with case management and would be stable to be discharged as early as today. Heparin was converted over to Eliquis. Continue pain control and stable to be discharged Time Spent With Patient Time: Total time managing care of this patient today ____ minutes. Procedures Date of Service Date of Service: 02/20/23 Quality Stroke Does the patient have a stroke diagnosis?: No VTE Prior VTE?: No VTE Risk Level:: Medical - moderate - high VTE Device Contraindication: Treatment Not Indicated VTE Drug Contraindication: N/A - Med Ordered
[2023-02-20] MEDS: Apixaban 2.5 MG TABLET PO ×2 (10:50→21:08)
[2023-02-20] MEDS: polyethylene glycoL 3350 17 GM POWD.PACK PO (10:51)
--- NOTE | 2023-02-20 12:24 | MHC.CM.PN ---
pt declined by [facility] dr conley notified abd will sebnd pt home on thu w/vna
--- NOTE | 2023-02-20 12:30 | MHC.CM.PN ---
dr mata narcotic scrip placed in pts medical record
[2023-02-20] MEDS: Acetaminophen 325 MG TABLET 650 MG PO ×2 (13:51→21:08)
[2023-02-20 14:35] LABS: PTT Heparin Drip 30.7 SEC (53-77.9)
[2023-02-20] MEDS: 0.9 % Sodium Chloride Flush 3 ML SYRINGE IVFLUSH ×2 (15:11→22:26)
[2023-02-20] MEDS: Tamsulosin HCL 0.4 MG CAPSULE PO (21:07)
[2023-02-20] MEDS: traZODone HCL 100 MG TABLET PO (21:08)
--- NOTE | 2023-02-20 22:36 | P.PNIM_ITS ---
Subjective Subjective Date of Service: 02/20/23 <ELBA Luciano - Last Filed: 02/20/23 23:04> 02/21/23 <Sona Vázquez MD - Last Filed: 02/21/23 13:18> Interval History: No acute issues overnight Patient was able to freely to void without assistance of straight cath after switching from morphine to oxy Pain has been overall well controlled. Patient has been out of bed and ambulating with PT. Patient was set to be discharged today to short-term rehab, however was denied admission since patient left AMA from rehab last time <ELBA Luciano L ast Filed: 02/20/23 23:04> Review of Systems Continued left knee and hip pain Denies chest pain/pressure, palpitations No fever, chills, nausea, vomiting, diarrhea, abdominal pain No shortness of breath No signs of urinary retention <ELBA Luciano Last Filed: 02/20/23 23:04> Review of Systems: Yes all other systems are reviewed and are negative <ELBA Luciano Last Filed: 02/20/23 23:04> Physical Exam Vital Signs: Vital Signs: Last Vital Signs Temp 98.5 F 02/20/23 22:30 Pulse 100 02/20/23 20:00 Resp 18 02/20/23 21:09 BP 119/63 02/20/23 20:00 Pulse Ox 99 02/20/23 20:00 O2 Del Method Room Air 02/20/23 20:00 BMI result Body Mass Index 26.9 <ELBA Luciano Last Filed: 02/20/23 23:04> General: AOx3, no acute distress Resp: CTA bilaterally CVS: S1, S2, RRR GI: +BS, NT, no distention Skin: No rash Neuro: Cranial nerves II-XII grossly intact bilaterally. Motor grossly intact bilaterally Extremities: No edema Psych: Appropriate affect <ELBA Luciano Last Filed: 02/20/23 23:04> Objective Data Active Medications Acetaminophen (Acetaminophen 325 Mg Tablet) 650 mg PO Q6H PRN PRN Reason: Pain, Mild (Pain Scale 1-3) Last Admin: 02/20/23 21:08 Dose: 650 mg Documented By: NATALY Apixaban (Apixaban 2.5 Mg Tablet) 2.5 mg PO BID [facility] Last Admin: 02/20/23 21:08 Dose: 2.5 mg Documented By: NATALY Aspirin (Aspirin 81 Mg Tab.Chew) 81 mg PO DAILY [facility] Last Admin: 02/20/23 07:56 Dose: 81 mg Documented By: ANABEL Morphine Sulfate (Morphine Sulfate 4 Mg/Ml Cartridge) 4 mg IVPUSH Q2H PRN; Protocol PRN Reason: Pain, Severe (Pain Scale 7-10) Last Admin: 02/19/23 16:43 Dose: 4 mg Documented By: SANDY Oxycodone HCl (Oxycodone Hcl Immed Release 5 Mg Tablet) 5 mg PO Q4H PRN PRN Reason: Pain, Moderate(Pain Scale 4-6) Last Admin: 02/20/23 18:12 Dose: 5 mg Documented By: ANABEL Polyethylene Glycol (Polyethylene Glycol 3350 17 Gm Powd.Pack) 17 gm PO DAILY [facility] Last Admin: 02/20/23 10:51 Dose: 17 gm Documented By: ANABEL Sodium Chloride (0.9 % Sodium Chloride Flush 3 Ml Syringe) 3 ml IVFLUSH QSHIFT [facility] Last Admin: 02/20/23 22:26 Dose: 3 ml Documented By: NATALY Tamsulosin HCl (Tamsulosin Hcl 0.4 Mg Capsule) 0.4 mg PO BEDTIME [facility] Last Admin: 02/20/23 21:07 Dose: 0.4 mg Documented By: NATALY Trazodone HCl (Trazodone Hcl 100 Mg Tablet) 100 mg PO BEDTIME [facility] Last Admin: 02/20/23 21:08 Dose: 100 mg Documented By: NATALY <ELBA Luciano - Last Filed: 02/20/23 23:04> Labs CBC & Chem 7: 02/19/23 07:43 02/19/23 07:43 <ELBA Luciano - Last Filed: 02/20/23 23:04> Labs: Laboratory Results - last 24 hr 02/20/23 02/20/23 05:15 14:11 aPTT Heparin Protocol 30.7 L D Urine Color Dark Yellow Urine Appearance Cloudy Urine pH 5.5 Ur Specific [place] 1.020 Urine Protein Negative Urine Glucose (UA) Negative Urine Ketones Negative Urine Blood Negative Urine Nitrite Positive H Ur Leukocyte Esterase Moderate (2+) H Urine RBC 0-2 Urine WBC >50 Ur Squamous Epith Cells 3-5 Urine Bacteria 4+ Hyaline Casts 0-2 <ELBA Luciano Last Filed: 02/20/23 23:04> Assessment and Plan (1) S/P femoral-popliteal bypass surgery: Status: Acute <ELBA Luciano - Last Filed: 02/20/23 23:04> (2) PAD (peripheral artery disease): Status: Acute <ELBA Luciano - Last Filed: 02/20/23 23:04> Assessment and Plan: Patient is a 72-year-old male with a PMH significant for COPD, HTN, BPH, PAD s/p left fem-pop bypass on 12/29/2022, currently admitted to the hospital on postop day 1 after an elective placement of thrombolysis catheters for occluded left fem-pop.? Patient was initially in the ICU being monitored while being treated with tPA/heparin thrombolytics.? Catheter directed thrombolysis Plan as per vascular surgery Urinary retention Patient no longer complaining of inability to fully empty his bladder Pt has been able to freely void since last night Continue oxycodone Cancel bladder scan and straight catherterization orders UTI Pt's UA came back positive for UTI Will treat with ceftriaxone, started 02/20/2023 Follow cultures BPH Continue tamsulosin GERD Continue omeprazole Glaucoma Continue home eye drops <ELBA Luciano Last Filed: 02/20/23 23:04> Time Spent With Patient Time: Total time managing care of this patient today ____ minutes. <ELBA Luciano Last Filed: 02/20/23 23:04> Quality Stroke Does the patient have a stroke diagnosis?: No <ELBA Luciano Last Filed: 02/20/23 23:04> VTE Prior VTE?: No <ELBA Luciano Last Filed: 02/20/23 23:04> VTE Risk Level:: Medical - moderate - high <ELBA Luciano Last Filed: 02/20/23 23:04> VTE Device Contraindication: Treatment Not Indicated <ELBA Luciano Last Filed: 02/20/23 23:04> VTE Drug Contraindication: N/A - Med Ordered <ELBA Luciano - Last Filed: 02/20/23 23:04>
[2023-02-21] VITALS (11 sets, daily range): BP systolic 88–136; BP diastolic 42–75; PULSE 78–107; RESP 16–18; TEMP 36.1–37.7; O2SAT 92–100; BMI 21.5
[2023-02-21] MEDS: SODIUM CHLORIDE 2772 ML IV (00:06)
[2023-02-21] MEDS: cefTRIAXone sodium 1 GM in 0.9 % Sodium Chloride 50 ML IV ×2 (00:54→23:01)
[2023-02-21 00:56] LABS: Lactic Acid 0.7 mmol/L (0.5-2.0)
[2023-02-21] MEDS: 0.9 % Sodium Chloride 1,000 ML 999 ML IV ×2 (02:04→22:10)
[2023-02-21] MEDS: oxyCODONE HCl Immed Release 5 MG TABLET PO ×3 (03:55→18:12)
[2023-02-21] MEDS: 0.9 % Sodium Chloride Flush 3 ML SYRINGE IVFLUSH ×3 (08:54→20:59)
[2023-02-21] MEDS: Aspirin 81 MG TAB.CHEW PO (08:54)
[2023-02-21] MEDS: Apixaban 2.5 MG TABLET PO ×2 (08:54→20:59)
--- NOTE | 2023-02-21 19:38 | P.PNIM_ITS ---
patient found to be hypotensive, possibly secondary to dehydration versus sepsis less likely, patient does have a UTI which is being treated with ceftriaxone, patient given fluids with appropriate elevation of his BP. Patient lactic acid is normal. Will continue to follow Subjective Subjective Date of Service: 02/21/23 Interval History: Patient experienced some hypotension with BP of 86/46 last night around 23:30. Lactic acid was 0.7. Patient was placed in slight Trendelenburg and given IVF infusion of of 30 mg/kg. Patient's BP has since improved. Patient says he has experienced some lightheadedness and dizziness with standing Patient says he has been freely voiding during the day, but complains of feeling like he has not fully emptied his bladder at night Patient has not been out of his room yet but has been out of bed to his chair Still experiencing pain and swelling in left thigh knee and calf Review of Systems Lightheadedness and dizziness with standing Urinary retention at night Pain and swelling in left thigh knee and calf Denies fever, chills, nausea, vomiting, abdominal pain No chest pain/pressure, palpitations No shortness of breath Denies numbness or tingling in lower leg extremities Review of Systems: Yes all other systems are reviewed and are negative Physical Exam Vital Signs: Vital Signs: Last Vital Signs Temp 97 F 02/21/23 16:00 Pulse 78 02/21/23 16:00 Resp 18 02/21/23 16:00 BP 130/72 02/21/23 16:00 Pulse Ox 97 02/21/23 16:00 O2 Del Method Room Air 02/21/23 16:00 BMI result Body Mass Index 21.5 General: AOx3, no acute distress Resp: CTA bilaterally CVS: S1, S2, RRR GI: +BS, NT, no distention Skin: No rash Neuro: Cranial nerves II-XII grossly intact bilaterally. Motor grossly intact bilaterally. Sensation to lower extremities intact bilaterally Extremities: Mild swelling and tenderness to left leg from thigh to calf Psych: Appropriate affect Objective Data Active Medications Acetaminophen (Acetaminophen 325 Mg Tablet) 650 mg PO Q6H PRN PRN Reason: Pain, Mild (Pain Scale 1-3) Last Admin: 02/20/23 21:08 Dose: 650 mg Documented By: NATALY Apixaban (Apixaban 2.5 Mg Tablet) 2.5 mg PO BID [facility] Last Admin: 02/21/23 08:54 Dose: 2.5 mg Documented By: ESTELA Aspirin (Aspirin 81 Mg Tab.Chew) 81 mg PO DAILY [facility] Last Admin: 02/21/23 08:54 Dose: 81 mg Documented By: ESTELA Ceftriaxone Sodium 1 gm/ (Sodium Chloride) 50 mls @ 100 mls/hr IV Q24H [facility] Last Infusion: 02/21/23 01:00 Dose: 0 mls/hr Documented By: NATALY Morphine Sulfate (Morphine Sulfate 4 Mg/Ml Cartridge) 4 mg IVPUSH Q2H PRN; Protocol PRN Reason: Pain, Severe (Pain Scale 7-10) Last Admin: 02/19/23 16:43 Dose: 4 mg Documented By: SANDY Oxycodone HCl (Oxycodone Hcl Immed Release 5 Mg Tablet) 5 mg PO Q4H PRN PRN Reason: Pain, Moderate(Pain Scale 4-6) Last Admin: 02/21/23 18:12 Dose: 5 mg Documented By: ESTELA Phenazopyridine HCl (Phenazopyridine Hcl 200 Mg Tablet) 200 mg PO TID PRN PRN Reason: urinary tract infection sympto Stop: 02/23/23 06:11 Polyethylene Glycol (Polyethylene Glycol 3350 17 Gm Powd.Pack) 17 gm PO DAILY [facility] Last Admin: 02/21/23 08:59 Dose: Not Given Documented By: ESTELA Non-Admin Reason: Patient Refused Sodium Chloride (0.9 % Sodium Chloride Flush 3 Ml Syringe) 3 ml IVFLUSH QSHIFT [facility] Last Admin: 02/21/23 15:31 Dose: 3 ml Documented By: ESTELA Tamsulosin HCl (Tamsulosin Hcl 0.4 Mg Capsule) 0.4 mg PO BEDTIME [facility] Last Admin: 02/20/23 21:07 Dose: 0.4 mg Documented By: NATALY Trazodone HCl (Trazodone Hcl 100 Mg Tablet) 100 mg PO BEDTIME [facility] Last Admin: 02/20/23 21:08 Dose: 100 mg Documented By: NATALY Labs 02/19/23 07:43 02/19/23 07:43 Labs: Laboratory Results - last 24 hr 02/21/23 00:21 Lactic Acid 0.7 Assessment and Plan (1) S/P femoral-popliteal bypass surgery: Status: Acute (2) UTI (urinary tract infection): Status: Acute (3) Hypotension: Status: Acute Plan Patient is a 72-year-old male with a PMH significant for COPD, HTN, BPH, PAD s/p left fem-pop bypass on 12/29/2022, currently admitted to the hospital on postop day 1 after an elective placement of thrombolysis catheters for occluded left fem-pop.? Patient was initially in the ICU being monitored while being treated with tPA/heparin thrombolytics.?Patient was set to be discharged on Thursday to short-term rehab, however was denied admission since patient left AMA from rehab last time.? Catheter directed thrombolysis Plan as per vascular surgery Hypotension Pt's BP was 86/46 last night around 23:30 Pt complains of some lightheadedness and dizziness with standing Lactic acid was 0.7 Patient was placed in slight Trendelenburg and given IVF infusion of of 30 mg/kg BP improved, now 130/72 Continue close monitoring BP UTI Pt's UA positive for UTI Continue ceftriaxone, started 02/20/2023 Follow cultures Urinary retention Pt initially complained of morphine-induced urinary retention which resolved with switching to oxycodone Patient now complaining of inability to fully empty his bladder during the night; pt able to freely void during the day Last bladder scan showed very little content Likely secondary the UTI Continue oxycodone BPH Continue tamsulosin GERD Continue omeprazole Glaucoma Continue home eye drops Time Spent With Patient Time: Total time managing care of this patient today ____ minutes. Quality Stroke Does the patient have a stroke diagnosis?: No VTE Prior VTE?: No VTE Risk Level:: Medical - moderate - high VTE Device Contraindication: Treatment Not Indicated VTE Drug Contraindication: N/A - Med Ordered
[2023-02-21] MEDS: Tamsulosin HCL 0.4 MG CAPSULE PO (20:59)
[2023-02-21] MEDS: traZODone HCL 100 MG TABLET PO (21:01)
[2023-02-21 22:26] LABS: Lactic Acid 0.5 mmol/L (0.5-2.0)
[2023-02-22] VITALS (14 sets, daily range): BP systolic 104–139; BP diastolic 50–65; PULSE 93–104; RESP 14–18; TEMP 36.1–37.9; O2SAT 94–98; BMI 21.5
[2023-02-22] MEDS: polyethylene glycoL 3350 17 GM POWD.PACK PO (07:58)
[2023-02-22] MEDS: Aspirin 81 MG TAB.CHEW PO (07:58)
[2023-02-22] MEDS: Apixaban 2.5 MG TABLET PO ×2 (07:58→20:28)
[2023-02-22] MEDS: 0.9 % Sodium Chloride Flush 3 ML SYRINGE IVFLUSH ×2 (08:03→20:29)
[2023-02-22 09:17] LABS: Mean Corpuscular HGB Conc 32.4 g/dl (31.0-36.0); Mean Corpuscular Hemoglobin 29.1 pg (27.0-33.0); Mean Corpuscular Volume 89.9 fL (80.0-98.0); Mean Platelet Volume 8.9 fL (9.4-12.4); Platelet Count 147 X10*3/uL (160-400); Red Blood Count 2.27 X10*6/uL (4.60-5.80); Red Cell Distribution Width 13.9 % (11.0-16.0); White Blood Count 7.4 X10*3/uL (4.8-10.8)
[2023-02-22 09:20] LABS: Hematocrit 20.4 % (42.0-52.0)
[2023-02-22 09:30] LABS: Hemoglobin 6.6 g/dl (14.0-18.0)
[2023-02-22 09:47] LABS: Immature Retic Fraction 20.9 % (2.3-13.4); Retic HGB Equivalent 28.2 pg (30.0-35.0); Reticulocyte Percent 2.3 % (0.5-1.8)
[2023-02-22 10:33] LABS: Anion Gap 10 (12-20); Blood Urea Nitrogen 16 mg/dL (9-16); Calcium 8.4 mg/dL (8.4-10.2); Carbon Dioxide 28 mmol/L (22-29); Chloride 104 mmol/L (96-108); Creatinine Clr Calc Pharmacy 55.4; Estimated Glomerular Filt Rate 55; Glucose Random 129 mg/dL (60-115); Lactate Dehydrogenase 102 U/L (118-273); Potassium 4.2 mmol/L (3.3-5.1); Sodium 138 mmol/L (135-145)
--- NOTE | 2023-02-22 12:23 | P.PNIM_ITS ---
Subjective Subjective Date of Service: 02/22/23 Interval History: Patient was again hypotensive last night and received 1 L IVF Patient continues to have some lightheadedness and dizziness with standing Labs this morning showed H&H of 6.6/20.4, for received 2 units of PRBC Patient has still not been out of his room, but promises to push himself today and will try to walk in the hallway Pain currently well controlled Patient no longer complaining of urinary tension, was able to void freely last night Review of Systems Lightheadedness and dizziness with standing Swelling in left thigh knee and calf with minor pain No longer complaining of urinary retention Denies fever, chills, nausea, vomiting, abdominal pain No chest pain/pressure, palpitations No shortness of breath Denies numbness or tingling in lower leg extremities Physical Exam Vital Signs: Vital Signs: Last Vital Signs Temp 98.3 F 02/22/23 12:07 Pulse 98 02/22/23 12:07 Resp 16 02/22/23 12:07 BP 118/56 L 02/22/23 12:07 Pulse Ox 97 02/22/23 08:00 O2 Del Method Room Air 02/22/23 08:00 BMI result Body Mass Index 21.5 General: AOx3, no acute distress Resp: CTA bilaterally CVS: S1, S2, RRR GI: +BS, NT, no distention Skin: No rash Neuro: Cranial nerves II-XII grossly intact bilaterally. Motor grossly intact bilaterally Extremities: Minor swelling and warmth of left leg from thigh to calf. No ecchymosis or obviously palpable hematoma. Mild tenderness to palpation. Psych: Appropriate affect Objective Data Active Medications Acetaminophen (Acetaminophen 325 Mg Tablet) 650 mg PO Q6H PRN PRN Reason: Pain, Mild (Pain Scale 1-3) Last Admin: 02/20/23 21:08 Dose: 650 mg Documented By: OZORALB Apixaban (Apixaban 2.5 Mg Tablet) 2.5 mg PO BID [facility] Aspirin (Aspirin 81 Mg Tab.Chew) 81 mg PO DAILY [facility] Last Admin: 02/22/23 07:58 Dose: 81 mg Documented By: ANDRENM Ceftriaxone Sodium 1 gm/ (Sodium Chloride) 50 mls @ 100 mls/hr IV Q24H [facility] Last Infusion: 02/22/23 00:19 Dose: 0 mls/hr Documented By: NATALY Morphine Sulfate (Morphine Sulfate 4 Mg/Ml Cartridge) 4 mg IVPUSH Q2H PRN; Protocol PRN Reason: Pain, Severe (Pain Scale 7-10) Last Admin: 02/19/23 16:43 Dose: 4 mg Documented By: SANDY Phenazopyridine HCl (Phenazopyridine Hcl 200 Mg Tablet) 200 mg PO TID PRN PRN Reason: urinary tract infection sympto Stop: 02/23/23 06:11 Polyethylene Glycol (Polyethylene Glycol 3350 17 Gm Powd.Pack) 17 gm PO DAILY [facility] Last Admin: 02/22/23 07:58 Dose: 17 gm Documented By: ESTELA Sodium Chloride (0.9 % Sodium Chloride Flush 3 Ml Syringe) 3 ml IVFLUSH QSHIFT [facility] Last Admin: 02/22/23 08:03 Dose: 3 ml Documented By: ESTELA Tamsulosin HCl (Tamsulosin Hcl 0.4 Mg Capsule) 0.4 mg PO BEDTIME [facility] Last Admin: 02/21/23 20:59 Dose: 0.4 mg Documented By: NATALY Trazodone HCl (Trazodone Hcl 100 Mg Tablet) 100 mg PO BEDTIME [facility] Last Admin: 02/21/23 21:01 Dose: 100 mg Documented By: NATALY Labs 02/22/23 09:09 02/22/23 09:09 Labs: Laboratory Results - last 24 hr 02/21/23 02/22/23 02/22/23 22:06 09:09 09:09 MCV 89.9 MCH 29.1 MCHC 32.4 RDW 13.9 Plt Count 147 L MPV 8.9 L Absolute Nucleated RBC 0.000 Nucleated RBC % (auto) 0.0 Absolute Retic 0.050 Percent Retic 2.3 H Immature Retic Fraction 20.9 H Retic Hgb Equivalent 28.2 L Anion Gap 10 L Estim Creat Clear Calc 55.4 Estimated GFR 55 Random Glucose 129 H Lactic Acid 0.5 Calcium 8.4 Lactate Dehydrogenase 102 L Blood Type Antibody Screen BETTE, Polyspecific Positive BETTE Work-up Crossmatch 02/22/23 02/22/23 10:04 10:04 MCV MCH MCHC RDW Plt Count MPV Absolute Nucleated RBC Nucleated RBC % (auto) Absolute Retic Percent Retic Immature Retic Fraction Retic Hgb Equivalent Anion Gap Estim Creat Clear Calc Estimated GFR Random Glucose Lactic Acid Calcium Lactate Dehydrogenase Blood Type O Positive Antibody Screen NEGATIVE BETTE, Polyspecific NEGATIVE Positive BETTE Work-up TNP Crossmatch See Detail Microbiology Microbiology Results: Microbiology 02/21/23 Unknown Urine Culture - Preliminary Urine clean catch - Clean Catch Midstream Gram negative rae 02/21/23 00:21 Blood Culture - Preliminary Blood - Venous No growth after 24 hours. 02/21/23 00:21 Blood Culture - Preliminary Blood - Venous No growth after 24 hours. Assessment and Plan (1) Hypotension: Status: Acute (2) UTI (urinary tract infection): Status: Acute (3) S/P femoral-popliteal bypass surgery: Status: Acute (4) Anemia: Status: Acute Plan Patient is a 72-year-old male with a PMH significant for COPD, HTN, BPH, PAD s/p left fem-pop bypass on 12/29/2022, currently admitted to the hospital on postop day 1 after an elective placement of thrombolysis catheters for occluded left fem-pop.? Patient was initially in the ICU being monitored while being treated with tPA/heparin thrombolytics.?Patient was set to be discharged on Thursday02/20/2023 to short-term rehab, however was denied admission since patient left AMA from rehab last time.? Catheter directed thrombolysis Plan as per vascular surgery Anemia H&H of 6.6/20.4, down from 9.5/28.8 on 02/19/23 Patient has been hypotensive, complaining of some lightheadedness and dizziness with standing Physical exam relatively benign: some swelling and warmth in left leg from thigh to calf, but no ecchymosis for obviously palpable hematoma Most likely secondary to thrombolysis, per vascular surgery Patient will be transfused 2 units of PRBC Continue aspirin, Eliquis, per vascular surgery Follow CBC Hypotension Pt's BP was as low as 92/42 last night Pt complains of some lightheadedness and dizziness with standing Lactic acid was 0.5 Patient was given 1L IVF and will be receiving 2 units PRBC Continue close monitoring of BP UTI Pt's UA positive for UTI, positive for Gram-negative rods >100,000 Continue ceftriaxone, started 02/20/2023 Follow cultures Urinary retention, resovled Pt initially complained of morphine-induced urinary retention which resolved with switching to oxycodone Patient then complained of urinary retention during the night Pt no longer complaining of urinary retention, was able to void freely all night Likely secondary to UTI Continue oxycodone, ceftriaxone Bladder scan as necessary BPH Continue tamsulosin GERD Continue omeprazole Glaucoma Continue home eye drops Time Spent With Patient Time: Total time managing care of this patient today ____ minutes. Quality Stroke Does the patient have a stroke diagnosis?: No VTE Prior VTE?: No VTE Risk Level:: Medical - moderate - high VTE Device Contraindication: Treatment Not Indicated VTE Drug Contraindication: N/A - Med Ordered
[2023-02-22] MEDS: oxyCODONE HCl Immed Release 5 MG TABLET PO (20:28)
[2023-02-22] MEDS: Tamsulosin HCL 0.4 MG CAPSULE PO (20:28)
[2023-02-22] MEDS: traZODone HCL 100 MG TABLET PO (20:29)
[2023-02-22] MEDS: Dorzolamide/Timolo 2.23%/0.68% 10 ML DRBTL 1 DROP EYE-LEFT (20:29)
[2023-02-22] MEDS: Latanoprost 0.005 % Ophth Sol 2.5 ML DROPS 1 DROP EYE-BOTH (20:29)
[2023-02-22] MEDS: cefTRIAXone sodium 1 GM in 0.9 % Sodium Chloride 50 ML IV (23:54)
[2023-02-23 04:00] VITALS: BP 116/59; PULSE 89; RESP 14; TEMP 37.1; O2SAT 92
[2023-02-23 06:00] VITALS: BMI 21.6
[2023-02-23] MEDS: Omeprazole 20 MG CAPSULE.DR PO (06:20)
[2023-02-23 07:40] LABS: MANUAL DIFF FLAG NO
[2023-02-23 07:41] LABS: Basophils Percent Auto 0.2 % (0-2); Eosinophils Absolute Auto 0.2 X10*3/uL (0.0-0.4); Eosinophils Percent Auto 2.5 % (0-4); Hematocrit 27.4 % (42.0-52.0); Hemoglobin 9.3 g/dl (14.0-18.0); Imm Gran Abs Auto 0.03 X10*3/uL (0.00-0.03); Imm Gran Pct Auto 0.4 % (0.0-0.4); Lymphocytes Absolute Auto 0.8 X10*3/uL (1.2-4.9); Mean Corpuscular HGB Conc 33.9 g/dl (31.0-36.0); Mean Corpuscular Volume 88.4 fL (80.0-98.0); Mean Platelet Volume 8.6 fL (9.4-12.4); Monocytes Absolute Auto 0.8 X10*3/uL (0.1-1.2); Monocytes Percent Auto 9.5 % (2-11); Neutrophils Absolute Auto 6.4 x10*3/uL (2.0-8.3); Neutrophils Percent Auto 77.4 % (45-73); Platelet Count 186 X10*3/uL (160-400); Red Cell Distribution Width 14.1 % (11.0-16.0); White Blood Count 8.3 X10*3/uL (4.8-10.8)
[2023-02-23 07:48] VITALS: BP 119/59; PULSE 92; RESP 16; TEMP 36.9; O2SAT 92
--- NOTE | 2023-02-23 08:46 | W.MHC.F2F ---
Service Date Service Date: 02/23/23 Encounter Date of encounter: 02/23/23 Reasons for Services Signs and symptoms assessed: Patient is status post thrombolysis of fem-pop bypass. He has prior hip and knee issues. He has difficulty ambulating with steady gait. Will require home PT. He has full weight-bearing status. Reason for physical therapy: home safety and mobility and restore joint function Overseeing Care: Adria Albrecht Homebound: Leaving the home is medically contraindicated at this time without the asist of a device and/or another person due th the listed conditions above and below. Reason homebound: unsteady gait / fall risk and leg weakness Certification: Based on the above findings, I certify that this patient is confined to the home and needs intermittent senior care care, physical therapy and/or speech therapy, or continues to need occupational therapy. The patient is under my care, and I have initiated the establishment of the plan of care. The patient will be followed by a physician who will periodically review the plan of care. Time Spent With Patient Time: Total time managing care of this patient today __30__ minutes.
--- NOTE | 2023-02-23 08:48 | P.DS_ITS ---
DS: Providers Provider Date of Service: 02/23/23 Date of admission: 02/17/23 11:01 Primary care physician: Bobby Deleon MD Consults: 02/19/23 11:09 Consult to Hospitalist Routine Comment: Consulting Provider: Hospitalist Reason For Exam: Medical management DS: Diagnosis Discharge Diagnosis (1) Hypotension: Status: Acute (2) UTI (urinary tract infection): Status: Acute (3) S/P femoral-popliteal bypass surgery: Status: Acute (4) Anemia: Status: Acute DS: Summary Hospital Course Hospital Course: Patient had undergone fem-pop bypass nearly 2 months ago. He subsequently occluded the fem-pop bypass and was brought in for thrombolysis. He underwent thrombolytics with no post procedure issues in terms of his vascular status. [facility] Subsequent to that he had difficulty urinating and it was found that he did have a urinary tract infection and was treated for that. In addition he developed hip and knee joint stiffness. He had actually signed out rehab facility in the past and was unable to go back to acute rehab. He was observed in the hospital until it was thought he was be safe at home. He was sent home with home physical therapy via [facility]. At the time of discharge he had a palpable dorsalis pedis pulse. Time Spent with Patient Time attestation: Total time managing care of this patient today ____ minutes. Discharge coordination time: Greater than 30 minutes Quality: Safe Use of Opioids Does Pt have an Active Cancer Diagnosis on the Problem List?: No Quality: Stroke Does the patient have a stroke diagnosis?: No Physical Exam Vital Signs: Vital Signs: Last Vital Signs Temp 98.4 F 02/23/23 07:48 Pulse 92 02/23/23 07:48 Resp 16 02/23/23 07:48 BP 119/59 L 02/23/23 07:48 Pulse Ox 92 02/23/23 07:48 O2 Del Method Room Air 02/23/23 07:48 BMI result Body Mass Index 21.6 Const: General: cooperative, healthy appearing and no acute distress Orientation/consciousness: oriented to person, oriented to place and oriented to time HEENT: Head: Yes normal to inspection Neck: Carotids: no bruits Chest: Chest palpation & inspection: normal inspection of the chest Resp: Effort & Inspection: normal respiratory effort and able to speak in complete sentences Auscultation: clear to auscultation bilaterally Cardio: Other: Palpable left dorsalis pedis pulse Rate: regular rate Heart sounds: S1 normal heart sound present and S2 normal heart sound present GI: Inspection: Yes normal to inspection Skin: General skin exam: no rashes or lesions noted Wounds: no wounds Neuro: General: oriented to person, oriented to place, oriented to time and CN's II-XI intact bilaterally Extrem: General: Yes normal to inspection, Yes full ROM and Yes no clubbing, cyanosis or edema Psych: Appearance: grossly normal and well kempt Speech and movement: Normal speech and movement present Affect: normal affect DS: Data Data Completed and Pending Completed studies during hospitalization [Text1]: Procedures Bypass Left Femoral Artery to Popliteal Artery, Open Approach (12/29/22) Extirpation of Matter from Left Femoral Artery, Open Approach (12/29/22) Supplement Left Femoral Artery with Synthetic Substitute, Open Approach (12/29/22) Labs on day of discharge: Laboratory Results - last 24 hr 02/22/23 02/22/23 02/22/23 09:09 09:09 10:04 WBC 7.4 RBC 2.27 L D Hgb 6.6 L* D Hct 20.4 L* D MCV 89.9 MCH 29.1 MCHC 32.4 RDW 13.9 Plt Count 147 L MPV 8.9 L Immature Gran % (Auto) Neut % (Auto) Lymph % (Auto) Travis % (Auto) Eos % (Auto) Baso % (Auto) Lymph # (Auto) Travis # (Auto) Eos # (Auto) Baso # (Auto) Abs Immat Gran (auto) Absolute Neuts (auto) Absolute Nucleated RBC 0.000 Nucleated RBC % (auto) 0.0 Absolute Retic 0.050 Percent Retic 2.3 H Immature Retic Fraction 20.9 H Retic Hgb Equivalent 28.2 L Sodium 138 Potassium 4.2 Chloride 104 Carbon Dioxide 28 Anion Gap 10 L BUN 16 Creatinine 1.28 Estim Creat Clear Calc 55.4 Estimated GFR 55 Random Glucose 129 H Calcium 8.4 Lactate Dehydrogenase 102 L Blood Type O Positive Antibody Screen NEGATIVE BETTE, Polyspecific Positive BETTE Work-up Crossmatch See Detail 02/22/23 02/23/23 10:04 07:34 WBC 8.3 RBC 3.10 L D Hgb 9.3 L D Hct 27.4 L D MCV 88.4 MCH 30.0 MCHC 33.9 RDW 14.1 Plt Count 186 D MPV 8.6 L Immature Gran % (Auto) 0.4 Neut % (Auto) 77.4 H Lymph % (Auto) 10.0 L Travis % (Auto) 9.5 Eos % (Auto) 2.5 Baso % (Auto) 0.2 Lymph # (Auto) 0.8 L Travis # (Auto) 0.8 Eos # (Auto) 0.2 Baso # (Auto) 0.0 Abs Immat Gran (auto) 0.03 Absolute Neuts (auto) 6.4 Absolute Nucleated RBC 0.000 Nucleated RBC % (auto) 0.0 Absolute Retic Percent Retic Immature Retic Fraction Retic Hgb Equivalent Sodium Potassium Chloride Carbon Dioxide Anion Gap BUN Creatinine Estim Creat Clear Calc Estimated GFR Random Glucose Calcium Lactate Dehydrogenase Blood Type Antibody Screen BETTE, Polyspecific NEGATIVE Positive BETTE Work-up TNP Crossmatch Preliminary micro results at discharge 02/21/23 00:21 Blood Culture - Preliminary Blood - Venous No growth after 48 hours. 02/21/23 00:21 Blood Culture - Preliminary Blood - Venous No growth after 48 hours. Discharge Plan Discharge Anticipated Discharge Date/Time: 02/23/23 08:50 Patient Disposition: Home Health Service Discharge Diagnosis: Status post thrombolysis of fem-pop bypass Referrals: [facility] [Other] - 1 Week Bobby Deleon MD [Primary Care Provider] - 1 Week Discharge Medications: New Eliquis 2.5 mg tablet 2.5 mg PO BID Qty: 60 0RF levofloxacin 250 mg tablet 250 mg PO DAILY Qty: 3 0RF oxycodone-acetaminophen [Percocet] 5-325 mg tablet 1 tab PO Q8H PRN (Reason: pain) Qty: 20 0RF Rx Instructions: Partial Fill upon patient request. Continued latanoprost 0.005 % drops 1 drp ophthalmic (eye) BEDTIME Patient Comments: one drop each eye at bedtime dorzolamide-timolol 22.3-6.8 mg/mL Drops 1 drp ophthalmic-Left BID tamsulosin 0.4 mg capsule 0.4 mg PO QPM trazodone 100 mg tablet 100 mg PO BEDTIME omeprazole 20 mg capsule,delayed release(DR/EC) 20 mg PO DAILY Patient Comments: not taken daily, usually only every 3-4 days Discharge Orders: Discharge Order (Routine); Ordered 02/23/23 Ordered By: Adria Albrecht Diet: Advance to usual diet Activity on Discharge: As tolerated Stand Alone Forms: Patient Portal Discharge page Activity Restrictions/Additional Instructions: Skin glue was used and you may shower as early as tomorrow. Take it easy today and you may ambulate around the house. Within 24 hours you can resume normal activity You may climb a flight of stairs as tolerated Do not lift anything heavier than a gallon of milk. See Dr. Albrecht in follow-up in approximately 2 weeks time. You should already have an appointment if not please call my office at [phone] Please take Eliquis twice daily Percocet was prescribed for pain medication as needed. If not needed you can use Tylenol Please take levofloxacin for 3 additional days for your urinary tract infection Care Plan Goals: Ambulate better Health Concerns: Occluded fem-pop bypass - now open after thrombolysis. Plan of Treatment: Surveillance follow-up of bypass Assessment: Status post thrombolysis of fem-pop bypass
[2023-02-23] MEDS: Dorzolamide/Timolo 2.23%/0.68% 10 ML DRBTL 1 DROP EYE-LEFT (09:17)
[2023-02-23] MEDS: polyethylene glycoL 3350 17 GM POWD.PACK PO (09:17)
[2023-02-23] MEDS: Apixaban 2.5 MG TABLET PO (09:17)
[2023-02-23] MEDS: Aspirin 81 MG TAB.CHEW PO (09:17)
[2023-02-23] MEDS: 0.9 % Sodium Chloride Flush 3 ML SYRINGE IVFLUSH (09:17)
[2023-02-23 11:30] VITALS: BP 130/60; PULSE 79; RESP 15; TEMP 37.4; O2SAT 93
[2023-02-23 12:33] LABS: COVID-19 Test Negative (Negative); IDNOW Serial# 6674DD1D
--- NOTE | 2023-02-23 13:07 | PC.NURSE ---
Went to take patients IV out. Daughter at bedside, states he did not get lunch or washed up today. Educated I would have these two concerns addressed. SALES MANAGEMENT TRAINEE stated patient refused to get washed up when offered today. Will wash up before discharge. bookkeeping service sales agent stated he refused lunch, will obtain order.
[2023-02-24 11:48] LABS: Haptoglobin 346 mg/dL (43-212)
== END 2023-02-23 14:07 | disposition skilled nursing facility (03) | DRG 253 ==
LOC: HO.SSSA 11:02 → HO.ICU 11:02 → HO.S3 02-18 13:26
PROVIDERS: Hospitalist; Internal Medicine; Internal Medicine Pulmonary Disease; Student in an Organized Health Care Education/Training Program; Admitting Provider Surgery Vascular Surgery; PCP Internal Medicine; Visit Provider Surgery Vascular Surgery
PROC: 3E05317 Introduction of Other Thrombolytic into Peripheral Artery, Percutaneous Approach (ICD-10-PCS; principal; 2023-02-17 07:30)
PROC: 047 Lower Arteries, Dilation (ICD-10-PCS; principal; 2023-02-18 09:10)
DX: T82.392A Other mechanical complication of femoral arterial graft (bypass), initial encounter (principal); N39.0 Urinary tract infection, site not specified; N40.0 Benign prostatic hyperplasia without lower urinary tract symptoms; I70.302 Unspecified atherosclerosis of unspecified type of bypass graft(s) of the extremities, left leg; K21.9 Gastro-esophageal reflux disease without esophagitis; R33.0 Drug induced retention of urine; T40.2X5A Adverse effect of other opioids, initial encounter; H40.9 Unspecified glaucoma; I95.81 Postprocedural hypotension; Y83.8 Other surgical procedures as the cause of abnormal reaction of the patient, or of later complication, without mention of misadventure at the time of the procedure; Y71.1 Therapeutic (nonsurgical) and rehabilitative cardiovascular devices associated with adverse incidents; J44.9 Chronic obstructive pulmonary disease, unspecified; Z20.822 Contact with and (suspected) exposure to COVID-19; Z87.891 Personal history of nicotine dependence; Z79.899 Other long term (current) drug therapy
CPT/HCPCS: 36415; 37184; 37214; 37224; 75898; 76937; 80048; 81001; 82040; 82803; 83010; 83605; 83615; 83735; 84100; 85025; 85027; 85045; 85384; 85610; 85730; 86850; 86880; 86900; 86901; 86923; 87040; 87086; 87088; 87186; 87635; 97162; 99152; 99153; 99212; C1725; C1751; C1757; C1760; C1769; C1887; C1894; J0696; J1643; J2250; J2270; J2997; J3010; P9016; Q9967

== ENCOUNTER → 2023-03-12 15:19 | Outpatient (BNVA) | payer BC, SELFPAY | PROVIDERS: PCP Internal Medicine; Visit Provider Surgery Vascular Surgery ==

== ENCOUNTER 2023-04-15 10:48 | Outpatient (REF) | payer BC, SELFPAY ==
[2023-04-15 13:35] LABS: MANUAL DIFF FLAG NO
[2023-04-15 14:13] LABS: Alanine Aminotransferase 11 U/L (0-40); Albumin Level 3.8 g/dL (3.5-5.0); Alkaline Phosphatase 90 U/L (39-117); Anion Gap 11 (12-20); Aspartate Amino Transferase 15 U/L (5-37); Basophils Percent Auto 0.7 % (0-2); Bilirubin Total 0.5 mg/dL (0.0-1.0); Blood Urea Nitrogen 22 mg/dL (9-16); Calcium 10.3 mg/dL (8.4-10.2); Carbon Dioxide 28 mmol/L (22-29); Chloride 105 mmol/L (96-108); Eosinophils Absolute Auto 0.3 X10*3/uL (0.0-0.4); Eosinophils Percent Auto 4.4 % (0-4); Estimated Glomerular Filt Rate 50; Glucose Random 100 mg/dL (60-115); Hematocrit 41.6 % (42.0-52.0); Hemoglobin 13.3 g/dl (14.0-18.0); Imm Gran Abs Auto 0.02 X10*3/uL (0.00-0.03); Imm Gran Pct Auto 0.3 % (0.0-0.4); Iron 75 mcg/dL (45-160); Lymphocytes Absolute Auto 1.2 X10*3/uL (1.2-4.9); Lymphocytes Percent Auto 19.9 % (20-40); Mean Corpuscular Hemoglobin 29.4 pg (27.0-33.0); Mean Corpuscular Volume 91.8 fL (80.0-98.0); Mean Platelet Volume 9.9 fL (9.4-12.4); Monocytes Absolute Auto 0.5 X10*3/uL (0.1-1.2); Monocytes Percent Auto 9.1 % (2-11); Neutrophils Absolute Auto 3.9 x10*3/uL (2.0-8.3); Neutrophils Percent Auto 65.6 % (45-73); Percent Iron Saturation 36 % (15-50); Platelet Count 173 X10*3/uL (160-400); Potassium 4.3 mmol/L (3.3-5.1); Red Blood Count 4.53 X10*6/uL (4.60-5.80); Red Cell Distribution Width 14.6 % (11.0-16.0); Sodium 140 mmol/L (135-145); Total Iron Binding Capacity 208 mcg/dL (228-428); Total Protein 7.1 g/dL (6.5-8.0); Unsaturated Iron Binding 133 ug/dL; White Blood Count 5.9 X10*3/uL (4.8-10.8)
== END 2023-04-15 10:49 | disposition home or self-care (01) ==
LOC: HO.10HDL 10:48
PROVIDERS: Visit Provider Internal Medicine
DX: D64.9 Anemia, unspecified (principal); J44.9 Chronic obstructive pulmonary disease, unspecified; I73.9 Peripheral vascular disease, unspecified
CPT/HCPCS: 36415; 80053; 83540; 85025

== ENCOUNTER 2023-06-16 13:46 | Outpatient (REF) | payer BC, SELFPAY ==
--- NOTE | ~2023-06-16 | US_ITS ---
EXAMINATION: ARTERIAL DUPLEX LEFT LEG CLINICAL INFORMATION: Peripheral vascular disease with suspected left bypass graft occlusion. COMPARISON: Arterial duplex 02/13/2023. TECHNIQUE: Duplex Doppler of the left lower extremity arterial system was performed. FINDINGS: LEFT: Common femoral: PSV 116 cm/s. Physiologic monophasic waveform. Deep femoral: PSV 123 cm/s. Triphasic waveform. Proximal superficial femoral: Chronically occluded. Mid superficial femoral: Chronically occluded Distal superficial femoral: Chronically occluded. Femoral graft inflow: PSV 119 cm/s. Biphasic waveform. Proximal anastomosis: PSV 51 cm/s. Abnormal waveform consistent with distal occlusion. Proximal graft: Occluded. Mid graft: Occluded. Distal graft: Occluded. Distal anastomosis: Occluded. Popliteal: PSV 89 cm/s. Monophasic waveform. Posterior tibial: PSV 17 cm/s. Monophasic waveform. Peroneal: PSV 26 cm/s. Monophasic waveform. Anterior tibial: 17 cm/s. Monophasic waveform. US/US arterial duplex LE LT IMPRESSION: Occluded ho-chunk SFA. Occluded bypass graft. Monophasic waveforms in the popliteal, posterior tibial, anterior tibial and peroneal arteries.
== END 2023-06-16 13:47 | disposition home or self-care (01) ==
LOC: HO.US 13:46
PROVIDERS: PCP Internal Medicine; Visit Provider Surgery Vascular Surgery
DX: I73.9 Peripheral vascular disease, unspecified (principal)
CPT/HCPCS: 93926

== ENCOUNTER 2023-06-16 14:35 | Outpatient (AMB) | payer BC, SELFPAY ==
--- NOTE | 2023-06-16 14:35 | A.OFFVIS_ITS ---
Intake Vital Signs 06/16/23 14:36 Height 6 ft 1 in Weight 163 lb BMI 21.5 Intake Visit Reasons: Leg Check Intake Note: Add-on for leg pain similar to when pt had an occlusion s/p Left fem-pop bypass 12/25 and redo 02/17/23 and thrombectomy 02/18/23. Pt states he walks daily and when walking today had left leg pain, was sent for urgent Arterial US of Left LE 06/16/23 Accompanied by: Self / Same As Patient Allergies morphine Adverse Reaction (Unknown, Verified 06/16/23 14:38) Unknown HPI Leg Check HPI Details Very pleasant 72-year-old gentleman presents for follow-up regarding peripheral vascular disease. Had prior fem-pop bypass dating back to 12/29/2022. He had been doing fairly well with that. On February 17 he presented back with an occlusion. He underwent subsequent thrombolysis in opening. He had been doing well until 2 days ago. He had been out golfing and felt a tightening of his left lower extremity. It felt like it was the occlusion he had prior. He call the office in subsequently underwent any emergent ultrasound. He now presents to us for vascular follow-up. [facility] Medical History History of femoral angiogram Glaucoma BPH (benign prostatic hyperplasia) GERD (gastroesophageal reflux disease) COPD (chronic obstructive pulmonary disease) Surgical History Hx of total knee replacement Hx of bilateral hip replacements Status post right rotator cuff repair Hx of knee surgery History of back surgery Hx of colonoscopy Social History Household Members: None Housing: Condominium Are you a primary career services officer to a significant other at home: No Do you presently have visiting nurse or other home services: No Patient Tobacco Use Status: Former Tobacco user Tobacco use type: Cigarette Cigarettes Per Day: 4 Years Smoked: 50 Second Hand Smoke Exposure: No service: No Current occupational status: unemployed Review of Systems Const All systems reviewed & are unremarkable except as noted in HPI and below Reports no additional complaints ENT Reports Normal hearing present Card Denies chest pain, Denies chest pain at rest, Denies chest pain with activity and Denies pedal edema Resp Denies cough GI Denies abdominal pain Musc Denies abnormal gait, Denies muscle cramps and Denies radiating pain into limb Skin/Breast Denies skin ulcer and Denies wounds Neuro Reports Normal hearing present and Denies abnormal gait Psych Reports no additional complaints Physical Exam Vital Signs: BMI result Body Mass Index 21.5 Const General: cooperative, healthy appearing and comfortable Orientation/consciousness: oriented to person, oriented to place and oriented to time HEENT Head: Yes normal to inspection Neck Neck: Yes normal visual inspection Carotids: no bruits Chest Chest palpation & inspection: normal inspection of the chest Resp Effort & Inspection: normal respiratory effort and able to speak in complete sentences Auscultation: clear to auscultation bilaterally, no crackles, no rales, no rhonchi and no wheezes Cardio Other: Bilateral DP signals, motor and sensation intact in bilateral lower extremities Rate: regular rate Rhythm: regular rhythm Heart sounds: S1 normal heart sound present and S2 normal heart sound present Bruits: no carotid bruits Peripheral pulses: Peripheral pulses 2+ throughout GI Inspection: Yes normal to inspection Skin Wounds: no wounds Hair: normal Neuro General: oriented to person, oriented to place and oriented to time Cranial nerves: Yes CN's II-XII intact bilaterally and Yes Normal hearing present Cognition (Neuro): normal cognition Motor exam (neuro): 5/5 motor strength present throughout Extrem Other: venous exam: No significant superficial varicosities or spider telangiectasias, minimal edema General: No clubbing, No cyanosis and No edema Psych Appearance: grossly normal Mental Status: mental status grossly normal Speech and movement: Normal speech and movement present Results Reviewed Results Reviewed: Ultrasound reviewed and preliminary report demonstrates occlusion Assessment & Plan Assessment & Plan (1) PAD (peripheral artery disease): Comment: 12/29/2022 - left femoral to above knee popliteal bypass 02/18/2023 - left lower extremity thrombolysis Code(s): I73.9 - Peripheral vascular disease, unspecified Plan: In short patient has occluded fem-pop bypass. This is the 2nd time and has gone on to occlude. I do believe he has significant behind knee popliteal disease which was evident last time. He will need a new bypass. This was discussed in detail with the patient. He would like to hold off. He was anxious and eager to go on vacation down to [place]. I did feel that it was safe for him to go on the trip P does know of his occlusion. We will revisit this when he returns from his vacation. Thank you for allowing us to assist in his care. If there are any questions or concerns please do not hesitate to contact us. Orders: Orders US arterial duplex LE BI 3 Months I73.9 - Peripheral vascular disease, unspecified Coding Level of Care Code Est Pt Level 4 (64209) Diagnoses PAD (peripheral artery disease) I73.9
[2023-06-16 14:36] VITALS: BMI 21.5
== END 2023-06-16 15:00 | disposition home or self-care (01) ==
PROVIDERS: PCP Internal Medicine; Visit Provider Surgery Vascular Surgery
DX: I73.9 Peripheral vascular disease, unspecified (principal)
CPT/HCPCS: 99214

== ENCOUNTER 2023-12-17 08:42 | Outpatient (REF) | payer BC, SELFPAY ==
--- NOTE | 2023-12-17 08:46 | EMG_ITS ---
Right tibial and peroneal motor studies were performed. Right superficial peroneal, sural, and median and lateral plantar sensory studies were performed. Tibial H-reflex was obtained and needle examination was performed. 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 There was no evidence of acute radiculopathy. MD JAUN Escoto/SO / [id number]
== END 2023-12-17 08:43 | disposition home or self-care (01) ==
LOC: HO.NEURO 08:42
PROVIDERS: PCP Internal Medicine; Visit Provider Internal Medicine
DX: G60.9 Hereditary and idiopathic neuropathy, unspecified (principal); R20.0 Anesthesia of skin
CPT/HCPCS: 95886; 95910

== ENCOUNTER 2024-11-03 11:43 | Outpatient (REF) | payer BC, SELFPAY ==
[2024-11-03 12:03] LABS: MANUAL DIFF FLAG NO
[2024-11-03 12:18] LABS: Basophils Percent Auto 0.7 % (0-2); Eosinophils Absolute Auto 0.1 X10*3/uL (0.0-0.4); Eosinophils Percent Auto 2.4 % (0-4); Hematocrit 40.2 % (42.0-52.0); Hemoglobin 13.1 g/dl (14.0-18.0); Imm Gran Abs Auto 0.01 X10*3/uL (0.00-0.03); Imm Gran Pct Auto 0.2 % (0.0-0.4); Lymphocytes Absolute Auto 1.4 X10*3/uL (1.2-4.9); Lymphocytes Percent Auto 23.5 % (20-40); Mean Corpuscular HGB Conc 32.6 g/dl (31.0-36.0); Mean Corpuscular Hemoglobin 29.5 pg (27.0-33.0); Mean Corpuscular Volume 90.5 fL (80.0-98.0); Monocytes Absolute Auto 0.5 X10*3/uL (0.1-1.2); Monocytes Percent Auto 8.3 % (2-11); Neutrophils Absolute Auto 3.9 x10*3/uL (2.0-8.3); Neutrophils Percent Auto 64.9 % (45-73); Platelet Count 201 X10*3/uL (160-400); Red Blood Count 4.44 X10*6/uL (4.60-5.80); Red Cell Distribution Width 14.6 % (11.0-16.0); White Blood Count 5.9 X10*3/uL (4.8-10.8)
[2024-11-03 13:06] LABS: Alanine Aminotransferase 12 U/L (0-40); Albumin Level 4.1 g/dL (3.5-5.0); Alkaline Phosphatase 79 U/L (39-117); Anion Gap 11 (12-20); Aspartate Amino Transferase 23 U/L (5-37); Bilirubin Total 0.5 mg/dL (0.0-1.0); Blood Urea Nitrogen 22 mg/dL (9-16); Calcium 9.3 mg/dL (8.4-10.2); Carbon Dioxide 28 mmol/L (22-29); Chloride 105 mmol/L (96-108); Estimated Glomerular Filt Rate > 60; Glucose Random 91 mg/dL (60-115); Potassium 3.8 mmol/L (3.3-5.1); Sodium 140 mmol/L (135-145); Total Protein 7.7 g/dL (6.5-8.0)
--- OUTSIDE RECORDS SUMMARY | 2024-11-03 15:38 | XMS_ITS | Encounter Summary ---
Author Name [facility] [place] [facility] [place] Address [address] [place] [address] Care Team Providers Care Projector Operator Name Role Phone ESTELLA JUNIOR Primary Care Provider Unavailabl e Insurance Providers: All historical and current Section Date Range: From patient's date of to the date document was created. This section includes the names of all active insurance providers for the patient. Insurance Provider Type of Coverage Plan Name Start of Policy Coverage End of Policy Coverage Group Number Member ID Insurance Provider's Telephone Number Policy Hilario's Name Patient's Relationship to Policy Hilario BCBS [place] F[place] PREFERRED PROVIDER ORGANIZAT ION (PPO) PSHB BASIC SELF Oct 05, 2024 [id number] PAM, GERARDO PATIENT MEDICARE (WNR) MEDICARE (M) PART A Jun 05, 2016 PART A [id number] PAM, GERARDO PATIENT MEDICARE (WNR) MEDICARE (M) PART A Jun 05, 2016 PART A [id number] GERARDO OROZCO PATIENT Selected Encounter This section includes the information on record at [place] for the Encounter. Date/Time Encounter Type Encounter Description Reason Provider Source February 08, 2024 09:47 AM QNHP OL DIG ASSMT&MGMT 21+ PULMONARY/CHEST ICD-10-CM Z12.2 Encntr screen for malignant neoplasm of respiratory organs ИВАН MARIE IHDom Encounter Template Text not used by [place] Assessments - Encounter Diagnoses This section includes the primary and secondary diagnoses documented for the Encounter. Date/Time Primary/Secondary Diagnosis Diagnosis Name Provider Source February 08, 2024 09:55 AM PRIMARY Encntr screen for malignant neoplasm of respiratory organs ИВАН MARIE [place] [facility] [place] [facility] Plan of Treatment: Future Appointments (+ 6 months) and Future Tests (+/- 45 days) The Plan of Treatment section includes future care activities for the patient from all [place] treatmentfacilities. This section includes future appointments and future orders which are active, pending or scheduled. Future Appointments This section includes appointments that were scheduled to occur 6 months from the date of the Encounter, up to a maximum of 20 appointments. The data comes from all [place] treatment facilities. Appointment Date/Time Appointment Type Appointme nt Facility Name February 09, 2024 01:00 PM [facility] Aug 01, 2024 08:30 AM AMBULATORY - MEDICINE [facility] Social History: Smoking Status (Most current) and Tobacco Use (All prior to encounter date) This section includes the most current, and the historical, smoking and tobacco- related health factors from the [place] facility where the Encounter took place. Current Smoking Status This section includes the most current smoking, or tobacco-related health factor, from the [place] facility where the Encounter took place. Date/Time Current Smoking Status Comment Teri ity Aug 06, 2023 08:50 AM VA-TOBACCO DOESNT USE WI 30 MIN [facility] Tobacco Use History This section includes a history of the smoking, or tobacco-related health factors, that were collected on or before the date of the Encounter. The data comes from the [place] facility where the Encounter took place. Date/Time Smoking Status/Tobacco Use Comment F acility Aug 06, 2023 08:50 AM VA-TOBACCO USE 30 YEARS OR MORE [place] [facility] [place] [facility] Aug 06, 2023 08:50 AM VA-TOBACCO USE ADVICE [place] [facility] [place] [facility] Aug 06, 2023 08:50 AM VA-TOBACCO USE ELECTRICAL TROUBLESHOOTER NO [place] [facility] [place] [facility] Aug 06, 2023 08:50 AM VA-TOBACCO USE MED NO [place] [facility] [place] [facility] Aug 06, 2023 08:50 AM VA-TOBACCO USER SOME DAYS [facility] Radiology Reports: +/- 30 days of the encounter Radiology Reports For cases when an order for radiology services may have been completed prior to the date of the Encounter, the report list includes the Radiology Reports that were completed up to 30 days before dateof the Encounter. For cases when an order for radiology services may have been completed after the date of the Encounter, the report list also includes the Radiology Reports that were completed up to30 days after date of the Encounter. The data comes from all [place] treatment facilities. Date/Time Radiology Report Provider Source February 09, 2024 01:16 PM LDCT LUNG CANCER SCREENING: GERARDO OROZCO Neris [id number] -[id number] M Exm Date: FEBRUARY 09, 2024@13:16 Req Phys: ESTELLA JUNIOR Loc: CWM/NO/LCS CHART CONSULT (Req' Img Loc: NHM/CT Service: Unknown [facility] , (Case [id number] COMPLETE) LDCT LUNG CANCER SCREENING (CT Detailed) CPT:98367 Reason for Study: Lung Cancer Screening Clinical History: 51 TPY Quit 2022 Medical Hx: Emphysema, GERD, CKD, hx of malignant basal cell neoplasm of skin. Family hx malignancy: Sister survivor of Breast cancer. Comparison: CT Thorax 01/29/23, 01/29/22, 12/24/20 Report Status: Verified Date Reported: FEBRUARY 09, 2024 Date Verified: FEBRUARY 09, 2024 Building Architectural Designer E-Sig:/ES/LENCHO WALTON JR Report: Study: Lung cancer screening CT of the chest. Provided History: Lung cancer screening. Comparison: CT scan of the chest from January 29, 2023, January 29, 2022 and December 24, 2020. Technique: 1 mm lung algorithm and 3 mm soft tissue algorithm axial reconstructions from the lung apices through the lung bases without the administration of intravenous contrast as per standard department protocol for lung cancer screening. Subsequently, sagittal and coronal reformats were generated. MIP images also provided and reviewed. Secondary computer-aided detection with post-processing from [employer] is used. The lack of intravenous contrast inherently limits the evaluation of hilar structures, vascular structures, and abnormal enhancement patterns. Lower than standard dose was utilized limiting sensitivity for fine parenchymal detail. Dose Parameters: CTDI(vol): 2.1 mGy. DLP: 83.7 mGy*cm. Findings: Lungs: Emphysema: Mild centrilobular and paraseptal emphysematous changes are again seen with associated scattered parenchymal scarring. Index Nodule: None. Other Nodules: None. Lungs/airway findings: No acute pulmonary process or pleural effusion is identified. There are mild dependent changes present at the lung bases. Small amount of mucus debris at the tracheal emma. Otherwise, the tracheobronchial tree is patent and normal. Heart, mediastinum and lymph nodes: The heart size is normal. No pericardial effusion identified. Normal caliber thoracic aorta. No mediastinal or hilar lymphadenopathy by size criteria. No axillary lymphadenopathy by size criteria. Normal caliber pulmonary arteries. Mild symmetric gynecomastia changes are stable. Visualized coronary artery calcifications: Atherosclerotic changes of the aorta and coronary arteries. Upper abdomen: Cholelithiasis again seen. Duodenal diverticulum. Bones and soft tissues: Normal age-related degenerative changes present. No acute bony abnormality identified. Other findings: None. Impression: No new abnormality identified. Lung-RADS Assessment: Category 1, Negative. Recommendation: Continue annual screening with lung cancer screening CT in 12 months. Other Significant Findings and Recommendations: None. Primary Diagnostic Code: No immediate attention required Secondary Diagnostic Codes: LUNGRADS 1: NEGATIVE Primary Interpreting Staff: LENCHO WALTON JR, Radiologist (Building Architectural Designer) /LENCHO GARCIA JR [facility] Encounter Notes: All associated encounter notes This section contains the clinical notes associated to the Encounter. Date/Time Encounter Note(s) Provider Source February 08, 2024 09:47 AM PREVENTIVE MEDICINE RISK ASSESSMENT SCREENING NOTE: LOCAL TITLE: LUNG CANCER SCREENING DOCUMENTATION STANDARD TITLE: PREVENTIVE MEDICINE RISK ASSESSMENT SCREENING NO DATE OF NOTE: FEBRUARY 08, 2024@09:47 ENTRY DATE: FEBRUARY 08, 2024@09:47:42 AUTHOR: CRISTOFER MARIE COSIGNER: URGENCY: STATUS: COMPLETED This documentation serves to update the [facility] clinical reminder based on 's smoking history report during LCS outreach call. Acton reports started smoking at age 23 while in the service, on average about 1 pack/day. He also notes he had quit a few times, reports at one time quit for 9 months, but then started up again. Reports he Quit cold turkey in 2022, but notes every once in a while if he has a bad day will smoke some cigarettes, but this is not often. Patient used cigarettes in the past, but quit and does not currently use them: Quit smoking LESS THAN 15 years. Year the patient quit smoking: Date: 2022 ? Exact date is unknown How many years has the patient smoked? # of years 50 Average number of packs/day over the entire time patient smoked: Packs/day 1 This documentation serves to satisfy the Initial provider clinical reminder for LCS in the absence of prior completion, with LCS LDCT ordered: No clinical exclusions, patient is a current candidate for the lung cancer screening program. Patient agrees to lung cancer screening. Lung cancer screening information provided and low dose CT will be ordered. LUNG CANCER SCREENING PROGRAM [facility] Chart review completed by [facility] LCS Program. Information provided in this documentation is obtained from source documents within the Veterans personal electronic health record and directly from the through LCS Coorinator outreach in an effort to confirm eligibility for Lung Cancer Screening. LCS Coordinator outreach attempt, successful. Engaged in a shared decision making conversation with the Acton discussing rationale, risks and benefits for Lung Cancer Screening. Veterean agrees to LCS. PCP: Estella Junior WEATHERIZATION INSTALLER. 73 year old Acton seen in clinic by PCPVernon on 02/04/24. Lung Cancer Screening provider clinical reminder completed, patient meets USPSTF criteria for Lung Cancer Screening: Age 50-80, minimum 20 pack year history of smoking cigarettes, currently smoking or quit within the past 15 years. Acton scheduled 02/09/24 Cigarette Smoking Hx: 51 TPY (1 pack/day for 50 years) Smoking Status: Quit 2022 (notes he occasionally smokes a cigarette when he has a bad/off day) Referral to Tobacco Cessation Program: N/A Active Problem Lumbar spinal stenosis M99.53 02/07/2024 ESTELLA JUNIOR Peripheral neuropathy G61.82 02/07/2024 ESTELLA JUNIOR Peripheral vascular disease I73.9 08/06/2023 ESTELLA JUNIOR Former smoker Z87.891 08/06/2023 ESTELLA JUNIOR Benign prostatic hypertrophy N40.0 08/06/2023 ESTELLA JUNIOR History of malignant basal cell fredo 08/06/2023 VERNON,ESTELLA C Persistent insomnia G47.09 08/06/2023 ESTELLA JUNIOR Glaucoma H40.9 08/06/2023 ESTELLA JUNIOR History of LASIK - laser assisted i 08/06/2023 ESTELLA JUNIOR Pulmonary emphysema J43.9 08/06/2023 JOHN GALINDO Long-term current use of anticoagul 02/04/2024 JUANISRODERICKA Gastroesophageal reflux disease K21 09/12/2019 YOU JAMA Chronic kidney disease stage 3A N18 08/06/2023 ESTELLA JUNIOR History of major orthopaedic surger 08/06/2023 ESTELLA JUNIOR Arthritis M17.9 09/12/2019 YOU JAMA Clinically Relevant: Emphysema, GERD, CKD stage 3A, 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 Active Outpatient Medications (including Supplies): Active Outpatient Medications Status 1) LATANOPROST 0.005% OPH SOLN INSTILL 1 DROP INTO EACH ACTIVE EYE ONCE DAILY FOR INCREASED PRESSURE IN THE EYE 2) OMEPRAZOLE 20MG EC CAP TAKE ONE CAPSULE BY MOUTH ACTIVE EVERY MORNING 30 MINUTES BEFORE BREAKFAST FOR GASTROESOPHAGEAL REFLUX DISEASE 3) TAMSULOSIN HCL 0.4MG CAP TAKE ONE CAPSULE BY MOUTH AT ACTIVE BEDTIME FOR ENLARGED PROSTATE 4) TRAZODONE HCL 100MG TAB TAKE ONE TABLET BY MOUTH AT HOLD BEDTIME FOR INSOMNIA Active Non-VA Medications Status 1) Non-VA ASPIRIN 81MG EC TAB 81MG BY MOUTH ONCE DAILY ACTIVE 5 Total Medications IMAGING STUDIES: IP - Imaging Profile 01/29/2023 CT THORAX W/O CONT CPT Code: 51324 Interpreting Staff: RADIOLOGY,OUTSIDE Exam Case Number: [id number] Exam Status: COMPLETE Rpt Status: VERIFIED Technologist: SANTIAGO MCCURDY Reason for Study: lung nodule Report: CT THORAX W/O CONT HISTORY: lung nodule COMPARISON: Chest CT dated 12/29/2021 TECHNIQUE: Helical CT of the chest, with multiplanar reformats including maximum intensity projection (MIP) reconstructions, was performed at the local [place] facility. 1466 images were received by the [place] National T[facility] Program (NTP) for interpretation. RADIATION DOSE (mGy*cm): 76.8. IV CONTRAST: Not administered. FINDINGS: Lower Neck: Unremarkable. Airways: Patent. The previously described 3 mm endobronchial nodular opacity in the anterior left upper lobe bronchus is not clearly delineated and, therefore, may have represented secretions/mucous. Lungs: Mild paraseptal and centrilobular emphysematous changes are again appreciated. Pleura: No pleural effusion or pneumothorax. Mediastinum: Normal heart size. Mild coronary artery calcifications. No pericardial effusion. Great Vessels: Normal caliber of the thoracic aorta. Moderate atherosclerotic calcification. Normal caliber of the main pulmonary artery. Lymph Nodes: No obvious significant mediastinal, axillary or supraclavicular lymphadenopathy. Evaluation of hilar lymph nodes is limited without intravenous contrast. Upper Abdomen: Redemonstration of partially imaged cholelithiasis. Chest Wall: Mild bilateral gynecomastia. Bones: Diffuse osteopenia and degenerative changes. Impression: No acute abnormality is identified. READING PHYSICIAN: Marianne Walters MD -[id number] 01/29/2023 10:20 [facility] National Teleradiology Program [phone] (For Medical Practitioner Use Only) Attention Patients / Veterans: If you have questions or concerns about these test results, please contact your ordering provider or primary care team. DX Codes: NO ALERT REQUIRED 01/29/2022 CT THORAX W/O CONT CPT Code: 03879 Interpreting Staff: RADIOLOGY,OUTSIDE Exam Case Number: [id number] Exam Status: COMPLETE Rpt Status: VERIFIED Technologist: TERRI WESTBROOK Reason for Study: lung nodule Report: EXAMINATION: CT THORAX W/O CONT Impression: 3 mm endobronchial nodule noted in the anterior left upper lobe bronchus. CLINICAL INDICATION: lung nodule TECHNIQUE: CT of the thorax was performed after administration of contrast. 1314 images were received by the [place] National Telerad[facility] (NTP) for interpretation. IV CONTRAST: None, Volume (mL): None RADIATION DOSE (mGy*cm): 92.3 COMPARISON: 12/24/2020. INTERPRETATION: CLIENT TECHNICAL SUPPORT ASSOCIATE: No additional findings. AIRWAYS, LUNGS AND PLEURA: The central tracheobronchial tree is patent. The lungs are clear. There is no pleural effusion. There is no pneumothorax. 3 mm (8/196) endobronchial nodule opacity noted in the anterior left upper lobe bronchi. Mild upper lobe predominant paraseptal emphysematous changes. MEDIASTINUM: There are no enlarged mediastinal, hilar or axillary lymph nodes. The visualized portion of the thyroid gland is unremarkable. HEART AND VESSELS: The heart is normal in size. There are coronary artery and aortic calcifications. There is no pericardial effusion. UPPER ABDOMEN: Images of the upper abdomen demonstrate cholelithiasis. Duodenal diverticulum. Mild atrophy of the pancreas.. BONES AND SOFT TISSUES: There are mild degenerative changes of the spine. The soft tissues are unremarkable. TUBES AND LINES: None. READING PHYSICIAN: Tacos Mccrary M.D. -[id number] 01/30/2022 18:48 EDT [facility] National Teleradiology Program [phone] (For Medical Practitioner Use Only) [address] [place] [address], [address] [place] [address] Attention Patients / Veterans: If you have questions or concerns about these test results, please contact your ordering provider or primary care team. DX Codes: NO ALERT REQUIRED 12/24/2020 CT THORAX W/O CONT CPT Code: 57331 Interpreting Staff: LENIN JOHNSON Exam Case Number: [id number] Exam Status: COMPLETE Rpt Status: VERIFIED Technologist: TERRI WESTBROOK Reason for Study: lung nodules Report: EXAM: CT chest without contrast HISTORY: Look for cancer COMPARISON: None TECHNIQUE: Noncontrast helical CT thorax from the thoracic inlet to the upper abdomen. Multiplanar reformats and the Tomogram were reviewed. [facility] nodule detection series was included. DOSE: Information is available in the PACS system. FINDINGS: LUNGS AND AIRWAYS: The trachea and mainstem bronchi are patent. Minor scarring or subsegmental atelectasis in each lung. No lung consolidation. No suspicious lung nodules. PLEURAL SPACES: No pleural effusion. No pneumothorax. MEDIASTINUM: Normal heart size.No significant pericardial effusion.Normal caliber great vessels. Mild scattered arterial vascular calcifications, including coronary artery. No suspicious mediastinal, hilar, or axillary lymphadenopathy. LIMITED UPPER ABDOMINAL IMAGING: ADRENALS: No suspicious abnormality. Incidental:. Cholelithiasis. Medial wall duodenal diverticulum noted incidentally. BONES: No acute changes. Impression: 1. No suspicious lung nodules. 2. Cholelithiasis. DX Codes: No immediate attention required Pulmonary Medicine Provider: N/A PFTS: No prior PFTS per chart review. TTE: No prior TTE per chart review. Pathology: No pathology on file for per chart review. Personal History of Malignancy: Family History of Malignancy: History of malignant basal cell neoplasm of the scalp, treated by outside molded parts inspector, Acton reports s/p Mohs, per was about 3 ? 4 years ago. Toxic Exposure History: Sister: Survivor of Breast Cancer, dx in her late 40's. LCS welcome letter and educational materials will be mailed to Veterans address on file. Chart review for administrative purposes only. /yoon/ VERA RICHARD,RN. LUNG CANCER SCREENING NURSE Signed: 02/08/2024 09:55 Receipt Acknowledged By: 02/08/2024 10:39 /yoon/ EBENEZER CARRION CERTIFIED NURSE PRACTITIONER CRISTOFER MARIE [place] [facility]
--- OUTSIDE RECORDS SUMMARY | 2024-11-03 15:38 | XMS_ITS | Continuity of Care Document ---
Author Name [facility] Organization [facility] Care Team Providers Care Compensation Consulting Manager Name Role Phone [facility] Unavailable Unavailable Problems Combined list of problems from Department of Defense and Veterans Affairs facilities. It does not include entries that were removed or entered in error. Problem Status Onset Date Problem Type Date of Resolution Comments Source History of LASIK - laser assisted in situ keratomileusis Active 008 Condition [facility] History of major orthopaedic surgery Active 008 Condition Aug 06, 2023 Entered By: ESTELLA JUNIOR Comment: Right TKANov 2022 Entered By: ESTELLA JUNIOR Comment: Left THANov 2022 Entered By: ESTELLA JUNIOR Comment: Left rotator cuff repair [facility] R.knee posttraumatic arthritis Inactive 974 Condition 08/06/2023 May 27, 2013 Entered By: LUIS F MORATAYA Comment: joint replacement Right knee 2010-Ok results [place] Arthritis Active Condition May 27 Entered By: LUIS F MORATAYA Comment: left 3rd finger [facility] Benign prostatic hypertrophy Active Condition Aug 01, 2024 Entered By: ESTELLA JUNIOR Comment: stopped taking Rx, asymptomatic [facility] Chronic kidney disease stage 3A Active Condition [facility] Gastroesophageal reflux disease Active Condition [facility] Glaucoma Active Condition Aug 06 Entered By: ESTELLA JUNIOR Comment: OU - followed by Ophthamology [facility] History of malignant basal cell neoplasm of skin Active Condition Aug 06, 2023 Entered By: ESTELLA JUNIOR Comment: scalpAug 01, 2024 Entered By: ESTELLA JUNIOR Comment: 3 lesions RLE - Moh's procedure 08/2024 [facility] Lumbar spinal stenosis Active Condition [facility] Nicotine dependence Active Condition Aug 01, 2024 Entered By: ESTELLA JUNIOR Comment: quit smoking 12/2022 - restarted smoking 06/2023 [facility] Peripheral neuropathy Active Condition [facility] Peripheral vascular disease Active Condition Aug 06 Entered By: ESTELLA JUNIOR Comment: 12/2022 arterial occlusion LLE, s/p fem-popNov 2022 Entered By: ESTELLA JUNIOR Comment: LLE DVT, s/p thrombolysis [facility] Persistent insomnia Active Condition [facility] Pulmonary emphysema Active Condition Aug 01, 2024 Entered By: ESTELLA JUNIOR Comment: 02/09/24 LDCT - mild paraseptal and centrilobular emphysemaOct 2023 Entered By: ESTELLA JUNIOR Comment: quit smoking 12/2022 - restarted smoking 06/2023 [place] Under care of multiple providers Active Condition Aug 01 024 Entered By: ESTELLA JUNIOR Comment: community PCP - Dr. Bobby DeleonOct 2023 Entered By: ESTELLA JUNIOR Comment: Dr. Stevens - vascular surgeryOct 2023 Entered By: ESTELLA JUNIOR Comment: Ophthalmology - Dr. Cristofer Tatumct 2023 Entered By: ESTELLA JUNIOR Comment: Dermatology - ELBA Millard [facility] Acute deep venous thrombosis Inactive Condition 08/06/2023 [facility] Basal cell carcinoma of scalp Inactive Condition 08/06/2023February 17, 2 017 Entered By: JAVY EUGENE Comment: treated by outside pain management nurse [facility] Cholelithiasis Inactive Condition 08/06/2023 Dec 30, 2020 Entered By: HANK IC,JOHN Mcneill Comment: incidental finding LDCT 12/2020 [place] Elevated PSA Inactive Condition 02/04/2024 [facility] Impaired fasting glucose Inactive Condition 08/06/2023 [facility] Long-term current use of anticoagulant Inactive Condition 08/02/2024 Aug 06, 2023 Entered By: ESTELLA JUNIOR Comment: 02/2023 vascular surgery recommends lifelong anticoaulant therapyMay 2023 Entered By: ESTELLA JUNIOR Comment: 02/04/24 vascular has dc'd apixaban, start low dose ASAOct 2023 Entered By: ESTELLA JUNIOR Comment: 08/01/24 stopped taking ASA [facility] NKA [facility] Per[facility] arterial occlusive disease Inactive Condition 08/06/2023 May 08, 2023 Entered By: LENIN CAMERON Comment: Femoral-Poplite al Bypass Let Side DEC 25; Stable as ian May Entered By: LENIN CAMERON Comment: LLE Thrombolysis FEBRUARY 24, L Side; PVD B/L;May 08, 2023 Entered By: LENIN CAMERON Comment: Life-Long Anti-Coag Recommended By Jonas at [facility] Tobacco dependence Inactive Condition 08/06/2023 [facility] Tobacco user Inactive Condition 09/12/2019May Entered By: LUIS F MORATAYA Comment: 4 cigarette [facility] Diagnosis: ICD-10-CM L21.8 Other seborrheic dermatitis Active Diagnosis [facility] Diagnosis: ICD-10-CM J43.9 Emphysema, unspecified Active Diagnosis [place] Diagnosis: ICD-10-CM Z12.2 Encntr screen for malignant neoplasm of respiratory organs Active Diagnosis [facility] Diagnosis: ICD-10-CM I73.9 Peripheral vascular disease, unspecified Active Diagnosis [place] Diagnosis: ICD-10-CM Z86.718 Personal history of other venous thrombosis and embolism Active Diagnosis [facility] ([id number]) Diagnosis: ICD-10-CM Z51.81 Encounter for therapeutic drug level monitoring Active Diagnosis [facility] Medications Combined list of outpatient medications from Department of Defense and Veterans Affairs facilities.Medications provided include 1) outpatient medications from the last 15 months, and 2) patient-reported medications. Medication Details Route Status Patient Instructions Prescription Expires Prescription Number Last Dispense Date Ordering Provider Order Date Order Qty Source APIXABAN 2.5MG TAB TAKE ONE TABLET BY MOUTH EVERY 12 HOURS FOR PREVENTI ON OF BLOOD CLOTS ORAL DISCONT INUED BY PROVIDE R 12/14/2024 [id number] 4 Rivka JUNIOR 2023 180 [place] APIXABAN 2.5MG TAB TAKE ONE TABLET BY MOUTH EVERY 12 HOURS FOR PREVENTI ON OF BLOOD CLOTS ORAL DISCONT INUED 06/05/2024 [id number] PITER CAMERON 2022 180 [place] KETOCONAZOL E 2% CREAM,TOP APPLY A THIN LAYER TOPICALL Y TWICE DAILY TO FLAKE ON FACE UNTIL RESOLVED TOPICA L ACTIVE 10/05/2025 [id number] Rivka JUNIOR 2024 60 [place] LATANOPROST 0.005% SOLN,OPH INSTILL 1 DROP INTO EACH EYE ONCE DAILY FOR INCREASE D PRESSURE IN THE EYE OPHTHA LMIC 08/06/2024 [id number] 4 Rivka JUNIOR 2022 7.5 [place] MUPIROCIN 2% OINT,TOP APPLY THIN LAYER TOPICALL Y TWICE DAILY TOPICA L 09/22/2024 [id number] 4 Rivka JUNIOR 2023 22 [place] OMEPRAZOLE 20MG CAP,EC TAKE ONE CAPSULE BY MOUTH EVERY MORNING 30 MINUTES BEFORE BREAKFAS T FOR GASTROES OPHAGEAL REFLUX DISEASE ORAL HOLD 10/09/2025 [id number] Rivka JUNIOR 2024 90 [place] OMEPRAZOLE 20MG CAP,EC TAKE ONE CAPSULE BY MOUTH EVERY MORNING 30 MINUTES BEFORE BREAKFAS T FOR GASTROES OPHAGEAL REFLUX DISEASE ORAL DISCONT INUED 08/06/2024 [id number] Rivka JUNIOR 2022 90 [place] TAMSULOSIN HCL 0.4MG CAP TAKE ONE CAPSULE BY MOUTH AT BEDTIME FOR ENLARGED PROSTATE ORAL DISCONT INUED BY PROVIDE R 12/01/2024 [id number] 4 Rivka JUNIOR 2023 90 [facility] IELD TAMSULOSIN HCL 0.4MG CAP TAKE ONE CAPSULE BY MOUTH AT BEDTIME FOR ENLARGED PROSTATE ORAL DISCONT INUED 08/06/2024 [id number] Rivka JUNIOR 2022 90 [facility] IELD TRAZODONE HCL 100MG TAB TAKE TWO TABLETS BY MOUTH AT BEDTIME FOR INSOMNIA ORAL ACTIVE 08/02/2025 [id number] Rivka JUNIOR 2023 180 [place] TRAZODONE HCL 100MG TAB TAKE ONE TABLET BY MOUTH AT BEDTIME FOR INSOMNIA ORAL DISCONT INUED (EDIT) 02/04/2025 [id number] 4 Rivka JUNIOR 2023 90 [facility] IELD TRAZODONE HCL 100MG TAB TAKE ONE TABLET BY MOUTH AT BEDTIME FOR INSOMNIA ORAL DISCONT INUED 02/26/2024 [id number] 4 Rivka JUNIOR 2023 30 [place] TRAZODONE HCL 100MG TAB TAKE ONE TABLET BY MOUTH AT BEDTIME FOR INSOMNIA ORAL DISCONT INUED 01/26/2025 [id number] 4 Rivka JUNIOR 2023 90 [facility] IELD TRAZODONE HCL 100MG TAB TAKE ONE TABLET BY MOUTH AT BEDTIME FOR INSOMNIA ORAL DISCONT INUED 08/06/2024 [id number] Rivka JUNIOR 2022 90 [facility] [place] Immunizations Combined list of available immunizations from the Department of Defense and Veterans Affairs facilities. Immunization Series Date Given Administered By Site Reaction Lot Number CVX Code Drug Multimedia Teacher Status Comments Source ZOSTER RECOMBINANT 2 2021 187 complet ed [facility] [place] COVID-19 (MODERNA), MRNA, LNP-S, PF, 100 MCG/0.5ML DOSE OR 50 MCG/0.25ML DOSE 3 2020 207 complet ed [facility] COVID-19 (MODERNA), MRNA, LNP-S, PF, 100 MCG/0.5 ML DOSE 2 2020 207 complet ed MOD; [id number]; 1 [place] COVID-19 (MODERNA), MRNA, LNP-S, PF, 100 MCG/0.5 ML DOSE 1 2020 207 complet ed MOD; [id number]; 1 [place] PNEUMOCOCCAL CONJUGATE PCV 13 2017 133 complet ed [place] FLU,3 YRS (HISTORICAL) 2014 88 complet ed Site: Left Deltoid [place] DTAP, UNSPECIFIED FORMULATION 2012 107 complet ed Site: Right Deltoid [place] PNEUMOCOCCAL, UNSPECIFIED FORMULATION 2012 109 complet ed [place] ZOSTER LIVE 2012 NATALIA PAPPAS 121 complet ed [place] Results Combined list of recent chemistry, hematology and other laboratory results from Department of Defense and Veterans Affairs, ranging from 15 months to all on record, depending upon the facility. Order Name Results Value Reference Range Date Interpretation Specimen Comments Source BASIC METABOLIC PANEL (fasting) UREA NITROGEN [MASS/VOLUM E] IN SERUM OR PLASMA 25 mg/dL 7 - 25 07/29 Specimen Type: SERUM No comment entered. Ordering Provider: NESTOR LAW Report Released Date/Time: Jun 24, 2023 12:56 PM Reporting Lab: [address] [address] Performing Lab: [address] [address] [facility] BASIC METABOLIC PANEL (fasting) GLUCOSE [MASS/VOLUM E] IN SERUM OR PLASMA 101 mg/dL 65 - 100 07/29 H Specimen Type: SERUM No comment entered. Ordering Provider: NESTOR LAW Report Released Date/Time: Jun 24, 2023 12:56 PM Reporting Lab: [address] [address] Performing Lab: [address] [address] [place] BASIC METABOLIC PANEL (fasting) SODIUM [MOLES/VOLU ME] IN SERUM OR PLASMA 141 mmol/L 135 - 145 07/29 Specimen Type: SERUM No comment entered. Ordering Provider: NESTOR LAW Report Released Date/Time: Jun 24, 2023 12:56 PM Reporting Lab: [facility] [address] [address] Performing Lab: [facility] [place] [address] [address] [place] BASIC METABOLIC PANEL (fasting) POTASSIUM [MOLES/VOLU ME] IN SERUM OR PLASMA 4.5 mmol/L 3.5 - 5.0 07/29 Specimen Type: SERUM No comment entered. Ordering Provider: NESTOR LAW Report Released Date/Time: Jun 24, 2023 12:56 PM Reporting Lab: [facility] [address] [address] Performing Lab: [facility]ITALTRN [facility] [address] [address] [place] BASIC METABOLIC PANEL (fasting) CHLORIDE [MOLES/VOLU ME] IN SERUM OR PLASMA 104 mmol/L 100 - 110 07/29 Specimen Type: SERUM No comment entered. Ordering Provider: NESTOR LAW Report Released Date/Time: Jun 24, 2023 12:56 PM Reporting Lab: [facility] [place] [address] [address] Performing Lab: [facility]PITALTRN [facility] [address] [address] [place] BASIC METABOLIC PANEL (fasting) CARBON DIOXIDE, TOTAL [MOLES/VOLU ME] IN SERUM OR PLASMA 28 meq/L 20 - 30 07/29 Specimen Type: SERUM No comment entered. Ordering Provider: NESTOR LAW Report Released Date/Time: Jun 24, 2023 12:56 PM Reporting Lab: [facility]ITALTRN [place] [address] [address] Performing Lab: [address] [address] [place] BASIC METABOLIC PANEL (fasting) CREATININE [MASS/VOLUM E] IN SERUM OR PLASMA 1.41 mg/dL 0.50 - 1.40 07/29 H Specimen Type: SERUM No comment entered. Ordering Provider: NESTOR LAW Report Released Date/Time: Jun 24, 2023 12:56 PM Reporting Lab: [address] [address] Performing Lab: [address] [address] [place] BASIC METABOLIC PANEL (fasting) GLOMERULAR FILTRATION RATE/1.73 SQ M.PREDICTED [VOLUME RATE/AREA] IN SERUM, PLASMA OR BLOOD BY CREATININE- BASED FORMULA (CKD-EPI 2020) 53 mL/min 60 07/29 L Specimen Type: SERUM No comment entered. Ordering Provider: NESTOR LAW Report Released Date/Time: Jun 24, 2023 12:56 PM Reporting Lab: [address] [address] Performing Lab: [address] [address] [place] CBC AND DIFF (AUTO) LEUKOCYTES [#/VOLUME] IN BLOOD BY AUTOMATED COUNT 5.21 10*3/u L 4.50 - 11.00 07/29 Specimen Type: BLOOD No comment entered. Ordering Provider: NESTOR LAW Report Released Date/Time: Jun 24, 2023 12:56 PM Reporting Lab: [address] [address] Performing Lab: [address] [address] [place] CBC AND DIFF (AUTO) ERYTHROCYTE S [#/VOLUME] IN BLOOD BY AUTOMATED COUNT 4.29 10*6/u L 4.23 - 5.66 07/29 Specimen Type: BLOOD No comment entered. Ordering Provider: NESTOR LAW Report Released Date/Time: Jun 24, 2023 12:56 PM Reporting Lab: [facility] [address] [facility] [address] Performing Lab: [facility] WSTRN [facility] [address] [address] [place] CBC AND DIFF (AUTO) HEMOGLOBIN [MASS/VOLUM E] IN BLOOD 12.6 g/dL 12.8 - 17 07/29 L Specimen Type: BLOOD No comment entered. Ordering Provider: NESTOR LAW Report Released Date/Time: Jun 24, 2023 12:56 PM Reporting Lab: [facility] W[facility]N [facility] [address] Performing Lab: [facility]ITALRL TRN [address] [address] [place] CBC AND DIFF (AUTO) HEMATOCRIT [VOLUME FRACTION] OF BLOOD BY AUTOMATED COUNT 38.7 39.2 - 50.4 07/29 L Specimen Type: BLOOD No comment entered. Ordering Provider: NESTOR LAW Report Released Date/Time: Jun 24, 2023 12:56 PM Reporting Lab: [facility]RL W[facility]N [facility] [address] Performing Lab: [facility] TR[facility] [address] [address] [place] CBC AND DIFF (AUTO) MCV [ENTITIC VOLUME] BY AUTOMATED COUNT 90.2 fL 82 - 99 07/29 Specimen Type: BLOOD No comment entered. Ordering Provider: NESTOR LAW Report Released Date/Time: Jun 24, 2023 12:56 PM Reporting Lab: [facility] [address] [address] Performing Lab: [facility]RL W[facility]N [facility] [address] [place] CBC AND DIFF (AUTO) MCHC [MASS/VOLUM E] BY AUTOMATED COUNT 32.6 g/dL 30.8 - 35.1 07/29 Specimen Type: BLOOD No comment entered. Ordering Provider: NESTOR LAW Report Released Date/Time: Jun 24, 2023 12:56 PM Reporting Lab: [facility]ITALRSEARCY HOSPITALTRN [address] [address] Performing Lab: [facility]ITALR[facility] HOSPITALTRN [facility]USE[address] [address] [place] CBC AND DIFF (AUTO) PLATELETS [#/VOLUME] IN BLOOD BY AUTOMATED COUNT 202 10*3/u L 140 - 360 07/29 Specimen Type: BLOOD No comment entered. Ordering Provider: NESTOR LAW Report Released Date/Time: Jun 24, 2023 12:56 PM Reporting Lab: [facility]ITALR[facility]ERN [address] [address] Performing Lab: [facility]ITALRSEARCY HOSPITALTRN [facility]ITALUSE[address] [address] [place] CBC AND DIFF (AUTO) ERYTHROCYTE DISTRIBUTIO N WIDTH [RATIO] BY AUTOMATED COUNT 14.7 12.0 - 16.0 07/29 Specimen Type: BLOOD No comment entered. Ordering Provider: NESTOR LAW Report Released Date/Time: Jun 24, 2023 12:56 PM Reporting Lab: [facility]ITALR[facility]OSPITALTRN [facility] [address] [address] Performing Lab: [facility]ITALRL TRN [facility] [address] [address] [place] CBC AND DIFF (AUTO) MONOCYTES [#/VOLUME] IN BLOOD BY AUTOMATED COUNT 0.45 10*3/u L 0.30 - 1.10 07/29 Specimen Type: BLOOD No comment entered. Ordering Provider: NESTOR LAW Report Released Date/Time: Jun 24, 2023 12:56 PM Reporting Lab: [facility]ITALR[facility]PITALTRN [facility] [address] [address] Performing Lab: [facility] [place] [facility] [address] [facility] [address] [place] CBC AND DIFF (AUTO) MCH [ENTITIC MASS] BY AUTOMATED COUNT 29.4 pg 26.2 - 32.6 07/29 Specimen Type: BLOOD No comment entered. Ordering Provider: NESTOR LAW Report Released Date/Time: Jun 24, 2023 12:56 PM Reporting Lab: [facility] [place] [address] [address] Performing Lab: [facility] [place] [address] [address] [place] CBC AND DIFF (AUTO) NEUTROPHILS /100 LEUKOCYTES IN BLOOD BY AUTOMATED COUNT 67.7 43.7 - 75.8 07/29 Specimen Type: BLOOD No comment entered. Ordering Provider: NESTOR LAW Report Released Date/Time: Jun 24, 2023 12:56 PM Reporting Lab: [facility] [place] [address] [address] Performing Lab: [facility] [place] [address] [address] [place] CBC AND DIFF (AUTO) LYMPHOCYTES /100 LEUKOCYTES IN BLOOD BY AUTOMATED COUNT 19.6 14.0 - 42.3 07/29 Specimen Type: BLOOD No comment entered. Ordering Provider: NESTOR LAW Report Released Date/Time: Jun 24, 2023 12:56 PM Reporting Lab: [facility] [place] [address] [address] Performing Lab: [facility] [place] [address] [address] [place] CBC AND DIFF (AUTO) MONOCYTES/1 00 LEUKOCYTES IN BLOOD BY AUTOMATED COUNT 8.6 5.1 - 13.7 07/29 Specimen Type: BLOOD No comment entered. Ordering Provider: NESTOR LAW Report Released Date/Time: Jun 24, 2023 12:56 PM Reporting Lab: [facility] [place] [address] [address] Performing Lab: [facility]ITALRL TRN [facility] [address] [address] [place] CBC AND DIFF (AUTO) EOSINOPHILS /100 LEUKOCYTES IN BLOOD BY AUTOMATED COUNT 3.1 0.4 - 6.8 07/29 Specimen Type: BLOOD No comment entered. Ordering Provider: NESTOR LAW Report Released Date/Time: Jun 24, 2023 12:56 PM Reporting Lab: [facility]ITALRL TRN [facility] [address] Performing Lab: [facility]ITALRGRAND[facility]ENTERN [address] [address] [place] CBC AND DIFF (AUTO) BASOPHILS/1 00 LEUKOCYTES IN BLOOD BY AUTOMATED COUNT 0.8 0.1 - 2.0 07/29 Specimen Type: BLOOD No comment entered. Ordering Provider: NESTOR LAW Report Released Date/Time: Jun 24, 2023 12:56 PM Reporting Lab: [facility]ITALRL TRN [address] [address] Performing Lab: [facility]ITALRL TRN [facility] [address] [place] CBC AND DIFF (AUTO) NEUTROPHILS [#/VOLUME] IN BLOOD BY AUTOMATED COUNT 3.53 10*3/u L 2.20 - 7.60 07/29 Specimen Type: BLOOD No comment entered. Ordering Provider: NESTOR LAW Report Released Date/Time: Jun 24, 2023 12:56 PM Reporting Lab: [facility]ITALRL TRN [facility] [address] Performing Lab: [facility]ITALRGRAND[facility]ENTERN [facility]ITALUSE[address] [address] [place] CBC AND DIFF (AUTO) LYMPHOCYTES [#/VOLUME] IN BLOOD BY AUTOMATED COUNT 1.02 10*3/u L 1.00 - 3.20 07/29 Specimen Type: BLOOD No comment entered. Ordering Provider: NESTOR LAW Report Released Date/Time: Jun 24, 2023 12:56 PM Reporting Lab: [facility] [place] [address] [address] Performing Lab: [facility] [address] [facility] [address] [place] CBC AND DIFF (AUTO) EOSINOPHILS [#/VOLUME] IN BLOOD BY AUTOMATED COUNT 0.16 10*3/u L 0.03 - 0.44 07/29 Specimen Type: BLOOD No comment entered. Ordering Provider: NESTOR LAW Report Released Date/Time: Jun 24, 2023 12:56 PM Reporting Lab: [facility] [address] [address] Performing Lab: [facility] [address] [address] [place] CBC AND DIFF (AUTO) BASOPHILS [#/VOLUME] IN BLOOD BY AUTOMATED COUNT 0.04 10*3/u L 0.01 - 0.13 07/29 Specimen Type: BLOOD No comment entered. Ordering Provider: NESTOR LAW Report Released Date/Time: Jun 24, 2023 12:56 PM Reporting Lab: [facility] [address] [address] Performing Lab: [facility] [address] [address] [place] CBC AND DIFF (AUTO) IMMATURE GRANULOCYTE S/100 LEUKOCYTES IN BLOOD BY AUTOMATED COUNT 0.2 0.0 - 0.7 07/29 Specimen Type: BLOOD No comment entered. Ordering Provider: NESTOR LAW Report Released Date/Time: Jun 24, 2023 12:56 PM Reporting Lab: [facility] [place] [address] [address] Performing Lab: [facility] [address] [address] [place] CBC AND DIFF (AUTO) IMMATURE GRANULOCYTE S [#/VOLUME] IN BLOOD 0.01 10*3/u L 0.00 - 0.06 07/29 Specimen Type: BLOOD No comment entered. Ordering Provider: NESTOR LAW Report Released Date/Time: Jun 24, 2023 12:56 PM Reporting Lab: [address] [address] Performing Lab: [address] [address] [place] HEMOGLOBI N A1C PANEL HEMOGLOBIN A1C/HEMOGLO BIN.TOTAL IN BLOOD BY HPLC 5.2 4.0 - 5.6 07/29 Specimen Type: BLOOD Comment: Values obtained from A1C measurement s can vary. For atypical A1C assays, a reported value of 7.0 could actually be between 6.72 and 7.28 if measured by a reference method. A reported value of 9.0 could actually be between 8.73 and 9.27. Ref: http://www. ngsp.org/[place] Pdata.asp Ordering Provider: NESTOR LAW Report Released Date/Time: Jun 24, 2023 12:56 PM Reporting Lab: [address] [address] Performing Lab: [address] [address] [place] LIPID PANEL FASTING CHOLESTEROL [MASS/VOLUM E] IN SERUM OR PLASMA 177 mg/dL 07/29 Specimen Type: SERUM No comment entered. Ordering Provider: NESTOR LAW Report Released Date/Time: Jun 24, 2023 12:56 PM Reporting Lab: [address] [address] Performing Lab: [address] [address] [place] LIPID PANEL FASTING TRIGLYCERID E [MASS/VOLUM E] IN SERUM OR PLASMA 89 mg/dL 0 - 150 07/29 Specimen Type: SERUM No comment entered. Ordering Provider: NESTOR LAW Report Released Date/Time: Jun 24, 2023 12:56 PM Reporting Lab: [facility]ITALRSE[facility]PITALTRN [facility]USER[facility] [address] [facility] [address] Performing Lab: [facility]ITALRL TRN [facility]ITALUSETS [address] [address] [place] LIPID PANEL FASTING CHOLESTEROL IN LDL [MASS/VOLUM E] IN SERUM OR PLASMA BY CALCULATION 111 mg/dL 0 - 129 07/29 Specimen Type: SERUM No comment entered. Ordering Provider: NESTOR LAW Report Released Date/Time: Jun 24, 2023 12:56 PM Reporting Lab: [facility]ERN [address] [address] Performing Lab: [facility]ITALRGRAND[facility]ENTERN [facility]ITALUSE[address] [address] [place] LIPID PANEL FASTING CHOLESTEROL .TOTAL/CHOL ESTEROL IN HDL [MASS RATIO] IN SERUM OR PLASMA 3.7 07/29 Specimen Type: SERUM No comment entered. Ordering Provider: NESTOR LAW Report Released Date/Time: Jun 24, 2023 12:56 PM Reporting Lab: [facility]PITALRSEARCY HOSPITALTRN [facility]ITALUSETS [address] [address] Performing Lab: [facility]PITALRL TRN [facility]ITALUSETS [address] [address] [place] LIPID PANEL FASTING CHOLESTEROL IN HDL [MASS/VOLUM E] IN SERUM OR PLASMA 48 mg/dL 40 - 60 07/29 Specimen Type: SERUM No comment entered. Ordering Provider: NESTOR LAW Report Released Date/Time: Jun 24, 2023 12:56 PM Reporting Lab: [facility]ITALRSEARCY HOSPITALTRN [facility]USE[address] [address] Performing Lab: [facility]PITALRSEARCY HOSPITALTRN [facility]ITALUSE[address] [address] [place] LIVER FUNCTION PROTEIN [MASS/VOLUM E] IN SERUM OR PLASMA 6.8 g/dL 6.0 - 8.3 07/29 Specimen Type: SERUM No comment entered. Ordering Provider: NESTOR LAW Report Released Date/Time: Jun 24, 2023 12:56 PM Reporting Lab: [facility] HOSPITALRL TRN [facility] HOSPITALUSETS [facility] [address] [facility] [address] Performing Lab: [facility] HOSPITALRL TRN [facility] HOS[facility]ITALUSETS [facility] [address] [facility] [address] [place] LIVER FUNCTION ALBUMIN [MASS/VOLUM E] IN SERUM OR PLASMA 3.6 g/dL 3.5 - 5.0 07/29 Specimen Type: SERUM No comment entered. Ordering Provider: NESTOR LAW Report Released Date/Time: Jun 24, 2023 12:56 PM Reporting Lab: [facility]PITALRGRANDVIEW MED[facility] CENTERN [address] [address] Performing Lab: [facility]PITALRGRANDVIEW MEDICAL CENTERN [address] [address] [place] LIVER FUNCTION ALKALINE PHOSPHATASE [ENZYMATIC ACTIVITY/VO LUME] IN SERUM OR PLASMA 76 U/L 40 - 150 07/29 Specimen Type: SERUM No comment entered. Ordering Provider: NESTOR LAW Report Released Date/Time: Jun 24, 2023 12:56 PM Reporting Lab: [facility]OSPITALRL TRN [facility]ITALUSE[address] [address] Performing Lab: [facility] HOSPITALRL TRN [facility] HOSPITALUSETS [address] [address] [place] LIVER FUNCTION ASPARTATE AMINOTRANSF ERASE [ENZYMATIC ACTIVITY/VO LUME] IN SERUM OR PLASMA 16 U/L 5 - 34 07/29 Specimen Type: SERUM No comment entered. Ordering Provider: NESTOR LAW Report Released Date/Time: Jun 24, 2023 12:56 PM Reporting Lab: [facility]OSPITALRL TRN [facility]ITALUSE[address] [address] Performing Lab: [facility]OSPITALRL TRN [facility]ITALUSE[address] [address] [place] LIVER FUNCTION ALANINE AMINOTRANSF ERASE [ENZYMATIC ACTIVITY/VO LUME] IN SERUM OR PLASMA 13 U/L 07/29 Specimen Type: SERUM No comment entered. Ordering Provider: NESTOR LAW Report Released Date/Time: Jun 24, 2023 12:56 PM Reporting Lab: [facility]ITALUSETS [address] [address] Performing Lab: [place] [facility]OS[facility]ITALUSETS [address] [address] [place] LIVER FUNCTION BILIRUBIN.T OTAL [MASS/VOLUM E] IN SERUM OR PLASMA 0.6 mg/dL 0.2 - 1.2 07/29 Specimen Type: SERUM No comment entered. Ordering Provider: NESTOR LAW Report Released Date/Time: Jun 24, 2023 12:56 PM Reporting Lab: [facility]ITALUSE[address] [address] Performing Lab: [facility] TRN [facility]OS[facility]ITALUSE[address] [address] [place] TSH THYROTROPIN [UNITS/VOLU ME] IN SERUM OR PLASMA 1.41 u[IU]/ mL 0.35 - 5.00 07/29 Specimen Type: SERUM No comment entered. Ordering Provider: NESTOR LAW Report Released Date/Time: Jun 24, 2023 12:56 PM Reporting Lab: [facility]ITALUSE[address] [address] Performing Lab: [facility]ITALUSETS [address] [address] [place] CBC LEUKOCYTES [#/VOLUME] IN BLOOD BY AUTOMATED COUNT 4.55 10*3/u L 4.50 - 11.00 05/11 Specimen Type: BLOOD No comment entered. Ordering Provider: LENIN CAMERON Report Released Date/Time: May 08, 2023 01:24 PM Reporting Lab: [facility] [place] [address] [address] Performing Lab: [place] [facility]ITALUSE[address] [address] [place] CBC ERYTHROCYTE S [#/VOLUME] IN BLOOD BY AUTOMATED COUNT 4.65 10*6/u L 4.23 - 5.66 05/11 Specimen Type: BLOOD No comment entered. Ordering Provider: LENIN CAMERON Report Released Date/Time: May 08, 2023 01:24 PM Reporting Lab: [facility] HOSPITALRGRANDVIEW MEDICAL CENTERN [address] [address] Performing Lab: [address] [address] [place] CBC HEMOGLOBIN [MASS/VOLUM E] IN BLOOD 13.6 g/dL 12.8 - 17 05/11 Specimen Type: BLOOD No comment entered. Ordering Provider: LENIN CAMERON Report Released Date/Time: May 08, 2023 01:24 PM Reporting Lab: [facility] [address] [address] Performing Lab: [address] [address] [place] CBC HEMATOCRIT [VOLUME FRACTION] OF BLOOD BY AUTOMATED COUNT 42.1 39.2 - 50.4 05/11 Specimen Type: BLOOD No comment entered. Ordering Provider: LENIN CAMERON Report Released Date/Time: May 08, 2023 01:24 PM Reporting Lab: [address] [address] Performing Lab: [address] [address] [place] CBC MCV [ENTITIC VOLUME] BY AUTOMATED COUNT 90.5 fL 82 - 99 05/11 Specimen Type: BLOOD No comment entered. Ordering Provider: LENIN CAMERON Report Released Date/Time: May 08, 2023 01:24 PM Reporting Lab: [address] [address] Performing Lab: [address] [address] [place] CBC MCHC [MASS/VOLUM E] BY AUTOMATED COUNT 32.3 g/dL 30.8 - 35.1 05/11 Specimen Type: BLOOD No comment entered. Ordering Provider: LENIN CAMERON Report Released Date/Time: May 08, 2023 01:24 PM Reporting Lab: [facility]N [facility] [address] [facility] [address] Performing Lab: [facility]USN [facility]ITALUSEROC[facility] [address] [facility] [address] [place] CBC PLATELETS [#/VOLUME] IN BLOOD BY AUTOMATED COUNT 148 10*3/u L 140 - 360 05/11 Specimen Type: BLOOD No comment entered. Ordering Provider: LENIN CAMERON Report Released Date/Time: May 08, 2023 01:24 PM Reporting Lab: [facility]N [facility] [address] [facility] [address] Performing Lab: [facility]USN [address] [address] [place] CBC ERYTHROCYTE DISTRIBUTIO N WIDTH [RATIO] BY AUTOMATED COUNT 14.3 12.0 - 16.0 05/11 Specimen Type: BLOOD No comment entered. Ordering Provider: LENIN CAMERON Report Released Date/Time: May 08, 2023 01:24 PM Reporting Lab: [facility] [address] [facility] [address] Performing Lab: [facility]N [address] [address] [place] CBC MCH [ENTITIC MASS] BY AUTOMATED COUNT 29.2 pg 26.2 - 32.6 05/11 Specimen Type: BLOOD No comment entered. Ordering Provider: LENIN CAMERON Report Released Date/Time: May 08, 2023 01:24 PM Reporting Lab: [facility]PITALRGRANDVIEW MEDICAL CENTERN [facility] [address] [facility] [address] Performing Lab: [facility]USN [facility]OS[facility]ITALUSE[address] [address] [place] CREATININ E (eGFR 2020) CREATININE [MASS/VOLUM E] IN SERUM OR PLASMA 1.59 mg/dL 0.50 - 1.40 05/11 H Specimen Type: SERUM No comment entered. Ordering Provider: LENIN CAMERON Report Released Date/Time: May 08, 2023 01:24 PM Reporting Lab: [facility] [address] [address] Performing Lab: [facility]USN [address] [address] [place] CREATININ E (eGFR 2020) GLOMERULAR FILTRATION RATE/1.73 SQ M.PREDICTED [VOLUME RATE/AREA] IN SERUM, PLASMA OR BLOOD BY CREATININE- BASED FORMULA (CKD-EPI) 46 mL/min 60 05/11 L Specimen Type: SERUM No comment entered. Ordering Provider: LENIN CAMERON Report Released Date/Time: May 08, 2023 01:24 PM Reporting Lab: [facility] [address] [address] Performing Lab: [address] [address] [place] LIVER FUNCTION PROTEIN [MASS/VOLUM E] IN SERUM OR PLASMA 6.9 g/dL 6.0 - 8.3 05/11 Specimen Type: SERUM No comment entered. Ordering Provider: LENIN CAMERON Report Released Date/Time: May 08, 2023 01:24 PM Reporting Lab: [facility] [address] [address] Performing Lab: [address] [address] [place] LIVER FUNCTION ALBUMIN [MASS/VOLUM E] IN SERUM OR PLASMA 3.7 g/dL 3.5 - 5.0 05/11 Specimen Type: SERUM No comment entered. Ordering Provider: LENIN CAMERON Report Released Date/Time: May 08, 2023 01:24 PM Reporting Lab: [facility] [address] [address] Performing Lab: [address] [address] [place] FUNCTION ALKALINE PHOSPHATASE [ENZYMATIC ACTIVITY/VO LUME] IN SERUM OR PLASMA 90 U/L 40 - 150 05/11 Specimen Type: SERUM No comment entered. Ordering Provider: LENIN CAMERON Report Released Date/Time: May 08, 2023 01:24 PM Reporting Lab: [facility] [address] [place] [address] Performing Lab: [facility] [place] [facility] [address] [facility] [address] [place] LIVER FUNCTION ASPARTATE AMINOTRANSF ERASE [ENZYMATIC ACTIVITY/VO LUME] IN SERUM OR PLASMA 17 U/L 5 - 34 05/11 Specimen Type: SERUM No comment entered. Ordering Provider: LENIN CAMERON Report Released Date/Time: May 08, 2023 01:24 PM Reporting Lab: [facility] [place] [facility] [address] [facility] [address] Performing Lab: [facility] [place] [facility] [address] [facility] [address] [place] LIVER FUNCTION ALANINE AMINOTRANSF ERASE [ENZYMATIC ACTIVITY/VO LUME] IN SERUM OR PLASMA 13 U/L 05/11 Specimen Type: SERUM No comment entered. Ordering Provider: LENIN CAMERON Report Released Date/Time: May 08, 2023 01:24 PM Reporting Lab: [facility] [place] [facility] [address] [facility] [address] Performing Lab: [facility] [place] [address] [address] [place] LIVER FUNCTION BILIRUBIN.T OTAL [MASS/VOLUM E] IN SERUM OR PLASMA 0.6 mg/dL 0.2 - 1.2 05/11 Specimen Type: SERUM No comment entered. Ordering Provider: LENIN CAMERON Report Released Date/Time: May 08, 2023 01:24 PM Reporting Lab: [facility] [place] [facility] [address] [facility] [address] Performing Lab: [facility] [place] [address] [address] [place] PT & INR (COUMADIN ) INR IN PLATELET POOR PLASMA BY COAGULATION ASSAY 1.1 05/11 Specimen Type: PLASMA No comment entered. Ordering Provider: LENIN CAMERON Report Released Date/Time: May 08, 2023 01:24 PM Reporting Lab: [place] [facility] [address] [address] Performing Lab: [facility] [place] [facility] [address] [facility] [address] [facility] ([facility]OU[facility]ADIN ) PROTHROMBIN TIME (PT) 13.0 s 10.0 - 13.1 05/11 Specimen Type: PLASMA No comment entered. Ordering Provider: LENIN CAMERON Report Released Date/Time: May 08, 2023 01:24 PM Reporting Lab: [facility] [address] [facility] [address] Performing Lab: [address] [address] [facility] Vital Signs Combined list of inpatient and outpatient Vital Signs from Department of Defense and Veterans Affairs, ranging from 12 months to all on record, depending upon the facility. Vital Sign Value Date Comments Source SYSTOLIC BLOOD PRESSURE 106 08/01/2024 08:46:57 [place] DIASTOLIC BLOOD PRESSURE 63 08/01/2024 08:46:57 [place] PULSE OXIMETRY 96 08/01/2024 08:46:57 [place] WEIGHT 181 08/01/2024 08:46:57 [place] BMI 24kg/m2 08/01/2024 08:46:57 [place] HEIGHT 73 08/01/2024 08:46:57 [place] TEMPERATURE 98 08/01/2024 08:46:57 [place] PULSE 86 08/01/2024 08:46:57 [place] RESPIRATION 18 08/01/2024 08:46:57 [place] SYSTOLIC BLOOD PRESSURE 144 02/04/2024 08:28:38 [place] DIASTOLIC BLOOD PRESSURE 83 02/04/2024 08:28:38 [place] PULSE OXIMETRY 98 02/04/2024 08:28:38 [place] WEIGHT 187 02/04/2024 08:28:38 [place] BMI 25kg/m2 02/04/2024 08:28:38 [place] HEIGHT 73 02/04/2024 08:28:38 [place] TEMPERATURE 97.9 02/04/2024 08:28:38 [place] PULSE 86 02/04/2024 08:28:38 [place] RESPIRATION 19 02/04/2024 08:28:38 [place] Encounters Combined list of: 1) Encounters from Department of Veterans Affairs facilities going back up to thelast 18 months. 2) Encounters from the Department of Defense facilities going back up to 280 months. Location Location Details Encounter Type Encounter Number Reason For Visit Attending Provider ADM Date DC Date Status Disposition Source [place] [facility] [facility] Outpatient Encounter [id number] 05/07 [facility] [place] [facility] [place] [facility] HC PRO PHONE CALL 11-20 MIN [id number] Diagnos is: ICD-10- CM Z51.81 Encount er for therape utic drug level monitor ing<br/ > RODERICK OLIVAREZ 05/11 [place] [facility] [place] [facility] [place] MTMS BY PHARM EST 15 MIN [id number] Diagnos is: ICD-10- CM Z86.718 Persona l history of other venous thrombo sis and embolis m
LEORA GRACIA IE 05/13 [place] [facility] [facility] Outpatient Encounter [id number] 05/29 [place] [facility] [place] [facility] ([id number]) QNHP OL DIG ASSMT&MGMT 5-10 [id number] Diagnos is: ICD-10- CM Z86.718 Persona l history of other venous thrombo sis and embolis m
BILLIE GARCIA 06/03 [facility] ([id number] [place] [facility] [place] [facility] Outpatient Encounter [id number] 07/06 [place] [facility] [place] [facility] [place] [facility] Outpatient Encounter [id number] 07/16 [place] [facility] [place] [facility] [place] [facility] Outpatient Encounter [id number] 07/22 [facility] [place] [facility] [place] [facility] En[facility] [id number] 07/22 [facility] [place] [facility] [place] [facility] En[facility] [id number] 08/06 [facility] [place] [facility] OFFICE O/P EST MOD 30-39 MIN [id number] Diagnos is: ICD-10- CM I73.9 Periphe ral vascula r disease , unspeci fied
TAMIKO JUNIOR 08/06 [facility] [place] [facility] [place] [facility] En[facility] [id number] TAMIKO JUNIOR C 08/06 [facility] [place] [facility] [place] [facility] En[facility] [id number] 08/12 [facility] [place] [facility] [place] [facility] Encounter [id number] 09/30 [facility] [place] [facility] [place] [facility] Encounter [id number] 12/03 [facility] [place] [facility] [place] [facility] En[facility] [id number] 12/12 [facility] [place] [facility] [place] [facility] Encounter [id number] 01/03 [facility] [place] [facility] [place] [facility] Encounter [id number] 01/20 [facility] [place] [facility] [place] [facility] Encounter [id number] 01/25 [facility] [place] [facility] [place] [facility] Encounter [id number] 01/26 [facility] [place] [facility] [place] [facility] Encounter [id number] Sarah JAMES 01/28 [facility] [place] [facility] [place] [facility] Encounter [id number] 02/01 [facility] [place] [facility] [place] [facility] En[facility] [id number] 02/01 [facility] [place] [facility] [place] [facility] En[facility] [id number] 02/03 [facility] [place] [facility] OFFICE O/P EST MOD 30 MIN [id number] Diagnos is: ICD-10- CM I73.9 Periphe ral vascula r disease , unspeci fied
TAMIKO JUNIOR C 02/03 [place] [facility] [place] En[facility] [id number] TAMIKO JUNIORA C 02/03 [facility] [place] [facility] [place] En[facility] [id number] 02/04 [facility] [place] [facility] [place] Encounter [id number] 02/06 [facility] [place] [facility] [place] [facility] QNHP OL DIG ASSMT&MGMT 21+ [id number] Diagnos is: ICD-10- CM Z12.2 Encntr screen for maligna nt neoplas m of respira tory organs< br/> CRISTOFER MARIE 02/07 [facility] [place] [facility] [place] En[facility] [id number] 02/08 [facility] [place] [facility] [place] [facility] QNHP OL DIG ASSMT&MGMT 5-10 [id number] Diagnos is: ICD-10- CM Z12.2 Encntr screen for maligna nt neoplas m of respira tory organs< br/> AVELINO GOMEZ 02/08 [facility] [place] [facility] [place] [facility] Outpatient Encounter [id number] 1.07/29 [facility] [place] [facility] OFFICE O/P EST MOD 30 MIN [id number] 1BY. Diagnos is: ICD-10- CM J43.9 Emphyse ma, unspeci fied
TAMIKO JUNIOR C 08/01 [place] [facility] [place] En[facility] [id number] 1. TAMIKO JUNIOR C 08/01 [facility] [place] [facility] [place] En[facility] [id number] 1.08/23 [facility] [place] [facility] [place] [facility] QNHP OL DIG ASSMT&MGMT 5-10 [id number] Diagnos is: ICD-10- CM L21.8 Other seborrh eic dermati tis<br/ > SOVERMARY,CH RISTY A 10/04 [facility] [place] [facility] [place] [facility] Outpatient Encounter [id number] 10/07 [facility] [place] [facility] Social History Combined list of available smoking, tobacco, and other social history from Department of Defense and Veterans Affairs facilities. Social History Type Response Date Comment Source Tobacco smoking status NHIS VA-TOBACCO NEVER USED 08/01/[facility] [place] [place] [facility] History of tobacco use WA-TOBACCO DOESNT USE WI 30 MIN WAKEUP 08/06/2023 [facility] [place] [facility] History of tobacco use [place]-TOBACCO FORMER USER 08/06/2023 [place] History of tobacco use WA-TOBACCO USER EVERY DAY 12/18/2021 [place] History of tobacco use VA-TOBACCO USER EVERY DAY 12/13/2020 [place] History of tobacco use VA-TOBACCO USE DECLINED TO ANSWER 08/13/2018 [place] History of tobacco use CURRENT SMOKER 08/21/2017 reports smoking 1 pack/week [place] History of tobacco use CURRENT SMOKER 10/13/2016 [place] History of tobacco use V1-PT READY TO QUIT TOBACCO USE 03/08/2015 [place] History of tobacco use QUIT TOBACCO USE IN PAST YEAR 01/19/2015 [place] History of tobacco use CURRENT SMOKER 05/27/2013 Pt. stated he smokes 4 cigarettes a day! [place] History of tobacco use HISTORY OF SMOKING 01/18/2002 Stopped 4 months ago [place] Plan of Care List of future care activities from Department of Veterans Affairs facilities. Additional future care activities may be listed in the Assessment and Plan section. Date/Time Care Activity Care Activity Detail Facili ty 02/02/2025 AMBULATORY - MEDICINE AMBULATORY - MEDICI [place]
--- OUTSIDE RECORDS SUMMARY | 2024-11-03 15:39 | XMS_ITS | Patient Health Record ---
Author Organization [facility] Address [address] [place] [address] Care Team Providers Care C Unix Developer Name Role Phone Bobby Deleon MD Primary Care Provider Levon Hernandez Jr Unavailable [phone] ALLERGIES No Known Allergies REASON FOR REFERRAL No Information MEDICATIONS Medication SIG (Take, Route, Frequency, Duration) Notes Start Date End Date Status traZODone HCl 100 MG Oral for 30 Active MiraLax (colon prep) 17 GM/SCOOP mixed with Gatorade or Crystal Light Orally begin at 5:00 p.m. the day before the procedure for 1 day 04/09/2022 Active Omeprazole 20 MG Oral for 90 A ctive Tamsulosin HCl 0.4 MG Oral for 30 Active Combigan 0.2-0.5 % Ophthalmic for 75 Active Latanoprost 0.005 % Ophthalmic for 56 Active IMMUNIZATIONS Vaccine Route Administration Date Status Comme nts Influenza Unknown 04/09/2022 Refused SOCIAL HISTORY Tobacco Use: Social History Observation Description Date Details (start date - stop date) Current Smoker NA - NA Sex Assigned At : Social History Observation Description Sex Assigned At Unknown Tobacco Use/Smoking Question Answer Notes Patient is a current smoker How many cigarettes a day do you smoke? 6-10 Alcohol Screen Question Answer Notes Did you have a drink contain ing alcohol in the past year? Yes How often did you have a dri nk containing alcohol in the past year? 2 to 3 times a week (3 points) How many drinks did you have on a typical day when you were drinking in the past year? 3 or 4 drinks (1 point) Points 4 Interpretation Positive PROBLEMS Problem Type ICD Code Onset Dates Problem Status W/U Status Risk SNOMED Code Notes Problem Colon cancer screening (Z12.11) Active confirmed 974396576 Problem Encounter for other preprocedural examination (Z01.818) Active confirmed [id number] PLAN OF TREATMENT Future Test Test Name Order Date COLONOSCOPY 04/09/2022 Insurance Providers Payer Name Payer Address Payer Phone Subscriber Number Group Number Insured Name Patient Relationship to Insured Coverage Start Date Coverage End Date [facility] [address] [place] [address] [id number] GERARDO OROZCO Self - patient is the insured MEDICAL (GENERAL) HISTORY Medical History History ICD Code BPH GERD Insomnia Glaucoma Surgical History Surgery Date(Month/Year) left hip replacement 2007 right hip replacement 2014 lasik both eyes 2007 left rotator cuff repair 2017 right knee replacement 2011
--- OUTSIDE RECORDS SUMMARY | 2024-11-03 15:39 | XMS_ITS | Encounter Summary ---
Author Name [facility] [place] [facility] [place] Organization [place] Address [address] [place] [address] Care Team Providers Care Senior Cost Analyst Name Role Phone ESTELLA JUNIOR Primary Care [...] Name Patient's Relationship to Policy Hilario BCBS [place] F[place] PREFERRED PROVIDER ORGANIZAT ION (PPO) PSHB BASIC SELF Oct 05, 2024 33A [id number] PAM, GERARDO PATIENT MEDICARE (WNR) MEDICARE (M) PART A Jun 05, 2016 PART A [id number] PAM, GERARDO PATIENT MEDICARE (WNR) MEDICARE (M) PART A Jun 05, 2016 PART A [id number] [id number] GERARDO OROZCO PATIENT Selected Encounter This section includes the information on record at ID for the Encounter. Date/Time Encounter Type Encounter Description Reason Provider Source Oct 04, 2024 11:26 AM QNHP OL DIG ASSMT&MGMT 5-10 CLINICAL PHARMACY ICD-10-CM L21.8 Other seborrheic dermatitis JUAN FRANCISCO BEGUM IHDom Encounter Template Text not used by [place] Assessments - Encounter Diagnoses This section includes the primary and secondary diagnoses documented for the Encounter. Date/Time Primary/Secondary Diagnosis Diagnosis Name Provider Source Oct 04, 2024 11:29 AM PRIMARY Other seborrheic dermatitis JUAN FRANCISCO BEGUM [place] [facility] [place] [facility] Plan of Treatment: Future Appointments (+ 6 months) and Future Tests (+/- 45 days) The Plan of Treatment section includes future care activities for the patient from all [place] treatmentfacilities. This section includes future appointments and future orders which are active, pending or scheduled. Future Appointments This section includes appointments that were scheduled to occur 6 months from the date of the Encounter, up to a maximum of 20 appointments. The data comes from all ID treatment facilities. Appointment Date/Time Appointment Type Appointme nt Facility Name February 02, 2025 08:30 AM AMBULATORY - MEDICINE [facility] Social History: Smoking Status (Most current) and Tobacco Use (All prior to encounter date) This section includes the most current, and the historical, smoking and tobacco- related health factors from the ID facility where the Encounter took place. Current Smoking Status This section includes the most current smoking, or tobacco-related health factor, from the [place] facility where the Encounter took place. Date/Time Current Smoking Status Comment Teri ity Aug 01, 2024 08:49 AM VA-TOBACCO [facility] USED [facility] Tobacco Use History This section includes a history of the smoking, or tobacco-related health factors, that were collected on or before the date of the Encounter. The data comes from the ID facility where the Encounter took place. 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 Date/Time Encounter Note(s) Provider Source Oct 04, 2024 11:26 AM PHARMACY OUTPATIEN T MEDICATION MGT NOTE: LOCAL TITLE: [facility] PRESCRIPTION NOTE STANDARD TITLE: PHARMACY OUTPATIENT MEDICATION MGT NOTE DATE OF NOTE: OCT 04, 2024@11:26 ENTRY DATE: OCT 04, 2024@11:27:05 AUTHOR: JUDI BEGUM EXP COSIGNER: URGENCY: STATUS: COMPLETED Pharmacy has received a [facility] prescription. The prescription below CANNOT BE FILLED due to the absence of an active consult. eRx Drug: ketoconazole 2 % topical cream [facility]: [id number] Written Date: OCT 04, 2024@15:34:26 Qty: 60 Refills: 3 eRx Sig: Apply twice daily to area of flake on face until resolution Name of CC Provider: RODRÍGUEZ ABAD Type of Community Care Provider: [facility] Please re-write the above prescription for the OR input a new consult. IF A NEW CONSULT IS PLACED PLEASE: 1. Reach out to the to have them get a new prescription, OR 2. Call the community care provider's office directly for them to resend Thank you /yoon/ JUDI BEGUM PHARMD. [facility] Clinical Pharmacist Signed: 10/04/2024 11:29 Receipt Acknowledged By: 10/04/2024 11:42 /es/ EBENEZER CARRION CERTIFIED NURSE PRACTITIONER 10/04/2024 14:32 /yoon/ AMILCAR MALDONADO RN REGISTERED NURSE JUDI BEGUM [facility]
--- OUTSIDE RECORDS SUMMARY | 2024-11-03 15:39 | XMS_ITS ---
Author Name [facility] [place] Organization [place] Address [address] [place] [address] Care Team Providers Care Chore Worker Name Role Phone ESTELLA JUNIOR Primary Care [...] Name Patient's Relationship to Policy Hilario BCBS [place] FEP PREFERRED PROVIDER ORGANIZAT ION (PPO) PSHB BASIC SELF Oct 05, 2024 33A [id number] PAM GERARDO PATIENT MEDICARE (WNR) MEDICARE (M) PART A Jun 05, 2016 PART A [id number] PAM, GERARDO PATIENT MEDICARE (WNR) MEDICARE (M) PART A Jun 05, 2016 PART A [id number] GERARDO OROZCO PATIENT Selected Encounter This section includes the information on record at [place] for the Encounter. Date/Time Encounter Type Encounter Description Reason Pro vider Source Dec 13, 2023 11:20 PM Outpatient Encounter ADMIN PAT ACTIVTIES (MASNONCT) IHE Encounter Template Text not used by [place] Plan of Treatment: Future Appointments (+ 6 months) and Future Tests (+/- 45 days) The Plan of Treatment section includes future care activities for the patient from all VA treatmentfacilities. This section includes future appointments and future orders which are active, pending or scheduled. Future Appointments This section includes appointments that were scheduled to occur 6 months from the date of the Encounter, up to a maximum of 20 appointments. The data comes from all [place] treatment facilities. Appointment Date/Time Appointment Type Appointme nt Facility Name February 04, 2024 08:30 AM AMBULATORY - MEDICINE [facility] February 09, 2024 01:00 PM [facility] Social History: Smoking Status (Most current) and Tobacco Use (All prior to encounter date) This section includes the most current, and the historical, smoking and tobacco- related health factors from the [place] facility where the Encounter took place. Current Smoking Status This section includes the most current smoking, or tobacco-related health factor, from the [place] facility where the Encounter took place. Date/Time Current Smoking Status Comment Facil ity Aug 06, 2023 08:50 AM VA-[facility]BACCO [facility]ESNT [facility] Tobacco Use History This section includes a history of the smoking, or tobacco-related health factors, that were collected on or before the date of the Encounter. The data comes from the [place] facility where the Encounter took place. Date/Time Smoking Status/Tobacco Use Comment F acility Aug 06, 2023 08:50 AM VA-TOBACCO USE 30 YEARS OR MORE NV [facility] [place] [facility] Aug 06, 2023 08:50 AM VA-TOBACCO USE ADVICE [place] [facility] [place] [facility] Aug 06, 2023 08:50 AM VA-TOBACCO USE TRENCH TRIMMER FINE NO [place] [facility] [place] [facility] Aug 06, 2023 08:50 AM VA-TOBACCO USE MED NO [place] [facility] [place] [facility] Aug 06, 2023 08:50 AM VA-TOBACCO USER SOME DAYS [facility] Encounter Notes: All associated encounter notes This section contains the clinical notes associated to the Encounter. Date/Time Encounter Note(s) Provider Source Dec 13, 2023 11:20 PM PHARMACY NOTE: LOCAL TITLE: V1 PHARMACY CUSTOMER CARE MEDICATION RENEWAL STANDARD TITLE: PHARMACY NOTE DATE OF NOTE: DEC 13, 2023@23:20 ENTRY DATE: DEC 13, 2023@23:20:44 AUTHOR: QUIANA GARCIA EXP COSIGNER: URGENCY: STATUS: COMPLETED Date: Dec Division: [facility] referred by Pharmacy Call Center for medication renewal: Non-controlled/maintenan ce medication Medications requested: [id number] APIXABAN 2.5MG TABLET has 4 days of medication remaining, please alert outpatient pharmacy when order is placed so it can be expedited Defer to primary care provider To be mailed . Please review and renew if appropriate. *This note was generated by [facility]/[place] Pharmacy Customer Care. If you have any questions or need assistance, do not contact this author. Please refer all questions to your local, on-site pharmacy departments. /yoon/ QUIANA GARCIA CPhT Bond Manager, [place]/Pharmacy Customer Care Signed: 12/13/2023 23:21 Receipt Acknowledged By: 12/14/2023 08:04 /yoon/ EBENEZER CARRION CERTIFIED NURSE PRACTITIONER 12/14/2023 08:36 /yoon/ URSULA FIGUEROAN,RN-BC REGISTERED NURSE (RN) QUIANA GARCIA [place] [facility]
--- OUTSIDE RECORDS SUMMARY | 2024-11-03 15:39 | XMS_ITS | Encounter Summary ---
Author Name [place] Address [address] [place] [id number] Care Team Providers Care Office Manager Name Role Phone ESTELLA JUNIOR Primary Care [...] Name Patient's Relationship to Policy Hilario BCBS [place] FEP PREFERRED PROVIDER ORGANIZAT ION (PPO) PSHB BASIC SELF Oct 05, 2024 33A [id number] GERARDO OROZCO PATIENT MEDICARE (WNR) MEDICARE (M) PART A Jun 05, 2016 PART A [id number] 38A GERARDO OROZCO PATIENT MEDICARE (WNR) MEDICARE (M) PART A Jun 05, 2016 PART A [id number] GERARDO OROZCO PATIENT Selected Encounter This section includes the information on record at [place] for the Encounter. Date/Time Encounter Type Encounter Description Reason Provider Source February 04, 2024 08:30 AM OFFICE O/P EST MOD 30 MIN PRIMARY CARE/MEDICINE ICD-10-CM I73.9 Peripheral vascular disease, unspecified ESTELLA JUNIOR Encounter Template Text not used by [place] Assessments - Encounter Diagnoses This section includes the primary and secondary diagnoses documented for the Encounter. Date/Time Primary/Secondary Diagnosis Diagnosis Name Provider Source March 01, 2024 04:48 PM PRIMARY Peripheral vascular disease, unspecified ESTELLA JUNIOR [place] March 01, 2024 04:48 PM SECONDARY Benign prostatic hyperplasia without lower urinry tract symp ESTELLA JUNIOR [place] March 01, 2024 04:48 PM SECONDARY Chronic kidney disease, stage 3a ESTELLA JUNIOR March 01, 2024 04:48 PM SECONDARY Emphysema, unspecified ESTELLA JUNIOR [place] March 01, 2024 04:48 PM SECONDARY Gastro-esophageal reflux disease without esophagitis ESTELLA JUNIOR [place] March 01, 2024 04:48 PM SECONDARY 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 This section includes future appointments and future orders which are active, pending or scheduled. Future Appointments This section includes appointments that were scheduled to occur 6 months from the date of the Encounter, up to a maximum of 20 appointments. The data comes from all [place] treatment facilities. Appointment Date/Time Appointment Type Appointme nt Facility Name February 09, 2024 01:00 PM AMBULATORY - NONE [facility] Aug 01, 2024 08:30 AM AMBULATORY - MEDICINE [facility] Vital Signs: All taken on the encounter date This section contains inpatient and outpatient Vital Signs collected on the date of the Encounter. Date/Time Temperature Pulse Blood Pressure Respiratory Rate SP02 Pain Height Weight Body Mass Index Source February 04, 2024 08:28 AM 97.9 86 144/83 19 98 73 187 25 [facility] Social History: Smoking Status (Most current) and Tobacco Use (All prior to encounter date) This section includes the most current, and the historical, smoking and tobacco- related health factors from the [place] facility where the Encounter took place. Current Smoking Status This section includes the most current smoking, or tobacco-related health factor, from the [place] facility where the Encounter took place. Date/Time Current Smoking Status Comment Teri ity Aug 06, 2023 08:30 AM VA-TOBACCO FORMER USER [place] Tobacco Use History This section includes a history of the smoking, or tobacco-related health factors, that were collected on or before the date of the Encounter. The data comes from the [place] facility where the Encounter took place. Date/Time Smoking Status/Tobacco Use Comment F acility Aug 06, 2023 08:30 AM VA-TOBACCO QUIT < 1 YEAR [place] Dec 18, 2021 10:00 AM VA-TOBACCO DOESNT USE WI 30 MIN WAKEUP [place] Dec 18, 2021 10:00 AM VA-TOBACCO USE 30 YEARS OR MORE [place] Dec 18, 2021 10:00 AM VA-TOBACCO USE ADVICE [place] Dec 18, 2021 10:00 AM VA-TOBACCO USE WHARF OPERATOR NO [place] Dec 18, 2021 10:00 AM VA-TOBACCO USE MED NO [place] Dec 18, 2021 10:00 AM VA-TOBACCO USER EVERY DAY [place] Dec 13, 2020 11:00 AM VA-TOBACCO DOESNT USE WI 30 MIN WAKEUP [place] Dec 13, 2020 11:00 AM VA-TOBACCO USE 30 YEARS OR MORE [place] Dec 13, 2020 11:00 AM VA-TOBACCO USE ADVICE [place] Dec 13, 2020 11:00 AM VA-TOBACCO USE WHARF OPERATOR NO [place] Dec 13, 2020 11:00 AM VA-TOBACCO USE MED NO [place] Dec 13, 2020 11:00 AM VA-TOBACCO USER EVERY DAY [place] Aug 13, 2018 09:36 AM VA-TOBACCO USE DEC LINED TO ANSWER [place] Aug 21, 2017 09:31 AM CURRENT SMOKER reports smoking 1 pack/week [place] Aug 21, 2017 09:31 AM QUIT TOBACCO USE I N PAST YEAR Pt doing well. [place] Oct 13, 2016 08:45 AM CURRENT SMOKER [facility] Oct 13, 2016 08:45 AM V1-PT NOT INTEREST ED IN QUIT TOBACCO USE [place] Mar 08, 2015 08:27 AM V1-PT READY TO PRAKASH T TOBACCO USE [place] Jan 19, 2015 08:49 AM QUIT TOBACCO USE I N PAST YEAR [place] May 27, 2013 09:14 AM CURRENT SMOKER Pt. stated he smokes 4 cigarettes a day! [place] May 27, 2013 09:14 AM V1-PT THINKING ABO UT QUIT TOBACCO USE [place] Jan 18, 2002 02:04 PM HISTORY OF SMOKING Stopped 4 months ago [place] Radiology Reports: +/- 30 days of the [...] the Encounter. The data comes from all [place] treatment facilities. Date/Time Radiology Report Provider Source February 09, 2024 01:16 PM LDCT LUNG CANCER SCREENING: GERARDO OROZCO [id number] -[id number] M Exm Date: FEBRUARY 09, 2024@13:16 Req Phys: ESTELLA JUNIOR Loc: CWM/NO/LCS CHART CONSULT (Req' Img Loc: NHM/CT Service: Unknown [place] [facility] [place] [facility] , (Case [id number] COMPLETE) LDCT LUNG CANCER SCREENING (CT Detailed) CPT:47378 Reason for Study: Lung Cancer Screening Clinical History: 51 TPY Quit 2022 Medical Hx: Emphysema, GERD, CKD, hx of malignant basal cell neoplasm of skin. Family hx malignancy: Sister survivor of Breast cancer. Comparison: CT Thorax 01/29/23, 01/29/22, 12/24/20 Report Status: Verified Date Reported: FEBRUARY 09, 2024 Date Verified: FEBRUARY 09, 2024 Spreading Machine Operator E-Sig:/ES/LENCHO WALTON JR Report: Study: Lung cancer [...] reviewed. Secondary computer-aided detection with post-processing from [employer] is used. The lack of intravenous contrast [...] Primary Interpreting Staff: LENCHO WALTON JR, Radiologist (Spreading Machine Operator) /LENCHO GARCIA JR [facility] Encounter Notes: All associated encounter notes This section contains the clinical notes associated to the Encounter. Date/Time Encounter Note(s) Provider Source February 04, 2024 08:20 AM PRIMARY CARE NURSE PRACTITIONER OUTPATIENT NOTE: LOCAL TITLE: NURSE PRACTITIONER OUTPATIENT NOTE STANDARD TITLE: PRIMARY CARE NURSE PRACTITIONER OUTPATIENT NOTE DATE OF NOTE: FEBRUARY 04, 2024@08:20 ENTRY DATE: FEBRUARY 04, 2024@08:20:07 AUTHOR: ESTELLA JUNIOR EXP COSIGNER: URGENCY: STATUS: COMPLETED PRIMARY CARE VISIT GERARDO Neris OROZCO, is a 73 y/o WHITE MALE [place] who [facility] the [place] [facility]. TYPE OF VISIT: Face to face HPI: COPD - quit smoking 2023. Doesn't require inhaler, denies cough, SOB. Had LDCT 01/29/23 - normal. Has f/u on 02/09/24. PVD - no longer taking apixaban. CKD stage 3 - GFR stable at 53. Insomnia - takes trazodone, sleeping well. GERD - takes PPI q3 days, symptoms stable. BPH - on Flomax. Asymptomatic. Intermittent right foot numbness, only happens when driving for extended periods. Sees Neuro, had MRI that showed L1-L2 stenosis, bulging disc. L3, L4, L5, S1 OA. Denies lumbar pain. To f/u with neurosurgery end of February. Hx vein bypass LLE d/t thrombosis. Has chronic numbness from left yanes down, no pain. 07/29/23 labs reviewed. All medications were reconciled during this visit. HISTORY: PERIOD OF SERVICE - [employer] FROM Nov TO Jul COMBAT SERVICE INDICATED: No VITAL SIGNS: Blood Pressure: 144/83 (02/04/2024 08:28) Pain: 0 (09/12/2019 13:29) Patient Height: 73 in [185.4 cm] (02/04/2024 08:28) Patient Weight: 187 lb [84.82 kg] (02/04/2024 08:28) Pulse: 86 (02/04/2024 08:28) Respiration: 19 (02/04/2024 08:28) Temperature: 97.9 F [36.6 C] (02/04/2024 08:28) REVIEW OF SYSTEMS: CONSTITUTIONAL: No fevers, chills, unexpected weight changes. CARDIOVASCULAR: No chest pain, palpitations or peripheral edema. RESPIRATORY: No SOB, cough, sputum, wheeze. GASTROINTESTINAL: Denies abdominal pain, N/V/D/C. GENITOURINARY: No dysuria, hematuria, urinary frequency or urgency. No nocturia. MUSCULOSKELETAL: No myalgias or arthralgias. PSYCHIATRIC: No new anxiety or depression. No sleep disturbance. NEUROLOGIC: No headaches, dizziness or unilateral weakness. Chronic numbness LLE, intermittent numbness right foot. PHYSICAL EXAMINATION: General: Well-appearing [place] in no obvious distress. Mental Status: Alert and oriented x4. Neck: Supple. No JVD. No lymphadenopathy. No bruit. Thyroid unremarkable. Lungs: CTAB. Normal chest excursion. Eupneic respirations. CV: Heart tones S1, S2. RRR. No M/G/R. No peripheral edema. + pedal pulses. GI: Abdomen is soft and nontender. No palpable mass or organomegaly. Ext: No cyanosis or clubbing. No gross deformities. MS: Full ROM all joints Neuro: CN II through XII grossly intact. Normal speech. Normal gait. Absent sensation LLE. Psych: Normal mood and affect. Normal judgment. Cooperative with exam, follows commands. ALLERGIES: Patient has answered [facility] - see end of note PREVENTIVE MEDICINE GOALS Advance Directive Screen AD February 03 Colonoscopy GAP Reminder DUE NOW Influenza Immunization DUE NOW Medication Reconciliation DUE NOW Td / Tdap Immunization May 27 COVID-19 Immunization DUE NOW RHS Screen DUE NOW PAVE Foot Check DUE NOW ASSESSMENT/PLAN: Active problems - Computerized Problem List is the source for the followin. Peripheral vascular disease - no longer taking apixaban. Start low dose ASA. 2. Benign prostatic hypertrophy - stable on Rx 3. Persistent insomnia - stable on Rx 4. Pulmonary emphysema - quit smoking 2022. Asymptomatic. Has upcoming LDCT. 5. Gastroesophageal reflux disease - stable on PRN PPI 6. Chronic kidney disease stage 3A - GFR stable. Monitor labs, risk vs benefit of nephrotoxic medications. 7. neuropathy LLE - d/t his vein bypass. No pain. 8. Intermittent neuropathy right foot - has upcoming appt with neurosurgery to discuss. 9. Lumbar stenosis - no pain. FOLLOW UP: Return to clinic as noted below and/or sooner PRN UPCOMING APPOINTMENTS: 02/04/2024 08:30 CWM/SO/PACT 7 02/09/2024 13:00 CWM/NO/CAT SCAN No barriers noted; patient understands and agrees to current treatment plan. If patient has any questions, concerns or changes in current health status he/she will call or come in to the [facility]. HM: Influenza Immunization: The patient declines to receive the recommended dose of seasonal influenza vaccine. Immunization: INFLUENZA, UNSPECIFIED FORMULATION Refusal Reason: PATIENT DECISION Patient refuses all immunization(s) in the FLU group Date Documented: 02/07/24 11:33 Medication Reconciliation: Outpatient: Has the patient been taking medications as documented in the EMLR? No: Discrepencies were identified. See below. Essential Medication List for Review used to complete this medication reconciliation. INCLUDED IN THIS LIST: Alphabetical list of active outpatient prescriptions dispensed from this [place] (local) and dispensed from another [place] or [facility] facility (remote) as well as inpatient orders (local, pending and active), local clinic medications, locally documented non-VA medications, and local prescriptions that have or been discontinued in the past 90 days. - Discrepancies were identified, addressed, and discussed with the patient/caregiver at this encounter. - All changes in medications, including all non-VA/Herbal/OTC medications were entered into CPRS. - If there were any medications the patient should no longer take, they were discontinued. D/C'd meds: no longer taking apixaban - The patient/caregiver was instructed to update this list, discard old lists, and take this list to the next appointment, whether with a VA or non-VA provider. PAVE Foot Check: A complete foot check was completed at this encounter. VISUAL INSPECTION: Includes inspection for skin breaks, deformity, erythema, trauma, pallor on elevation, dependent rubor, nail deformities, extensive callus and pitting edema. Visual exam results: Normal PEDAL PULSES: Includes palpation of dorsalis and posterior tibial pulses and signs/symptoms of vascular compromise like pain, pallor, parasthesia or paralysis. Present (even if diminished) SENSORY CHECK: Includes 10 gram Monofilament (Dulce-Matt) test of sensation. Intact (Greater than or equal to 80% of sites checked) Abnormal (Less than 80% of sites checked): Abnormal (decreased or absent sensation to monofilament): Comment: absent sensation left foot, no hair growth LLE HIGH-RISK: HIGH RISK INFORMATION PROVIDED: 1. Advised patient that extra depth footwear with soft molded inserts and braces may be required. 2. Advised patient not to walk barefoot. 3. Explained the importance of daily foot checks. 4. Stressed the importance of daily foot hygiene, including bathing, complete drying and thorough inspection for changes. The patient verbalized understanding and was offered a detailed handout on diabetic foot care. Patient declined referral to Podiatry. Will follow up with Primary Care as scheduled. Follow Up Colonoscopy: Colonoscopy is due based on information available to this reminder. Prior/outside Colonoscopy results: negative findings, repeat ten years Date: May 14, 2022 No further average risk screening is recommended/indicated due to the patient's age. Screening for patients between 76-84 can be considered based on an assessment of the patient and his/her preferences. /yoon/ EBENEZER CARRION CERTIFIED NURSE PRACTITIONER Signed: 02/07/2024 11:40 ESTELLA JUNIOR [place]
--- OUTSIDE RECORDS SUMMARY | 2024-11-03 15:39 | XMS_ITS | Clinical Summary ---
Author Organization [employer] [facility] it Address [address] [place] [address] Care Team Providers Care Timber Management Specialist Name Role Phone Bobby Deleon MD Primary Care Provider [phone] Surgical History Surgery Date Site/Laterality Comments BACK SURGERY PROCEDURE: HISTORICAL BACK SURGERY COLONOSCOPY PROCEDURE: HISTORICAL COLONOSCOPY KNEE SURGERY PROCEDURE: HISTORICAL KNEE SURGERY Medical History Medical History Date Comments BPH (benign prostatic hyperplasia) DX:BPH (benign prostatic hyperplasia) COPD (chronic obstructive pu lmonary disease) ([facility]/HCC) DX:COPD (chronic obstructive pulmonary disease) ([facility]) GERD (gastroesophageal reflux disease) DX:GERD (gastroesophageal reflux disease) Social History Tobacco Use Types Packs/Day Years Used Date Smoking Tobacco: Every Day Cigarettes Smokeless Tobacco: Never Alcohol Use Standard Drinks/Week Comments Not Asked 0 (1 standard drink = 0.6 oz pur e alcohol) Sex and Gender Information Value Date Recorded Sex Assigned at Not on file Gender Identity Not on file Sexual Orientation Not on file Obstetrics History Last Filed Vital Signs Vital Sign Reading Time Taken Comments Blood Pressure 120/72 12/02/2022 3:16 PM EST Pulse 94 12/02/2022 3:16 PM EST Temperature - - Respiratory Rate - - Oxygen Saturation - - Inhaled Oxygen Concentration - - Weight 88 kg (194 lb) 12/02/2022 3:16 PM EST Height 185.4 cm (6' 1 ) 12/02/2022 3:16 PM EST Body Mass Index 25.6 12/02/2022 3:16 PM EST Plan of Treatment Health Maintenance Due Date Last Done Comments Pneumococcal Vaccine: 65+ Ye ars (1 of 2 - PCV) 1957 DTaP,Tdap,and Td Vaccines (1 - Tdap) 1970 Zoster Vaccines (1 of 2) 2001 Abdominal Aortic Aneurysm (A AA) Screen 09/03/2022 Cholesterol Screening (Lipid Panel) 09/03/2022 Colorectal Cancer Screening: Colonoscopy 09/03/2022 Depression Screening 09/03/2022 Falls Risk Assessment 09/03/2022 Hepatitis C Screening 09/03/2022 Social Influencers of Health Screening 09/03/2022 Hypertension/CHF/CAD Annual BMP Blood Test 11/20/2023 COVID-19 Vaccine (1 - 2023-2 5 season) 2024 Influenza Vaccine (#1) 2024 RSV Immunization Patients 60 + Years Old (1 - 1-dose 75+ series) 2026 HIB Vaccines Aged Out No longer eligi ble based on patient's age to complete this topic HPV Vaccines Aged Out No longer eligi ble based on patient's age to complete this topic Hepatitis A Vaccines Aged Out No long er eligible based on patient's age to complete this topic Hepatitis B Vaccines Aged Out No long er eligible based on patient's age to complete this topic IPV Vaccines Aged Out No longer eligi ble based on patient's age to complete this topic MMR Vaccines Aged Out No longer eligi ble based on patient's age to complete this topic Meningococcal ACWY Vaccine Aged Out N o longer eligible based on patient's age to complete this topic RSV Immunization Patients Un martin 20 months Aged Out No longer eligible b ased on patient's age to complete this topic Varicella Vaccines Aged Out No longer eligible based on patient's age to complete this topic Care Teams Timber Management Specialist Relationship Specialty Start Date End Date Bobby Deleon MD [address] [place] [address] Dr Cristal [place] PCP - General Sole Stitcher Hand 12/31/17
--- OUTSIDE RECORDS SUMMARY | 2024-11-03 15:39 | XMS_ITS ---
Author Name [facility] [place] [facility] [place] Address [address] [place] [address] Care Team Providers Care Angle Bender Name Role Phone ESTELLA JUNIOR Primary Care [...] Name Patient's Relationship to Policy Hilario BCBS HI FEP PREFERRED PROVIDER ORGANIZAT ION (PPO) PSHB BASIC SELF Oct 05, 2024 33A [id number] PAM, GERARDO PATIENT MEDICARE (WNR) MEDICARE (M) PART A Jun 05, 2016 PART A [id number] PAM, GERARDO PATIENT MEDICARE (WNR) MEDICARE (M) PART A Jun 05, 2016 PART A [id number] PAM, GERARDO PATIENT Selected Encounter This section includes the information on record at [place] for the Encounter. Date/Time Encounter Type Encounter Description Reason Pro vider Source Oct 07, 2024 11:22 AM Outpatient Encounter PRIMARY CARE/MEDICINE IHE Encounter Template Text not used by [place] Plan of Treatment: Future Appointments (+ 6 [...] 02, 2025 08:30 AM AMBULATORY - MEDICINE [facility] Social History: Smoking Status (Most current) [...] Current Smoking Status Comment Facil ity Aug 01, 2024 08:49 AM [place] [facility] [place] [facility] Tobacco Use History This section includes a history of the smoking, or tobacco-related health factors, that were collected on or before the date of the Encounter. The data comes from the [place] facility where the Encounter took place. Date/Time Smoking Status/Tobacco Use Comment F acility Aug 06, 2023 08:50 AM VA-TOBACCO DOESNT USE [place] 30 MIN WAKEUP [place] [facility] [facility] [facility] Aug 06, 2023 08:50 AM VA-TOBACCO USE 30 YEARS OR MORE [place] [facility] [place] [facility] Aug 06, 2023 08:50 AM VA-TOBACCO USE ADVICE [place] [facility] [place] [facility] Aug 06, 2023 08:50 AM VA-TOBACCO USE PIGS FEET CLEANER NO [place] [facility] [facility] Aug 06, 2023 08:50 AM VA-TOBACCO USE MED NO [place] [facility] [place] [facility] Aug 06, 2023 08:50 AM VA-TOBACCO USER SOME DAYS [place] [facility] [facility] Encounter Notes: All associated encounter notes This section contains the clinical notes associated to the Encounter. Date/Time Encounter Note(s) Provider Source Oct 07, 2024 11:22 AM PRIMARY CARE NOTE: LOCAL TITLE: WALK-IN NOTE PRIMARY CARE (T) STANDARD TITLE: PRIMARY CARE NOTE DATE OF NOTE: OCT 07, 2024@11:22 ENTRY DATE: OCT 07, 2024@11:22:16 AUTHOR: PARMENTIER,ANGELICA EXP COSIGNER: URGENCY: STATUS: COMPLETED <====Click to Start Advanced Medical Support presents to the Primary Care clinic with the following request: [ X ]Medication Renewal/Refill [ ]Consultation with Team RN [ ]Symptoms [ ]Other The states they are: [ ]Waiting [ X ]Not Waiting No Walk in visit scheduled with PACT Nurse [ X ] At this encounter the Worthington's demographics were verified. [ ] At this encounter the Worthington's Insurance information was verified. [ ] At this encounter the below scheduled visits for the [place]thing[place] were discussed and appointment reminder card was offered. 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
--- OUTSIDE RECORDS SUMMARY | 2024-11-03 15:39 | XMS_ITS | Continuity of Care Document ---
Author Organization [facility] Address [address] [place] [address]- Care Team Providers Care Jail Officer Name Role Phone Bobby Deleon MD Primary Care Physician Encounter [facility] NBR [id number] Date(s): 09/07/24 - 10/07/24 [facility] [address], [place] [address] Encounter Type: Triage Allergies, Adverse Reactions, Alerts No Known Allergies Medications aspirin 81 mg oral tablet, chewable 81 mg, 1, tablet, By Mouth, Daily, # 30 tablet, Refills 0, Maintenance, 08/31/24 3:52:00 PM EST, Partial fill upon patient request if the prescription is for a schedule II opioid drug. Start Date: 08/31/24 Status: Ordered Quantity: 30.0 Unit: tablet Repeat number: 1 traZODone 100 mg oral tablet Refills 0, Maintenance, 08/25/23 9:42:00 AM EST, Partial fill upon patient request if the prescription is for a schedule II opioid drug. Start Date: 08/25/23 Status: Ordered Repeat number: 1 Social History Social History Type Response Smoking Status Former smoker, quit more than 30 days ago entered on: 08/25/23 Sex Sex Representation Male (finding) Patient Care team information Care Team Personnel Name: Yolanda Jiménez NP Position: [facility] PCO Associate Professional Member Role: Primary Care Nurse Name: Mihaela Araiza RN Position: [facility] SN RN Member Role: Primary Care Nurse Name: Bobby Deleon MD Position: [facility] Outreach Member Role: PCP Address: [address] [place] [address] [place] [address]- [place] [employer]: Name: Tracy Tabor RN Position: S RN Member Role: Primary Care Nurse Name: Evelia Kennedy RN Position: S RN Member Role: Primary Care Nurse Care Team Related Persons Name: NEO RIBEIRO Insurance Providers Guarantor name: [facility] Information #: 1 Payer: [employer] Member Number: NA Policy Number: NA Group Number: NA
--- OUTSIDE RECORDS SUMMARY | 2024-11-03 15:39 | XMS_ITS | Encounter Summary ---
Author Name [facility] Organization [facility] [place] Address [address] [place] [address] Care Team Providers Care Label Paster Name Role Phone ESTELLA JUNIOR Primary Care [...] PSHB BASIC SELF Oct 05, 2024 33A [id number] GERARDO OROZCO PATIENT MEDICARE (WNR) MEDICARE (M) PART A Jun 05, 2016 PART A [id number] GERARDO OROZCO PATIENT MEDICARE (WNR) MEDICARE (M) PART A Jun 05, 2016 PART A [id number] GERARDO OROZCO PATIENT Selected Encounter This section includes the information on record at [place] for the Encounter. Date/Time Encounter Type Encounter Description Reason Provider Source Aug 01, 2024 08:30 AM OFFICE O/P EST MOD 30 MIN PRIMARY CARE/MEDICINE ICD-10-CM J43.9 Emphysema, unspecified ESTELLA JUNIOR Encounter Template Text not used by [facility] Assessments - Encounter Diagnoses This section includes the primary and secondary diagnoses documented for the Encounter. Date/Time Primary/Secondary Diagnosis Diagnosis Name Provider Source Aug 16, 2024 02:34 PM PRIMARY Emphysema, unspecified ESTELLA JUNIOR D[facility] Aug 16, 2024 02:34 PM SECONDARY Chronic kidney disease, stage 3a ESTELLA JUNIOR D[facility] Aug 16, 2024 02:34 PM SECONDARY Nicotine dependence, unspecified, uncomplicated ESTELLA JUNIOR D[facility] Aug 16, 2024 02:34 PM SECONDARY Other insomnia VERNONESTELLA Dung [facility] Aug 16, 2024 02:34 PM SECONDARY Peripheral vascular disease, unspecified VERNONESTELLA Dung [facility] Aug 16, 2024 02:34 PM SECONDARY Personal history of other malignant neoplasm of skin VERNONESTELLA C [facility] Vital Signs: All taken on the encounter date This section contains inpatient and outpatient Vital Signs collected on the date of the Encounter. Date/Time Temperature Pulse Blood Pressure Respiratory Rate SP02 Pain Height Weight Body Mass Index Source Aug 01, 2024 08:46 AM 98 86 106/63 18 96 73 181 24 [facility] IE Social History: Smoking Status (Most current) and Tobacco Use (All prior to encounter date) This section includes the most current, and the historical, smoking and tobacco- related health factors from the [place] facility where the Encounter took place. Current Smoking Status This section includes the most current smoking, or tobacco-related health factor, from the [place] facility where the Encounter took place. Date/Time Current Smoking Status Comment Facil ity Aug 06, 2023 08:30 AM VA-TOBACCO FORMER USER [facility] Tobacco Use History This section includes a history of the smoking, or tobacco-related health factors, that were collected on or before the date of the Encounter. The data comes from the [place] facility where the Encounter took place. Date/Time Smoking Status/Tobacco Use Comment F acility Aug 06, 2023 08:30 AM VA-TOBACCO QUIT < 1 YEAR [facility] Dec 18, 2021 10:00 AM VA-TOBACCO DOESNT USE WI 30 MIN WAKEUP [facility] Dec 18, 2021 10:00 AM VA-TOBACCO USE 30 YEARS OR MORE [facility] Dec 18, 2021 10:00 AM VA-TOBACCO USE ADVICE [facility] Dec 18, 2021 10:00 AM VA-TOBACCO USE UTILIZATION COORDINATOR NO [facility] Dec 18, 2021 10:00 AM VA-TOBACCO USE MED NO [facility] Dec 18, 2021 10:00 AM VA-TOBACCO USER EVERY DAY [facility] Dec 13, 2020 11:00 AM VA-TOBACCO DOESNT USE WI 30 MIN WAKEUP [facility] Dec 13, 2020 11:00 AM VA-TOBACCO USE 30 YEARS OR MORE [facility] Dec 13, 2020 11:00 AM VA-TOBACCO USE ADVICE [facility] Dec 13, 2020 11:00 AM VA-TOBACCO USE UTILIZATION COORDINATOR NO [facility] Dec 13, 2020 11:00 AM VA-TOBACCO USE MED NO [facility] Dec 13, 2020 11:00 AM VA-TOBACCO USER EVERY DAY [facility] Aug 13, 2018 09:36 AM VA-TOBACCO USE DEC LINED TO ANSWER [facility] Aug 21, 2017 09:31 AM CURRENT SMOKER reports smoking 1 pack/week [facility] Aug 21, 2017 09:31 AM QUIT TOBACCO USE I N PAST YEAR Pt doing well. [facility] Oct 13, 2016 08:45 AM CURRENT SMOKER [facility] Oct 13, 2016 08:45 AM V1-PT NOT INTEREST ED IN QUIT TOBACCO USE [facility] Mar 08, 2015 08:27 AM V1-PT READY TO PRAKASH T TOBACCO USE [facility] Jan 19, 2015 08:49 AM QUIT TOBACCO USE I N PAST YEAR [facility] May 27, 2013 09:14 AM CURRENT SMOKER Pt. stated he smokes 4 cigarettes a day! [facility] May 27, 2013 09:14 AM V1-PT THINKING ABO UT QUIT TOBACCO USE [facility] Jan 18, 2002 02:04 PM HISTORY OF SMOKING Stopped 4 months ago [facility] Encounter Notes: All associated encounter notes This section contains the clinical notes associated to the Encounter. Date/Time Encounter Note(s) Provider Source Aug 01, 2024 08:21 AM PRIMARY CARE NURSE PRACTITIONER OUTPATIENT NOTE: LOCAL TITLE: NURSE PRACTITIONER OUTPATIENT NOTE STANDARD TITLE: PRIMARY CARE NURSE PRACTITIONER OUTPATIENT NOTE DATE OF NOTE: AUG 01, 2024@08:21 ENTRY DATE: AUG 01, 2024@08:21:15 AUTHOR: ESTELLA JUNIOR EXP COSIGNER: URGENCY: STATUS: COMPLETED PRIMARY CARE VISIT GERARDO Neris OROZCO, is a 74 y/o WHITE MALE [place] who presents today at the [place] [facility]. TYPE OF VISIT: Face to face HPI: COPD, smoker. Doesn't require O2, Rx. Quit smoking in 2022 but then started again. Smokes 4 cig/day LDCT 5/7/24 Denies SOB, AMTAO, cough PVD - no longer taking ASA per his decision. Followed by vascular surgery Insomnia - has trazodone at HS but states it doesn't always work. CKD stage 3 - no recent labs. No labs since 2022, Community PCP has ordered labs but he hasn't completed yet has 3 skin lesions to E, states biopsy shows they are benign. He has upcoming Moh's procedure scheduled with Derm. Has hx BCC All medications were reconciled during this visit. HEALTHCARE PROVIDERS: community PCP Derm vascular surgery Derm HISTORY: PERIOD OF SERVICE - [employer] FROM Nov TO Jul COMBAT SERVICE INDICATED: No VITAL SIGNS: Blood Pressure: 106/63 (08/01/2024 08:46) Pain: 0 (09/12/2019 13:29) Patient Height: 73 in [185.4 cm] (08/01/2024 08:46) Patient Weight: 181 lb [82.10 kg] (08/01/2024 08:46) Pulse: 86 (08/01/2024 08:46) Respiration: 18 (08/01/2024 08:46) Temperature: 98 F [36.7 C] (08/01/2024 08:46) REVIEW OF SYSTEMS: see HPI PHYSICAL EXAMINATION: General: Well-appearing in no obvious distress. Mental Status: Alert and oriented x4. Neck: Supple. No lymphadenopathy. No carotid bruit. Thyroid unremarkable. Lungs: CTAB. Normal chest excursion. Eupneic respirations. CV: Heart tones S1, S2. RRR. No M/G/R. No peripheral edema. Vascular changes noted BLE. GI: Abdomen is soft and nontender. No palpable mass or organomegaly. Neuro: CN II through XII grossly intact. Normal speech. Normal gait. Integument: three skin lesions noted to E Psych: Normal mood and affect. Normal judgment. Cooperative with exam, follows commands. ALLERGIES: Patient has answered [facility] MAINTENANCE - see end of note PREVENTIVE MEDICINE GOALS Suicide Screen Aug 06 Depression Screening Aug 06 Tobacco Use Screening Aug 06 Influenza Immunization DUE NOW Medication Reconciliation DUE NOW Td / Tdap Immunization May 27 Alcohol Use Screen (AUDIT-C) Aug 06 COVID-19 Immunization DUE NOW Sexual Orientation Aug 06 Eye Care At-Risk Screen DUE NOW (Optional) Whole Health Documentation DUE NOW ASSESSMENT/PLAN: Active problems - Computerized Problem List is the source for the followin. Peripheral vascular disease - recommend he restart ASA if recommended by vascular. 2. History of malignant basal cell neoplasm of skin - currently has 3 benign lesions to RLE, to have removed by Derm. 3. Persistent insomnia - increase trazodone to 200mg at HS 4. Pulmonary emphysema - no Rx, no O2. Declines referral to pulm. LDCT 02/09/24. 5. nicotine dependence - started smoking again. Not interested in cessation at this time. 6. Chronic kidney disease stage 3A - has upcoming labs per community PCP, will attempt to obtain results. Monitor labs, risk vs benefit of nephrotoxic medications. FOLLOW UP: Return to clinic as noted below and/or sooner PRN UPCOMING APPOINTMENTS: 08/01/2024 08:30 CWM/SO/PACT 7 No barriers noted; patient understands and agrees to current treatment plan. If patient has any questions, concerns or changes in current health status he/she will call or come in to the VA. HM: Influenza Immunization: Deferral / Refusal The patient declines to receive the recommended dose of seasonal influenza vaccine. Immunization: INFLUENZA, UNSPECIFIED FORMULATION Refusal Reason: PATIENT DECISION Patient refuses all immunization(s) in the FLU group Date Documented: 08/02/24 08:23 Medication Reconciliation: Outpatient: Has the patient been taking medications as documented in the EMLR? No: Discrepencies were identified. See below. Essential Medication List for Review used to complete this medication reconciliation. INCLUDED IN THIS LIST: Alphabetical list of active outpatient prescriptions dispensed from this [facility] (local) and dispensed from another [place] or [place] facility (remote) as well as inpatient orders (local, pending and active), local clinic medications, locally documented non-VA medications, and local prescriptions that have or been discontinued in the past 90 days. - Discrepancies were identified, addressed, and discussed with the patient/caregiver at this encounter. Discrepancies: not taking ASA, Flomax - All changes in medications, including all non-VA/Herbal/OTC medications were entered into [facility]S. - If there were any medications the patient should no longer take, they were discontinued. - The patient/caregiver was instructed to update this list, discard old lists, and take this list to the next appointment, whether with a VA or non-VA provider. /yoon/ EBENEZER CARRION CERTIFIED NURSE PRACTITIONER Signed: 08/02/2024 08:25 ESTELLA JUNIOR [facility]
--- OUTSIDE RECORDS SUMMARY | 2024-11-03 15:39 | XMS_ITS | Clinical Summary ---
Author Organization [facility] Address [address] [place] [address] Care Team Providers Care Business Process Associate Name Role Phone Bobby Deleon MD Primary Care Provider Social History Tobacco Use Types Packs/Day Years Used Date Smoking Tobacco: Never Assessed Sex and Gender Information Value Date Recorded Sex Assigned at Not on file Gender Identity Not on file Sexual Orientation Not on file Plan of Treatment Health Maintenance Due Date Last Done Comments Hepatitis C Screening 1950 COVID-19 Vaccine (#1) 1951 Depression Screening 1963 Preventative Health Evaluation 1969 DTap / Tdap / Td (1 - Tdap) 1970 Colon Cancer Screening (Colonoscopy) 1996 Shingrix-Zoster Vaccine (1 of 2) 2001 Fall Risk Assessment 2016 Pneumococcal Vaccine (1 of 1 - PCV) 2016 Influenza Vaccine (#1) 2024 RSV Adult > 60+ Yrs or Pregn ant (1 - 1-dose 75+ series) 2026 Hepatitis B Vaccines Aged Out No long er eligible based on patient's age to complete this topic RSV Ped < 20 months Aged Out No longe r eligible based on patient's age to complete this topic Care Teams Business Process Associate Relationship Specialty Start Date End Date Bobby Deleon MD [address] [place] [address] Dr [address] [place] [address] PCP - General Election Judge 12/31/17
== END 2024-11-03 11:44 | disposition home or self-care (01) ==
LOC: HO.10HDL 11:43
PROVIDERS: Visit Provider Internal Medicine
DX: I48.0 Paroxysmal atrial fibrillation (principal); H44.9 Unspecified disorder of globe; D64.9 Anemia, unspecified; N18.9 Chronic kidney disease, unspecified
CPT/HCPCS: 36415; 80053; 85025

== ENCOUNTER 2025-03-20 14:20 | Outpatient (REF) | payer BC, SELFPAY | END 2025-03-20 14:21 | disposition home or self-care (01) | LOC: HO.LAB 14:20 | PROVIDERS: PCP Internal Medicine; Visit Provider Physician Assistant | DX: H61.91 Disorder of right external ear, unspecified (principal); J44.9 Chronic obstructive pulmonary disease, unspecified; I73.9 Peripheral vascular disease, unspecified; N40.0 Benign prostatic hyperplasia without lower urinary tract symptoms | CPT/HCPCS: 87070; 87147; 87205 ==

== ENCOUNTER 2025-03-20 14:20 | Outpatient (AMB) | payer BC, SELFPAY ==
--- NOTE | 2025-03-20 14:25 | A.OFFPC_ITS ---
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 Peripheral artery disease-s/p left femoral to above-knee popliteal bypass 02/24 and left lower extremity thrombolysis. He does report incident of left calf tight[place], otherwise has been asymptomatic. No longer on Eliquis or any antiplatelet inhibitor. Not on statin. Follows with Dr. Stevens at [facility] vascular surgery. COPD-not on maintenance inhalers GERD-stable on omeprazole CKD stage 3-stable with creatinine 1.18. Cataract-left eye. S/p extraction. Continues on latanoprost Elevated PSA/BPH-following with [facility], not currently on medications. 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 S/p multiple Mohs procedures. Melvin Russell Cardenas Cigarette smoking-continue smoking about 8 cigarettes on a daily basis. Does follow for lung cancer screenings with the [place] Concerns: Procedure. Following with [place] dermatology Concerned about a lesion of the right external ear that has been present for several months. He was seen by prior PCP who thought this was related to a fungal condition and prescribed Lotrimin which has not been effective. There is some purulent drainage as well as swelling. There is pain when lying directly on the ear. ROS: General: No fevers, malaise, unintentional weight loss HEENT: No blurred vision, diplopia. see hpi Cardiovascular: No chest pain, palpitations, or leg edema Respiratory: No shortness of breath, wheezing, cough MSK: No myalgia, back pain Neuro: No headaches, weakness, paresthesias Skin: see hpi EXAM: Constitutional - Awake and Alert, No apparent distress Eyes - PERRL Cardiovascular - S1S2, RRR, No edema Respiratory - Normal lung expansion, Normal respiratory effort, No respiratory distress, CTA bilaterally Extremities - no calf tenderness bilaterally, no swelling Skin - Warm/Dry. Swelling of the pinna of the right ear with some purulent drainage noted. No warmth or significant erythema. Neurological - Alert & oriented x3 Psychological - Appropriate affect [facility] Medical History (Updated 03/20/25 @ 15:02 by ELBA Vasquez) Actinic keratosis Squamous cell carcinoma of skin History of femoral angiogram Glaucoma BPH (benign prostatic hyperplasia) GERD (gastroesophageal reflux disease) COPD (chronic obstructive pulmonary disease) Surgical History (Updated 03/17/25 @ 12:42 by Lizbeth Valente) Hx of total knee replacement Hx of bilateral hip replacements Status post right rotator cuff repair Hx of knee surgery History of back surgery Hx of colonoscopy (~05/06/22) Social History Household Members: None Housing: Condominium Are you a primary director critical care to a significant other at home: No Do you presently have visiting nurse or other home services: No Patient Tobacco Use Status: Former Tobacco user Tobacco use type: Cigarette Cigarettes Per Day: 4 Years Smoked: 50 Packs per year/per ci.00 Second Hand Smoke Exposure: No service: No Current occupational status: unemployed Questionnaire PHQ-9 Over the last 2 weeks, how often have you been bothered by any of the following problems? 1. Little interest or pleasure in doing things: not at all 2. Feeling down, depressed, or hopeless: not at all 3. Trouble falling or staying asleep, or sleeping too much: not at all 4. Feeling tired or having little energy: not at all 5. Poor appetite or overeating: not at all 6. Feeling bad about yourself - or that you are a failure or have let yourself or your family down: not at all 7. Trouble concentrating on things, such as reading the newspaper or watching television: not at all 8. Moving or speaking so slowly that other people could have noticed. Or the opposite - being so fidgety or restless that you have been moving around a lot more than usual: not at all 9. Thoughts that you would be better off or of hurting yourself in some way: not at all Total score: 0 Source: Developed by Drs. Isidro Madrigal, Xu Vieira and colleagues, with an educational mulu from [employer]. Thrive Questionnaire Date Thrive assessed: 03/20/25 I am a: Patient What is your living situation today?: I have a steady place to live Within the past 12 months, did the food you bought not last and you didn't have the money to get more?: Never true Within the past 12 months, did you worry whether your food would run out before you got money to buy more?: Never true Do you have trouble paying for medicines?: No Do you have trouble getting transportation to medical appointments?: No Do you have trouble paying your heating and electricity bill?: No Do you have trouble taking care of your child, family member or friend?: No Do you have trouble with day-to-day activities such as bathing, preparing meals, shopping, managing finances, etc.?: No Are you currently unemployed and looking for a job?: No Are you interested in more education?: No Please select the resources that you would like help with: None THRIVE Score: 0 CONNIE-7 AMB Questionnaire CONNIE-7 Date CONNIE - 7 assessed: 03/20/25 Feeling nervous, anxious, or on edge: 0 = Not at all Not being able to stop or control worryin = Not at all Worrying too much about different things: 0 = Not at all Trouble relaxin = Not at all Being so restless that it is hard to sit still: 0 = Not at all Becoming easily annoyed or irritable: 0 = Not at all Feeling afraid as if something awful might happen: 0 = Not at all Total CONNIE-7 score (0-4 normal; 5-9 mild; 10-14 moderate; 15-21 severe): 0 Source: Developed by Drs. Isidro Madrigal, Xu Vieira and colleagues, with an educational mulu from [employer]. Physical exam (Primary Care) Vital Signs: Last Vital Signs Temp 98.9 F 03/20/25 14:30 Pulse 88 03/20/25 14:30 Resp 16 03/20/25 14:30 BP 118/72 03/20/25 14:30 Pulse Ox 98 03/20/25 14:30 Oxygen Delivery Method Room Air 06/16/25 14:30 BMI result Body Mass Index 23.9 Tobacco/Smoking Status: Tobacco use Status Patient Tobacco Use Status Former Tobacco user 03/20/25 14:27 Tobacco use type Cigarette 03/20/25 14:27 PHQ-9: PHQ-9 Score PHQ-9: Total score 0 03/20/25 14:44 Thrive Assessment: Date of Thrive Assessment Date Thrive assessed 03/20/25 03/20/25 14:34 Coding Level of Care Code New Pt Level 4 (35669) Complex EM visit Add On G2211 Diagnoses Squamous cell carcinoma of skin C44.92 Lesion of right external ear H61.91 PAD (peripheral artery disease) I73.9 COPD (chronic obstructive pulmonary disease) J44.9 BPH (benign prostatic hyperplasia) N40.0 Assessment & Plan Assessment & Plan (1) Squamous cell carcinoma of skin: Code(s): C44.92 - Squamous cell carcinoma of skin, unspecified Category: Medical Plan: Records to be requested. Continue following with Dermatology. (2) Lesion of right external ear: Code(s): H61.91 - Disorder of right external ear, unspecified Category: Medical Plan: Wound culture obtained. Recommend follow-up with Dermatology. Can discontinue Lotrimin. We will consider antibiotic therapy pending results. Recommend warm compresses (3) PAD (peripheral artery disease): Comment: 12/29/2022 - left femoral to above knee popliteal bypass 02/18/2023 - left lower extremity thrombolysis Code(s): I73.9 - Peripheral vascular disease, unspecified Category: Medical Plan: Notes to be requested from [facility] vascular surgery. Continue following as scheduled. Stable claudication. Not currently on any statin therapy or blood thinners. (4) COPD (chronic obstructive pulmonary disease): Code(s): J44.9 - Chronic obstructive pulmonary disease, unspecified Category: Medical Plan: Stable. Counseled on smoking cessation. Not currently on any maintenance inhalers. (5) BPH (benign prostatic hyperplasia): Code(s): N40.0 - Benign prostatic hyperplasia without lower urinary tract symptoms Category: Medical Plan: Stable. Continue following with [facility]. Notes to be requested. Plan Follow-up in the office in 6 months. We will obtain records from [place] regarding labs and lung cancer screenings. We will request records from [facility] and [facility] vascular surgery. Orders: Orders Routine Culture w Gram Stain 6 Months H61.91 - Disorder of right external ear, unspecified, I73.9 - Peripheral vascular disease, unspecified, J44.9 - Chronic obstructive pulmonary disease, unspecified, N40.0 - Benign prostatic hyperplasia without lower urinary tract symptoms Lipid Panel 6 Months I73.9 - Peripheral vascular disease, unspecified, J44.9 - Chronic obstructive pulmonary disease, unspecified, N40.0 - Benign prostatic hyperplasia without lower urinary tract symptoms Basic Metabolic Panel 6 Months I73.9 - Peripheral vascular disease, unspecified, J44.9 - Chronic obstructive pulmonary disease, unspecified, N40.0 - Benign prostatic hyperplasia without lower urinary tract symptoms
[2025-03-20 14:30] VITALS: BP 118/72; PULSE 88; RESP 16; TEMP 37.2; O2SAT 98; BMI 23.9
--- OUTSIDE RECORDS SUMMARY | 2025-03-20 16:03 | XMS_ITS ---
Author Name [facility] [place] Address [address] [place] [address] Care Team Providers Care Site Lead Name Role Phone ERICA ELI Primary Care Provider Unavail able Insurance Providers: All historical and current Section [...] Name Patient's Relationship to Policy Hilario [place] F[place] PREFERRED PROVIDER ORGANIZAT ION (PPO) PSHB BASIC SELF Oct 05, 2024 [id number] PAM, MANNY PATIENT MEDICARE (WNR) MEDICARE (M) PART A Jun 05, 2016 PART A [id number] PAM, MANNY PATIENT MEDICARE (WNR) MEDICARE (M) PART A Jun 05, 2016 PART A [id number] MANNY OROZCO PATIENT Selected Encounter This section includes the information on record at [place] for the Encounter. Date/Time Encounter Type Encounter Description Reason Provider Source Jan 18, 2025 01:57 PM [facility] DIG ASSMT&MGMT 21+ PULMONARY/CHEST ICD-10-CM Z12.2 Encntr screen for malignant neoplasm of respiratory organs ИВАН MARIE IHDom Encounter Template Text not used by [place] Assessments - Encounter Diagnoses This section includes the primary and secondary diagnoses documented for the Encounter. Date/Time Primary/Secondary Diagnosis Diagnosis Name Provider Source Jan 18, 2025 02:02 PM PRIMARY Encntr screen for malignant neoplasm of respiratory organs ИВАН MARIE [facility] Plan of Treatment: Future Appointments (+ 6 months) and Future Tests (+/- 45 days) The Plan of Treatment section includes future care activities for the patient from all [place] treatmentfacilities. This section includes future appointments and future orders which are active, pending or scheduled. Future Appointments This section includes appointments that were scheduled to occur 6 months from the date of the Encounter, up to a maximum of 20 appointments. The data comes from all [place] treatment facilities. Appointment Date/Time Appointment Type Appointme nt Facility Name Apr 14, 2025 11:30 AM AMBULATORY - MEDICINE [facility] Social History: Smoking Status (Most current) and Tobacco Use (All prior to encounter date) This section includes the most current, and the historical, smoking and tobacco- related health factors from the [place] facility where the Encounter took place. Current Smoking Status This section includes the most current smoking, or tobacco-related health factor, from the [place] facility where the Encounter took place. Date/Time Current Smoking Status Comment Teri ity Aug 01, 2024 08:49 AM VA-TOBACCO NEVER USED [facility] Tobacco Use History This section includes a history of the smoking, or tobacco-related health factors, that were collected on or before the date of the Encounter. The data comes from the [place] facility where the Encounter took place. Date/Time Smoking Status/Tobacco Use Comment F acility Aug 06, 2023 08:50 AM VA-TOBACCO DOESNT USE WI 30 MIN WAKEUP [facility] Aug 06, 2023 08:50 AM VA-TOBACCO USE 30 YEARS OR MORE [facility] Aug 06, 2023 08:50 AM VA-TOBACCO USE ADVICE [facility] Aug 06, 2023 08:50 AM VA-TOBACCO USE CERTIFIED ETHICAL HACKER NO [facility] Aug 06, 2023 08:50 AM VA-TOBACCO USE MED NO [facility] Aug 06, 2023 08:50 AM VA-TOBACCO USER SOME DAYS [facility] Radiology Reports: +/- 30 days of [...] the Encounter. The data comes from all [place] treatment facilities. Date/Time Radiology Report Provider Source Jan 18, 2025 09:31 AM LDCT LUNG CANCER SCREENING: MANNY OROZCO Neris [id number] -[id number] M Ex Date: JAN 18, 2025@09:31 Req Phys: ESTELLA JUNIOR Loc: [facility] LCS CHART CONSULT (Req'g L Img Loc: [facility]/CT Service: Unknown [place] [address] (Case 140 COMPLETE) LDCT LUNG CANCER SCREENING (CT Detailed) CPT:84193 Reason for Study: LUNG CANCER SCREENING Clinical History: 51 TPY-Quit 2022 Fmhx: Sister with breast cancer dx at 40 yo Prior imaging: CT scan of the chest from January 29, 2023, January 29, 2022 and December 24, 2020. Most recent LCS LDCT done on 02/09/2024: LR 1 Report Status: Verified Date Reported: JAN 18, 2025 Date Verified: JAN 18, 2025 Recreational Vehicle Repairer E-Sig:/ES/AGAPITO BEAN Report: CT THORAX LUNG CANCER SCR C- 01/18/2025 9:31 AM COMPARISON: 02/09/2024, 01/29/2023, 12/24/2020 TECHNIQUE: Non-contrast helical low-dose CT (LDCT) of the chest using lung cancer screening protocol. Iterative reconstruction technique was employed in order to reduce radiation exposure to the patient. Vessel suppression and nodule detection algorithms were applied. Imaging technique is not optimized for detection of soft tissue abnormalities. FINDINGS: Lung screening specific (LUNG-RADS): Stable 2 mm nodule right upper lobe series 8 image 87. Redemonstrated are focal filling defects in subsegmental airways in the posterior and medial basal segment of the right lower lobe consistent with mucous. Potentially significant incidentals (LUNG-RADS category S): None. Pulmonary incidentals: Emphysema. Other incidentals: Cholelithiasis and diverticulosis. Impression: 1. LUNG-RADS Category : Lung RADS category 2, benign appearance and behavior. 2. LUNG-RADS Category S: None. RECOMMENDATIONS: Continue low-dose CT lung cancer screening protocol. Primary Diagnostic Code: No immediate attention required Primary Interpreting Staff: AGAPITO BEAN Staff Physician (Recreational Vehicle Repairer) /AGAPITO OQUENDO [facility] Encounter Notes: All associated encounter notes This section contains the clinical notes associated to the Encounter. Date/Time Encounter Note(s) Provider Source Jan 18, 2025 02:05 PM [facility]VENT[facility] MEDICINE RISK ASSESSMENT SCREENING NOTE: LOCAL TITLE: LUNG CANCER SCREENING DOCUMENTATION STANDARD TITLE: PREVENTIVE MEDICINE RISK ASSESSMENT SCREENING NO DATE OF NOTE: JAN 18, 2025@14:05 ENTRY DATE: JAN 18, 2025@14:05:06 AUTHOR: CRISTOFER MARIE COSIGNER: URGENCY: STATUS: COMPLETED January 18, 2025 Dear : Mr. Manny Orozco, Your recent lung cancer screening CT scan found a small lung nodule. Most nodules are not lung cancer, but a few can grow into lung cancer. As mentioned in the enclosed brochure, nodules are often caused by scar tissue, a healed infection, or some other irritant found in the air we breathe. Nodules are detected in up to half of screening CT scans, but very few nodules returning officer to be cancer. In general, more than 95 out of 100 nodules found on lung cancer screening CT scans are not lung cancer. A copy of the results from your Low-Dose CT scan done on 01/18/2025 are enclosed with this letter. If there are additional findings, we will alert your primary care team. Your next lung cancer screening CT scan is due in 12 months(JANUARY 2026). You can call Imaging at [phone] to schedule this appointment. Or the Radiology team will reach out to schedule about 3 months prior to when your scan is due. If at the time of your next scan you are experiencing an upper respiratory illness like a cold or the flu, please get your scan 4 weeks after your symptoms have gone away. Lung cancer screening can detect lung cancer, but it does not prevent it. Rarely, a CT scan can miss a small lung cancer. Contact your primary care provider if you develop new symptoms like worsening shortness of breath, change in a cough, or coughing up blood. If you still smoke cigarettes, we can help you quit. We understand that quitting cigarette smoking is difficult, but it is the best way to improve your health. When you want help, let your primary care provider know. You can also call 1-396-TTVC-VET ( ) or visit [employer]smokefree.gov. Please contact us with questions or concerns about lung cancer screening. Sincerely, VERA Ames, RN Ext [phone] [facility] Lung Cancer Screening Coordinator Enclosures: brochure entitled, Small Lung Nodules: What You Need to Know /es/ VERA RICHARD,RN. LUNG CANCER SCREENING NURSE Signed: 01/18/2025 14:05 CRISTOFER MARIE [facility] Jan 18, 2025 01:57 PM PREVENTIVE MEDICINE RISK ASSESSMENT SCREENING NOTE: LOCAL TITLE: LUNG CANCER SCREENING DOCUMENTATION STANDARD TITLE: PREVENTIVE MEDICINE RISK ASSESSMENT SCREENING NO DATE OF NOTE: JAN 18, 2025@13:57 ENTRY DATE: JAN 18, 2025@13:57:08 AUTHOR: CRISTOFER MARIE EXP COSIGNER: URGENCY: STATUS: COMPLETED NO LUNG NODULES or TRACKING OF NODULE NOT INDICATED per guidelines (e.g., clearly benign/some small nodules). Date of image: Date: January 18, 2025 LDCT Scan Results: Most recent LDCT scan shows a nodule for which tracking is not indicated per guidelines or radiology report. Lung RADS Score: 2 LUNG-RADS Category : Lung RADS category 2, benign appearance and behavior. Stable 2 mm nodule right upper lobe series 8 image 87. INCIDENTAL FINDINGS WILL BE MANAGED DEEMED APPROPRIATE BY PCP Incidental Findings: The following *INCIDENTAL FINDINGS* were noted: Other: Redemonstrated are focal filling defects in subsegmental airways in the posterior and medial basal segment of the right lower lobe consistent with mucous. Pulmonary incidentals: Emphysema. Other incidentals: Cholelithiasis and diverticulosis. I am notifying the Primary Care Provider for information, and for follow-up of incidental findings, if indicated. Comment: PCP as second signer in CPRS. Plan: Continue routine annual lung cancer screening. Patient Notification of results: Results letter sent to patient. Patient contacted by telephone. Call placed to the . Results of LCS LDCT reviewed specific to pulmonary nodules/masses. Bunker aware stable small nodule, education on small lung nodules provided. Importance of and rationale for continued surveillance with LDCT at an annual interval discussed. Bunker agrees with continued surveillance through the lung cancer screening program and LCS LDCT in one year. We did discuss emphysema findings, Bunker quit smoking 2022! congratulated Bunker on this amazing accomplishment! Order for LCS LDCT in 12 months placed, held for PCP signature /yoon/ VERA RICHARD,RN. LUNG CANCER SCREENING NURSE Signed: 01/18/2025 14:03 Receipt Acknowledged By: 01/18/2025 14:20 /yoon/ FERNY CARRIONC CERTIFIED NURSE PRACTITIONER CRISTOFER MARIE [facility]
== END 2025-03-20 15:22 | disposition home or self-care (01) ==
LOC: HO.HMCHD 14:21
PROVIDERS: PCP Internal Medicine; Visit Provider Physician Assistant
DX: C44.92 Squamous cell carcinoma of skin, unspecified (principal); H61.91 Disorder of right external ear, unspecified; I73.9 Peripheral vascular disease, unspecified; J44.9 Chronic obstructive pulmonary disease, unspecified; N40.0 Benign prostatic hyperplasia without lower urinary tract symptoms

== ENCOUNTER 2025-08-29 07:45 | Outpatient (AMB) | payer BC, SELFPAY ==
--- OUTSIDE RECORDS SUMMARY | 2025-08-29 07:49 | XMS_ITS | Clinical Summary ---
Author Organization [facility] Address [address] [place] [address] Care Team Providers Care Blending Coordinator Name Role Phone Bobby Deleon MD Primary Care Provider [phone] Social History Tobacco Use Types Packs/Day Years [...] 1 - PCV) 2016 Influenza Vaccine (#1) 2025 RSV Adult > 60+ Yrs or Pregn ant (1 - 1-dose 75+ series) 2026 Hepatitis B Vaccines Aged Out No long er eligible based on patient's age to complete this topic RSV Ped < 20 months Aged Out No longe r eligible based on patient's age to complete this topic Care Teams Blending Coordinator Relationship Specialty Start Date End Date Bobby Deleon MD [address] [place] [address] [address] [place] [address] PCP - General Notch Grinder 12/31/17
--- OUTSIDE RECORDS SUMMARY | 2025-08-29 07:49 | XMS_ITS | Clinical Summary ---
Author Organization [facility] Address [address] [place] [address] Phone Care Team Providers Care Curriculum Advisory Teacher Name Role Phone Pcp, Unknown Primary Care Provider Unavailabl e Encounters Date Type Department Care Team Description 08/02/2025 7:43 PM EDT - 08/02/2025 11:59 PM EDT Hospital Encounter [facility] [address] [place] [address] Carter Cote PA Discharge Disposition: Home or Self Care 08/02/2025 Transcribe Orders [facility] Specimen [facility] [address] [place] [address] Carter Cote PA Illness (Primary Dx) from Last 3 Months Social History Tobacco Use Types Packs/Day Years Used Date Smoking Tobacco: Never Assessed Education Answer Date Recorded Are you interested in more education? Not on israel e 08/03/2025 Are you concerned about learning? Not on file 08/03/2025 No 08/03/2025 No 08/03/2025 Digital Access Answer Date Recorded No 08/03/2025 No 08/03/2025 Reliable internet access at home? Not on file 08/03/2025 Device with a working camera? Not on file Sex and Gender Information Value Date Recorded Sex Assigned at Not on file Legal Sex Male 7:36 PM EDT Gender Identity Not on file Sexual Orientation Not on file Plan of Treatment Not on file Medical Devices Not on file Procedures Procedure Name Priority Date/Time Associated Diagnosis Comments WOUND CULTURE/SMEAR Routine 08/02/2025 7 :44 PM EDT Illness from Last 3 Months Results * (ABNORMAL) Wound culture/smear (08/02/2025 7:44 PM EDT) Special Requests None 08/02/2025 7:44 PM EDT [facility] GRAM STAIN Few WBC'S , Few GRAM POSITIVE RODS , Few GRAM POSITIVE COCCI 08/03/2025 8:25 AM EDT [facility] Wound Culture/Smear MIXED ORGANISMS RESEMBLING CUTANEOUS FRANNY(A) 08/04/2025 1:35 PM EDT [facility] Other (Skin) 08/02/2025 7:44 PM EDT 08/02/2025 7:46 PM EDT Comment:SKIN APPENDAGE SWAB us Carter [facility] MICROBIOLOGY CULTURE O RDERABLES Final Result [facility] [address] [place] [address] from Last 3 Months Care Teams Curriculum Advisory Teacher Relationship Specialty Start Date End Date Pcp, Unknown PCP - General 08/02/25 Additional Source Comments The information contained in this document represents components of the legal health record. It is not the complete legal health record.[facility]
--- OUTSIDE RECORDS SUMMARY | 2025-08-29 07:49 | XMS_ITS | Clinical Summary ---
Author Organization [facility] it Address [address] [place] [address] Care Team Providers Care Cork Insulation Installer Name Role Phone Bobby Deleon MD Primary Care Provider [phone] Surgical History Surgery Date Site/Laterality Comments BACK SURGERY PROCEDURE: HISTORICAL BACK SURGERY COLONOSCOPY PROCEDURE: HISTORICAL COLONOSCOPY KNEE SURGERY PROCEDURE: HISTORICAL KNEE SURGERY Medical History Medical History Date Comments BPH (benign prostatic hyperplasia) DX:BPH (benign prostatic hyperplasia) COPD (chronic obstructive pu lmonary disease) ([facility]/HCC V24, CMS/HCC V28) DX:COPD (chronic o bstructive pulmonary disease) ([facility]) GERD (gastroesophageal reflux disease) DX:GERD (gastroesophageal reflux disease) Social History Tobacco Use Types Packs/Day Years Used Date Smoking Tobacco: Every Day Cigarettes Smokeless Tobacco: Never Alcohol Use Standard Drinks/Week Comments Not Asked 0 (1 standard drink = 0.6 oz pur e alcohol) Sex and Gender Information Value Date Recorded Sex Assigned at Not on file Legal Sex Male 5:09 PM EST Gender Identity Not on file Sexual Orientation [...] Health Maintenance Due Date Last Done Comments Colorectal Cancer Screening: Colonoscopy 1950 DTaP,Tdap,and Td Vaccines (1 - Tdap) 1970 Pneumococcal Vaccine: 50+ Ye ars (1 of 2 - PCV) 1970 Zoster Vaccines (1 of 2) 2001 Abdominal Aortic Aneurysm (A AA) Screen 09/03/2022 Cholesterol Screening (Lipid Panel) 09/03/2022 Falls Risk Assessment 09/03/2022 Hepatitis C Screening 09/03/2022 Social Influencers of Health Screening 09/03/2022 Hypertension/CHF/CAD Annual BMP Blood Test 11/20/2023 Depression Screening 10/05/2024 COVID-19 Vaccine (1 - 2024-2 6 season) 2025 Influenza Vaccine (#1) 2025 RSV Immunization Adult Patie nts (1 - 1-dose 75+ series) 2026 HIB [...] patient's age to complete this topic Meningococcal B Vaccine Aged Out No l onger eligible based on patient's age to complete this topic RSV Immunization Patients Un martin 20 months Aged Out No longer eligible b ased on patient's age to complete this topic Varicella Vaccines Aged Out No longer eligible based on patient's age to complete this topic Care Teams Cork Insulation Installer Relationship Specialty Start Date End Date Bobby Deleon MD [address] [place] [address] Dr Cristal MA PCP - General Project Admin 12/31/17
--- NOTE | 2025-08-29 08:01 | A.OFFPC_ITS ---
Vital Signs 08/29/25 08:06 Height 6 ft 1 in Weight 81.193 kg BMI 23.6 BP 100/60 Blood Pressure Location Lt brachial Position Sitting Respiration 18 Pulse 107 H Pulse Source Pulse Oximeter Temp 98 F Temp Source Temporal Artery Scan Pulse Oximetry (%) 98 Oxygen Delivery Method Room Air Intake Visit Reasons: patient would like to f/u w/ provider-see comment Cloth Colorer Required: No Accompanied by: Self / Same As Patient Allergies No Known Allergies Allergy (Verified 08/29/25 08:01) Medication List - Last Reconciled 08/29/25 by ELBA Vasquez latanoprost 0.005% 1 drp ophthalmic (eye) BEDTIME omeprazole 20 mg PO DAILY trazodone 100 mg PO BEDTIME Tobacco use date assessed: 08/29/25 Fall risk assessment: 1 Fall in past year Last assessed Fall Risk: 08/29/25 Dental Screening Dental Screen Date: 08/29/25 Did you have a dental visit in the last 12 months?: No Did you have a dental problem in the last 6 months where you did not have access to dental care?: No Was dental information given to patient?: Patient declined HPI HPI Comments History of Present Illness Details 74-year-old male with peripheral arteria l disease, BPH, CKD stage 3, COPD, GERD presents to the office today for management of chronic conditions. Peripheral artery disease-s/p left femoral to above-knee popliteal bypass 02/24 and left lower extremity thrombolysis. He does report [place], otherwise has been asymptomatic. No longer on Eliquis or any antiplatelet inhibitor. Not on statin. Follows with Dr. Stevens at [facility] vascular surgery. COPD-not on maintenance inhalers GERD-stable on omeprazole CKD stage 3-stable with creatinine 1.18. Cataract-left eye. S/p extraction. Continues on latanoprost Elevated PSA/BPH-following with [facility], not currently on medications. 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 S/p multiple Mohs procedures. [place] Cigarette smoking- quit smoking! [facility] Concerns: Early Parkinsons?- per Dr. Deleon. Tingling in left upper extremity, mostly at night. Weakness in first 3 fingers but still number in 4-5th fingers. Worse when he wakes up. No pain. Otherwise normal ROM in LUE. No ataxia, tremors, dysphagia, difficulty breathing. x1.5 years. Tolerable at the moment. Has not worsened. ROS: General: No fevers, malaise, unintentional weight loss HEENT: No blurred vision, diplopia. see hpi Cardiovascular: No chest pain, palpitations, or leg edema Respiratory: No shortness of breath, wheezing, cough MSK: No myalgia, back pain Neuro: No headaches, weakness. see hpi Skin: see hpi EXAM: Constitutional - Awake and Alert, No apparent distress Eyes - PERRL Cardiovascular - S1S2, RRR, No edema Respiratory - Normal lung expansion, Normal respiratory effort, No respiratory distress, CTA bilaterally Extremities - no calf tenderness bilaterally, no swelling Skin - Warm/Dry. Swelling of the pinna of the right ear with some purulent drainage noted. No warmth or significant erythema. Neurological - Alert & oriented x3 Psychological - Appropriate affect [facility] Medical History (Updated 08/29/25 @ 08:27 by ELBA Vasquez) Actinic keratosis Squamous cell carcinoma of skin History of femoral angiogram Glaucoma BPH (benign prostatic hyperplasia) GERD (gastroesophageal reflux disease) COPD (chronic obstructive pulmonary disease) Surgical History (Updated 03/17/25 @ 12:42 by Lizbeth Valente) Hx of total knee replacement Hx of bilateral hip replacements Status post right rotator cuff repair Hx of knee surgery History of back surgery Hx of colonoscopy (~05/06/22) Social History Household Members: None [facility] Are you a primary youth care professional to a significant other at home: No Do you presently have visiting nurse or other home services: No Patient Tobacco Use Status: Former Tobacco user Tobacco use type: Cigarette Cigarettes Per Day: 4 Years Smoked: 50 e-Cigarette/Vaping Use: Never Used Second Hand Smoke Exposure: No service: Yes Current occupational status: retired Questionnaire Thrive Questionnaire Date Thrive assessed: 03/20/25 AUDIT C Alcohol Use Questionnaire (AUDIT-C) 1. How often do you have a drink containing alcohol?: Monthly or less 2. How many drinks containing alcohol do you have on a typical day when you are drinking?: 1 or 2 3. How often do you have six or more drinks on one occasion?: Never Total Score: 1 CONNIE-7 AMB Questionnaire CONNIE-7 Date CONNIE - 7 assessed: 03/20/25 Source: Developed by Drs. Isidro Madrigal, Faye Franco, Xu Romano and colleagues, with an educational mulu from [email or web address]. Physical exam (Primary Care) Tobacco/Smoking Status: Tobacco use Status Patient Tobacco Use Status Former Tobacco user 08/29/25 08:03 Tobacco use type Cigarette 08/29/25 08:03 Thrive Assessment: Date of Thrive Assessment Date Thrive assessed 03/20/25 08/29/25 08:03 Coding Level of Care Code Est Pt Level 4 (80995) Complex visit Add On G2211 Diagnoses Squamous cell carcinoma of skin C44.92 PAD (peripheral artery disease) I73.9 COPD (chronic obstructive pulmonary disease) J44.9 BPH (benign prostatic hyperplasia) N40.0 Paresthesias in left hand R20.2 Assessment & Plan Assessment & Plan (1) Squamous cell carcinoma of skin: Code(s): C44.92 - Squamous cell carcinoma of skin, unspecified Category: Medical Plan: Stable for the time. Continue following with Dermatology. (2) PAD (peripheral artery disease): Comment: 12/29/2022 - left femoral to above knee popliteal bypass 02/18/2023 - left lower extremity thrombolysis Code(s): I73.9 - Peripheral vascular disease, unspecified Category: Medical Plan: Continue following as scheduled. Stable claudication. Not currently on any statin therapy or blood thinners. (3) COPD (chronic obstructive pulmonary disease): Code(s): J44.9 - Chronic obstructive pulmonary disease, unspecified Category: Medical Plan: Stable. Commended on smoking cessation. Not currently on any maintenance inhalers. (4) BPH (benign prostatic hyperplasia): Code(s): N40.0 - Benign prostatic hyperplasia without lower urinary tract symptoms Category: Medical Plan: Stable. Continue following with [facility]. Notes to be requested. (5) Paresthesias in left hand: Code(s): R20.2 - Paresthesia of skin Category: Medical Plan: Does not seem consistent with Parkinson's disease. Monitor Plan Follow-up in the office in 6 months. We will obtain records from [place] regarding labs and lung cancer screenings. Patient Instructions: Try valerian root for insomnia. Can take with trazodone
[2025-08-29 08:06] VITALS: BP 100/60; PULSE 107; RESP 18; TEMP 36.6; O2SAT 98; BMI 23.6
== END 2025-08-29 08:29 | disposition home or self-care (01) ==
LOC: HO.HMCHD 07:46
PROVIDERS: PCP Physician Assistant; Visit Provider Physician Assistant
DX: C44.92 Squamous cell carcinoma of skin, unspecified (principal); I73.9 Peripheral vascular disease, unspecified; J44.9 Chronic obstructive pulmonary disease, unspecified; N40.0 Benign prostatic hyperplasia without lower urinary tract symptoms; R20.2 Paresthesia of skin